=== PATIENT | female | born 1980 | race Caucasian/White ===

== ENCOUNTER 2022-08-17 17:52 | Emergency (ER) | payer OTHER, SELFPAY ==
--- NOTE | ~2022-08-17 | XR_ITS ---
EXAM: XR ankle RT min 3V, XR foot RT min 3V DATE: 08/17/2022 18:58 HISTORY: Pt twisted ankle today. Lateral ankle pain into foot . COMPARISON: None available. FINDINGS: Normal mineralization. Fracture fragments adjacent to the anterior talus and calcaneus, se en only in the medial oblique view of the foot. Tiny osseous fragment distal to the tip of the latera l malleolus. Question of cortical irregularity along the lateral aspect of the calcaneus, seen in the frontal view. No lytic or blastic lesion. Joint spaces are maintained. No erosion or periosteal calderón ge. Soft tissues within normal limits. IMPRESSION: Mildly displaced fracture fragment along the dorsal lateral aspect of the midfoot, may re present a fracture of the anterior calcaneal process or talar process. Tiny lateral malleolus avulsio n. Possible extensor digitorum brevis avulsion, correlate with lateral and posterior calcaneal pain/t enderness. Reviewed, dictated and finalized at location K. IMPRESSION: Mildly displaced fracture fragment along the dorsal lateral aspect of the midfoot, may represent a fracture of the anterior calcaneal process or t alar process. Tiny lateral malleolus avulsion. Possible extensor digitorum brev is avulsion, correlate with lateral and posterior calcaneal pain/tenderness.
[2022-08-17 18:08] VITALS: BP 124/84; PULSE 86; RESP 16; TEMP 36.9; O2SAT 98
--- NOTE | 2022-08-17 20:56 | ED.LOWEXIN ---
HPI - Extremity Injury (Lower) General Chief Complaint: Extremity Injury, Lower Stated Complaint: right foot injury Time Seen by Provider: 08/17/22 20:32 History of Present Illness HPI Narrative: This is a 42-year-old female who denies past medical history, presenting the emergency department with right foot pain after stumbling down stairs. She states she was walking downstairs when she missed stepped, seeing forced inversion of the right foot. She states her pain is 8 out of 10 with weightbearing but only 1-2 out of 10 at rest. She denies other injury or loss of consciousness Related Data Allergies Allergy/AdvReac Type Severity Reaction Status Date / Time No Known Allergies Allergy Verified 08/17/22 20:27 Review of Systems Review of Systems: CONSTITUTIONAL: Denies fever, chills, or sweats. EYES: Denies visual changes, redness, or discharge. ENT: Denies rhinorrhea, congestion, sore throat, or otalgia. CARDIOVASCULAR: Denies chest pain, palpitations, or edema. RESPIRATORY: Denies cough or dyspnea. GASTROINTESTINAL: Denies abdominal pain, nausea, vomiting, or diarrhea. GENITOURINARY: Denies dysuria or hematuria. SKIN: Denies rash or itching. MUSCULOSKELETAL: Right foot pain denies back pain, or myalgia. NEUROLOGIC: Denies headache, numbness, dizziness, or weakness. PSYCHIATRIC: Denies anxiety or depression. Exam Narrative: GENERAL: Well-appearing, well-nourished, and in no acute distress. HEAD: Normocephalic, atraumatic. EYES: PERRLA and EOMI. ENT: Nares clear, no rhinorrhea or epistaxis. Mucous membranes moist. Oropharynx without tonsillar hypertrophy exudate or other lesions. NECK: Supple. No adenopathy or masses. No carotid bruits or JVD CHEST: Clear to auscultation. No respiratory distress. No wheezes rales or rhonchi HEART: Regular rate and rhythm. No murmur heard. Normal peripheral pulses. ABDOMEN: Soft, nontender, nondistended, normal active bowel sounds. EXTREMITIES: Mild tenderness to palpation over the anterior lateral aspect of the right midfoot, no significant swelling, ecchymosis or erythema, normal range of motion. No edema. SKIN: Warm, dry, no rash. NEURO: No focal deficits. Alert and oriented x3. PSYCH: Normal mood and affect. Course Course Emergency Course: 21:00 - Findings with orthopedic surgeon, Dr. Waters who recommends posterior ankle splint, weightbearing as tolerated and follow-up. Discussed finding with the patient and recommendations as above. She discussed return emergency precautions including signs/symptoms of neurovascular compromise and infection. The patient was understands comfortable to plan. All questions answered to her satisfaction Vital Signs Vital signs: Vital Signs Temperature 98.4 F 08/17/22 18:08 Pulse Rate 86 08/17/22 18:08 Respiratory Rate 16 08/17/22 18:08 Blood Pressure 124/84 08/17/22 18:08 Pulse Oximetry 98 08/17/22 18:08 Temperature 98.4 F 08/17/22 18:08 Pulse Rate 86 08/17/22 18:08 Respiratory Rate 16 08/17/22 18:08 Blood Pressure 124/84 08/17/22 18:08 Pulse Oximetry 98 08/17/22 18:08 MDM - Extremity Injury (Lower) MDM Narrative Medical decision making narrative: Plan: Imaging, pain control, reassess Differential Diagnosis Differential diagnosis: Likely ankle sprain and strain and other (Fracture foot, other) Discharge Plan Discharge Clinical Impression: Fracture of talus of right ankle, closed, Acute pain of right foot Patient Disposition: Home, Self-Care Condition: Stable Instructions: Antibiotic Form, Talar Fracture in Adults (ED) Additional Instructions: You were seen in the emergency department. Your x-ray shows a fracture of the talus. I recommend wearing a posterior ankle splint, limiting weightbearing as much as possible and following up with an orthopedic surgeon in the 1 week. If you develop blue or cold toes, fevers with severe foot pain, or other emergent concerns for life, limb, or eyesigh
[2022-08-17] MEDS: oxyCODONE/ACETAMINOPHEN (*CRX) 5-325 MG TABLET 1 TABLET PO (20:58)
== END 2022-08-17 22:50 | disposition home or self-care (01) ==
LOC: ANHED 22:04
PROVIDERS: Emergency Provider Preventive Medicine Aerospace Medicine
DX: S92.101A Unspecified fracture of right talus, initial encounter for closed fracture (principal); W18.40XA Slipping, tripping and stumbling without falling, unspecified, initial encounter
CPT/HCPCS: 29515; 73610; 73630; 99284; A9270

== ENCOUNTER 2023-02-24 08:03 | Outpatient (CLI) | payer BC, OTHER, SELFPAY ==
[2023-02-24 18:59] LABS: Basophils Absolute Auto 0.1 K/mm3 (0.0-0.1); Basophils Percent Auto 0.6 % (0.2-1.2); Eosinophils Absolute Auto 0.2 K/mm3 (0-0.3); Eosinophils Percent Auto 1.8 % (0-4.4); Hematocrit 43.7 % (37.0-47.0); Hemoglobin 14.4 g/dL (12.0-15.0); Immature Granulocyte Absolute 0.04 K/mm3 (0.00-0.031); Immature Granulocyte Percent A 0.5 % (0-0.5); Lymphocytes Absolute Auto 2.98 K/mm3 (0.9-3.2); Lymphocytes Percent Auto 33.8 % (18.3-44.2); Mean Corpuscular Volume 97.1 fl (80-100); Mean Platelet Volume 9.1 fl (7.4-10.4); Monocytes Absolute Auto 0.6 K/mm3 (0.1-0.6); Neutrophils Percent Auto 56.3 % (45.5-73.1); Platelet Count Result 307 k/mm3 (150-375); Red Cell Distribution Width 13.5 % (11.5-14.5); White Blood Count 8.8 K/mm3 (4.5-10.0)
[2023-02-24 19:01] LABS: Alanine Aminotransferase 73 U/L (6-35); Albumin Level 4.5 g/dL (3.5-5.1); Alkaline Phosphatase 83 U/L (38-126); Anion Gap 5 mmol/L (8-16); Aspartate Amino Transferase 55 U/L (14-36); Bilirubin,Total 0.7 mg/dL (0.2-1.3); Blood Urea Nitrogen 16 mg/dL (7-17); Calcium 9.1 mg/dL (8.4-10.2); Carbon Dioxide 28 mmol/L (22-30); Chloride 106 mmol/L (98-107); Cholesterol 237 mg/dL (0-200); Estimated Glomerular Filt Rate > 60; Glucose 88 mg/dL (65-110); HDL Direct 40 mg/dL; Potassium 4.1 mmol/L (3.4-5.0); Sodium 139 mmol/L (137-145); Triglycerides 353 mg/dL (<150)
[2023-02-24 19:12] LABS: LDL Cholesterol Direct 148 mg/dL
[2023-02-24 19:35] LABS: Vitamin D 25 Hydroxy 24.9 ng/mL
== END 2023-02-24 08:04 | disposition home or self-care (01) ==
LOC: ANHGOSHLAB 08:05
PROVIDERS: PCP Internal Medicine; Visit Provider Nurse Practitioner
DX: F41.9 Anxiety disorder, unspecified (principal); Z13.220 Encounter for screening for lipoid disorders
CPT/HCPCS: 36415; 80053; 80061; 82306; 84443; 85025

== ENCOUNTER → 2023-04-18 07:42 | Outpatient (CLI) | payer BC, OTHER, SELFPAY ==
--- NOTE | ~2023-04-18 | US_ITS ---
US right upper quadrant INDICATION: Elevated liver function tests. PROCEDURE: Realtime right upper abdominal ultrasound. COMPARISON: No prior studies for comparison. FINDINGS: The pancreas is normal without focal mass or pancreatic ductal dilation. Liver echotexture is increased, consistent with fatty infiltration. There is normal directional flow in the portal ve in. There is comet tail artifact originating from the nondependent aspect of the gallbladder, consistent with adenomyomatosis. No gallstones, gallbladder wall thickening or pericholecystic fluid. Common bi le duct measures 7 mm. No sonographic Myers's sign. IMPRESSION: 1: Adenomyomatosis of the gallbladder. Common bile duct upper limits of normal measuring 7 mm. 2: Hepatic steatosis. Reviewed, dictated and finalized at location L.
== END ==
PROVIDERS: PCP Nurse Practitioner; Visit Provider Nurse Practitioner
DX: R74.8 Abnormal levels of other serum enzymes (principal); K76.0 Fatty (change of) liver, not elsewhere classified
CPT/HCPCS: 76705

== ENCOUNTER 2023-04-18 08:22 | Outpatient (CLI) | payer BC, OTHER, SELFPAY ==
[2023-04-18 15:54] LABS: HIV 1/2 Ab P24 Ag Result Negative (Negative)
[2023-04-18 17:38] LABS: Hepatitis B Surface Antigen Negative (Negative)
[2023-04-18 17:49] LABS: Iron 121 ug/dL (37-170)
[2023-04-18 17:55] LABS: Hepatitis C Virus Antibody Negative (Negative)
[2023-04-18 17:58] LABS: Percent Iron Saturation 35 % (20-50)
== END 2023-04-18 08:23 | disposition home or self-care (01) ==
LOC: ANHGOSHLAB 08:24
PROVIDERS: PCP Nurse Practitioner; Visit Provider Nurse Practitioner
DX: R74.8 Abnormal levels of other serum enzymes (principal)
CPT/HCPCS: 36415; 83540; 83550; 86703; 86803; 87340; G0432

== ENCOUNTER 2023-06-27 09:25 | Outpatient (CLI) | payer BC, OTHER, SELFPAY ==
[2023-06-27 10:40] LABS: Alanine Aminotransferase 62 U/L (6-35); Albumin Level 4.5 g/dL (3.5-5.1); Alkaline Phosphatase 88 U/L (38-126); Amylase 56 U/L (30-110); Aspartate Amino Transferase 55 U/L (14-36); Bilirubin,Total 0.6 mg/dL (0.2-1.3); Lipase 109 U/L (23-300)
== END 2023-06-27 09:26 | disposition home or self-care (01) ==
LOC: ANHLAB 09:27
PROVIDERS: PCP Nurse Practitioner; Visit Provider Surgery
DX: K80.50 Calculus of bile duct without cholangitis or cholecystitis without obstruction (principal); Z01.818 Encounter for other preprocedural examination
CPT/HCPCS: 36415; 80076; 82150; 83690; 86850; 86900; 86901

== ENCOUNTER 2023-06-29 01:32 | Day surgery (SDC) | payer BC, OTHER, SELFPAY ==
[2023-06-23 12:38] VITALS: BMI 36.5
--- NOTE | 2023-06-23 12:43 | PC.NURSE ---
Report to the Outpatient Waiting Room, entrance under the green pavilion located off [facility], at time 7:00 on date 06/29/23. Planned Procedure Time: 9:00. Time changes happen often and if your time is changed the preop area will call you the afternoon before. - You and your visitor will be asked to self-screen and do not enter if you have any COVID symptoms. - A mask is optional within the hospital at this time. Patients may have clear liquids (water, carbonated beverages, clear teas, apple juice) until 3 hours prior to surgery (6:00) with a maximum of 20 ounces. - No food from midnight until time of surgery Take the following medications with a SIP of water the morning of surgery: SERTRALINE DO NOT STOP ANY OF YOUR OTHER PRESCRIPTION MEDICATIONS PRIOR TO SURGERY ?EXCEPT THE FOLLOWING Medications to discontinue per physician: N/A Date to take last dose: N/A Please no make-up, nail norwegian, hairspray, perfume, deodorant, or body powder the day of surgery. No jewelry (including any body piercings) or valuables the day of surgery, leave them at home. Please take a shower or bath the night before, or the morning of, surgery with an antibacterial soap (HIBICLENS). Wear comfortable, loose fitting clothing. - Jewelry must be removed prior to entering the operating room. Rings and piercings that are not removed may be cut off. - The hospital will not accept responsibility for valuables. - Please leave all valuables, including medications, at home the day of surgery. If you are going home after surgery, a licensed solo truck driver must drive you home. - NO public transportation without another adult if you receive anesthesia. - We recommend that an adult stay with you for 24 hours following discharge. - We also recommend that you do not drive, make important decision, drink alcoholic beverages, or take any drugs that were not prescribed by your health care provider for at least 24 hours after your discharge time. Follow any additional instructions given to you from your surgeon. If you or anyone in your household have experienced Covid symptoms in the past week, please notify your surgeon or the nurse liaison at the phone number below for possible testing. Telephone instructions given to PT - JARAD HAQUE and asked if any additional questions and then verbalized understanding. Patient advised to call surgeon office or pre surgery nurse liaison [phone] if any additional questions.
[2023-06-29] VITALS (11 sets, daily range): BP systolic 107–139; BP diastolic 61–84; PULSE 69–105; RESP 12–20; TEMP 36.4–36.6; O2SAT 93–96
--- NOTE | 2023-06-29 07:16 | WPDHPUPDATE1 ---
History and Physical Update Update Date/Time: 06/29/23 07:16 History and Physical has been reviewed, including an updated exam of the patient. There are NO changes in the patient's condition. Risks, benefits, and alternatives have been discussed and questions answered. Patient agrees to proceed with procedure.
[2023-06-29] MEDS: ACETAMINOPHEN 500 MG TABLET 1000 MG PO (07:43)
[2023-06-29] MEDS: KETOROLAC 15 MG/ML VIAL (*BKC) IV PUSH (07:50)
--- NOTE | 2023-06-29 07:50 | WPDANESEPPF ---
Anes - Initial Pre Proc Eval Procedure: Operation Date: 06/29/23 09:00 Proposed Procedures p Laparoscopic Cholecystectomy - Chasity Webber MD Date/Time: 06/29/23 07:50 Surgeon: Chasity Webber MD Pre Op Diagnosis: Biliary Colic, Gallbladder Polyp Patient Data Age: 43 Gender: F Height: 1.73 m Weight: 108.9 kg Allergies Allergy/AdvReac Type Severity Reaction Status Date / Time No Known Allergies Allergy Verified 06/23/23 12:38 Home Medications Medication Instructions Recorded Confirmed Type sertraline 100 mg tablet 100 mg PO DAILY #90 tabs 04/07/23 06/23/23 Rx Patient hx anesthesia problems: none Family hx anesthesia problems: none Results Review: All pre-operative results and documents have been reviewed as part of the pre-operative evaluation. [facility] Past Medical History Medical History (Updated 06/16/23 @ 10:25 by Chiara Morse [facility]) Anxiety Surgical History Surgical History H/O section x2 Family History Family History Other Ovarian cancer Social History Social History Years smoked: 7 Smoking status: Former smoker Tobacco type: cigarettes Smoking end date: 10/30/05 Alcohol intake: current Drinks per week: 3 Substance use: never Substance use type: does not use Lack of Transportation: No Lack of Food: Never True Current Housing: I Have Housing Concerned About Future Housing: No Difficulty Paying Gas/Electric Bills: No Difficulty Paying for Meds: No Currently Unemployed: No Education: Bachelor's Degree Difficulty w/ Childcare or Family Care: No Living arrangements: with family Occupation/Education: occupation Gender identity (if verbalized by the patient): Female Spiritual care concerns: No Anes - Eval Final PreProcedure Day of Procedure 06/29/23 07:50 Patient weight: obese Heart: regular rate and rhythm Lungs: clear to auscultation Airway: Mallampati scale class II Neurological: alert and oriented Last oral intake: >/= 8 hours ASA classification: II Emergent: no Anesthetic plan: proceed Anesthesia type and monitoring: general ETT and standard monitoring Results Review: All pre-operative results and documents have been reviewed as part of the pre-operative evaluation. Informed Consent: The patient's anesthetic plan and its attendant risks and benefits were discussed with the patient/family/POA. Questions were solicited and answers provided to the satisfaction of the patient/family/POA.
[2023-06-29] MEDS: LACTATED RINGERS 1,000 ML 30 ML IV CONT ×2 (07:56→10:03)
[2023-06-29] MEDS: ceFAZolin 2 GM/D5W 50 ML 2 GM/50 ML BAG IVPB (09:00)
[2023-06-29] MEDS: BUPIVACAINE/EPINEPHRINE 0.5% 50 ML VIAL 30 ML INFILTRATE (09:30)
--- NOTE | 2023-06-29 09:48 | P.OP_ITS ---
Procedure Note - Detailed Date of Procedure 06/29/23 Pre-op Diagnosis Biliary Colic, Gallbladder Polyp Post-op Diagnosis Same Procedure Performed Laparoscopic cholecystectomy Surgeon Chasity Webber MD Anesthesia General Indications 43-year-old female presented to the office complaining of postprandial right upp er quadrant abdominal pain associated with nausea and vomiting. Workup including imaging significant for biliary colic, gallbladder polyp. Findings moderate cholecystitis Description of Procedure The patient was taken to the operating room placed in the supine position. After adequate induction of general anesthesia, the patient was prepped and draped in normal sterile fashion. A time-out was then performed to verify the patient's identity as well as the procedure being performed. I then made a 5 mm incision in the infraumbilical region. Through this, a Veress needle was placed into the peritoneal cavity and CO2 gas was then insufflated. After adequate pneumoperitoneum was achieved, the Veress needle was removed and a 5 mm optiview trocar was placed through this incision under direct visualization. I then placed the laparoscope through this trocar site and under direct visualization placed a further 12 mm subxiphoid port as well as 2 additional 5 mm ports in the right upper abdomen. The gallbladder was then identified and was noted to be moderately inflamed and distended. I was able to place a grasper at the dome of the gallbladder and this was retracted anterior and cephalad up over the liver. A 2nd retractor was then placed at the infundibulum and retracted laterally, this allowed visualization of the triangle of Calot. I then was able to visualize the cystic duct in its entirety from its proximal insertion into the gallbladder, to its distal junction with the common hepatic/common bile duct junction. At this point, I carefully skeletonized the proximal cystic duct with the [place] dissector. I then clipped and transected the proximal cystic duct. Next I visualized the cystic artery. Again the artery was skeletonized, clipped, and transected. I then used the Bovie cautery to take down the peritoneal attachments of the gallbladder off the liver bed. Once the gallbladder specimen was completely detached, an endo-pouch was placed through the 12 mm port site. I then placed the gallbladder specimen into the Endo pouch and removed the endo-pouch from the 12 mm port site. The specimen will now be sent to pathology for further review. I then copiously irrigated the right upper quadrant. Hemostasis was noted in the liver bed, the clips were noted to be in good position on both the cystic duct stump and the cystic artery stump. No other pathology was noted in the right upper quadrant. I then moved the laparoscope to the subxiphoid port. No iatrogenic injury or other pathology was noted in the lower abdomen. I then closed the 12 mm trocar site under direct visualization using the Dimas cone and 0 Vicryl suture. At this point, the abdomen was desufflated and all ports removed. All port sites were then closed with 4.O Monocryl subcuticular sutures. Dermabond was placed on each incision. The patient tolerated the procedure well, was extubated in the operating room postoperative and will be transferred to the recovery room in stable condition Estimated Blood Loss 5 Drains No Packing No Pathology Yes Complications No immediate complications Condition Stable Disposition PACU [facility] Billing Surgery - Charge Forward: Surgery Billing
[2023-06-29] MEDS: ONDANSETRON INJ 4 MG/2 ML VIAL IV PUSH (10:30)
[2023-06-29] MEDS: fentaNYL CITRATE INJ (*CRX) 100 MCG/2 ML VIAL 25 MCG IV PUSH ×3 (11:40→12:10)
[2023-06-29] MEDS: SCOPOLAMINE 1.5 MG PATCH TRANSDERM (11:45)
[2023-06-29] MEDS: diphenhydrAMINE HCl INJ 50 MG/ML VIAL 12.5 MG IV PUSH (11:45)
== END 2023-06-29 12:44 | disposition home or self-care (01) ==
PROVIDERS: PCP Nurse Practitioner; Visit Provider Surgery
PROC: 0FT44ZZ Resection of Gallbladder, Percutaneous Endoscopic Approach (ICD-10-PCS; CPT 47562; principal; 2023-06-29 09:00)
DX: K81.1 Chronic cholecystitis (principal); D13.5 Benign neoplasm of extrahepatic bile ducts; F41.9 Anxiety disorder, unspecified; Z87.891 Personal history of nicotine dependence; E66.9 Obesity, unspecified; Z68.36 Body mass index [BMI] 36.0-36.9, adult
CPT/HCPCS: 47562; 88304; A9270; J0690; J1100; J1170; J1200; J1885; J2250; J2405; J2704; J3010; J7030; J7120

== ENCOUNTER 2024-10-29 13:31 | Emergency (ER) | payer BC, OTHER, SELFPAY ==
[2024-10-29 14:17] VITALS: BP 128/85; PULSE 99; RESP 16; TEMP 36.6; O2SAT 96
--- NOTE | 2024-10-29 14:47 | ED.EXTPRO ---
HPI - Extremity Problem General Chief complaint: Extremity Problem,Nontraumatic Stated complaint: Gout Flare up Time Seen by Provider: 10/29/24 14:50 Source: patient, RN notes reviewed and old records reviewed Mode of arrival: ambulatory Limitations: no limitations History of Present Illness HPI Narrative: 44 year old female who presents to express cre with complaints of pain, redness and swelling of her left great toe base for the past 2 days. Patient reports that pain increases with ambulation and with palpation. Patient has not taken any OTC medication for her discomfort, rates her pain 8/10. MD Complaint: extremity pain Onset (ago): day(s) (10/27/2024) Pain Consistency: constant Location: left and toe (great toe) Severity scale (1-10): 8 Exacerbating factors: weight bearing and palpation Related Data Allergies Allergy/AdvReac Type Severity Reaction Status Date / Time No Known Allergies Allergy Verified 10/29/24 14:10 Review of Systems Review of Systems: CONSTITUTIONAL: Denies fever, chills, or sweats. EYES: Denies visual changes, redness, or discharge. ENT: Denies rhinorrhea, congestion, sore throat, or otalgia. CARDIOVASCULAR: Denies chest pain, palpitations, or edema. RESPIRATORY: Denies cough or dyspnea. GASTROINTESTINAL: Denies abdominal pain, nausea, vomiting, or diarrhea. GENITOURINARY: Denies dysuria or hematuria. SKIN: Denies rash or itching. MUSCULOSKELETAL: Denies back pain, positive for left great toe joint redness and swelling, or myalgia. NEUROLOGIC: Denies headache, numbness, or weakness. PSYCHIATRIC: Reports history of anxiety or depression. All systems reviewed & are unremarkable except as noted in HPI and below PMFSH Past Medical History Medical History (Updated 11/02/24 @ 13:19 by Geni Sommer NP) IBS (irritable bowel syndrome) Fracture of right elbow Anxiety Surgical History Surgical History Status post cholecystectomy lap dada 06/[address] Webber. H/O section x2 Family History Family History Other Ovarian cancer Social History Social History Years smoked: 7 Smoking status: Former smoker Tobacco type: cigarettes Smoking end date: 10/30/05 Alcohol intake: current Drinks per week: 3 Substance use: never Substance use type: does not use Lack of Transportation: No Lack of Food: Never True Current Housing: I Have Housing Concerned About Future Housing: No Difficulty Paying Gas/Electric Bills: No Difficulty Paying for Meds: No Currently Unemployed: No Education: Bachelor's Degree Difficulty w/ Childcare or Family Care: No Living arrangements: with family Occupation/Education: occupation Gender identity (if verbalized by the patient): Female Spiritual care concerns: No Comments At time of signature, agree with nursing past medical, surgical, social and family history. There is no relevant family history pertinent to the presenting complaint Exam Narrative: GENERAL: Well-appearing, well-nourished, obese, and in no acute distress. HEAD: Normocephalic, atraumatic. EYES: PERRLA and EOMI. ENT: Nares clear, no rhinorrhea or epistaxis. Mucous membranes moist.TM's normal throat pink with no swelling NECK: Supple. no lymphadenopathy CHEST: Clear to auscultation. No respiratory distress.SAO2 96% on room air HEART: Regular rate and rhythm. No murmur heard. Normal peripheral pulses. ABDOMEN: Soft, nontender, nondistended, normal active bowel sounds. EXTREMITIES: Normal range of motion. No edema.Exception noted to left great toe base which is swollen red and painful. Pain increases with ambulation and palpation, no known injury.CSM intact to left foot SKIN: Warm, dry, no rash. NEURO: No focal deficits. Alert and oriented x3. Course Course Emergency Course: Patient is aware of diagnosis, understands and agrees to treatment plan.? Anticipatory guidance given.? Patient agrees to follow-up as directed and is aware of reasons to seek care at the emergency department. Portions of this record may have been created with voice recognition software Level of Care: Express Care Visit Vital Signs Vital signs: Vital Signs Temperature 36.6 C 10/29/24 14:17 Pulse Rate 99 10/29/24 14:17 Respiratory Rate 16 10/29/24 14:17 Blood Pressure 128/85 10/29/24 14:17 Pulse Oximetry 96 10/29/24 14:17 Oxygen Delivery Room Air 10/29/24 14:17 Temperature 36.6 C 10/29/24 14:17 Pulse Rate 99 10/29/24 14:17 Respiratory Rate 16 10/29/24 14:17 Blood Pressure 128/85 10/29/24 14:17 Pulse Oximetry 96 10/29/24 14:17 Oxygen Delivery Room Air 10/29/24 14:17 Reviewed MDM - Extremity (Nontraumatic) Differential Diagnosis Differential diagnosis: Likely gout, cellulitis and other (pain with swelling and redness left great toe) Medical Records Attestation: I reviewed the patient's medical records. Critical Care Time Critical Care Time Critical Care Time: No Discharge Plan Discharge Clinical Impression: Gout of big toe Patient Disposition: Home, Self-Care Condition: Stable Instructions: Antibiotic Form, Low Purine Diet (ED), Gout (ED) Additional Instructions: Tylenol for lesser pain Ibuprofen regularly for the next 2-3 days for the inflammation prednisone taper take as prescribed maintain low purine diet Follow-up with PCP if further problems or concerns, will need uric acid levels drawn Ice to the area 20-30 minutes 4-6 times a day Elevate above heart If your symptoms persist, change or worsen significantly before you can contact your personal physician then please, without delay, go to the emergency department for further evaluation. Follow-up with PCP in 7-10 days or sooner if needed Follow up with PCP soon in regards to your blood pressure which is elevated above threshold for referral. Blood pressure above 120/80 may indicate pre-hypertension. 128/85 Patient Language: Bermudian Prescriptions: New prednisone 10 mg tablet 10 mg PO DIRECTED Qty: 21 0RF Rx Instructions: see taper instructions 6 tabs day 1, 5 tabs day 2, 4 tabs day 3, 3 tabs day 4, 2 tabs day 5, 1 tab day 6 start these tomorrow October No Action venlafaxine 75 mg capsule,extended release 24hr 75 mg PO DAILY Qty: 30 0RF Rx Instructions: LAST REFILL UNTIL SEEN Follow-up/Referrals: Radha Layton NP [Primary Care Provider] - Time of Disposition: 15:20 Quality Wendy Coma Scale Eyes: Open Verbal: Oriented and Alert Motor: Follows Commands Pike Coma Total Score: 15
== END 2024-10-29 15:27 | disposition home or self-care (01) ==
PROVIDERS: Emergency Provider Registered Nurse; PCP Nurse Practitioner
DX: M10.9 Gout, unspecified (principal); Z87.891 Personal history of nicotine dependence
CPT/HCPCS: 99213; G0463

== ENCOUNTER 2024-11-29 07:54 | Outpatient (CLI) | payer BC, OTHER, SELFPAY ==
--- OUTSIDE RECORDS SUMMARY | 2024-11-29 07:58 | XMS_ITS | Clinical Summary ---
Author Organization [facility] Address [address] [place] [address] Care Team Providers Care Career Law Clerk Name Role Phone Ady Bautista MD Primary Care Provider [phone] Allergies Active Allergy Reactions Criticality Noted Date Comments Diazepam Other (See comments) Low 06/06/2013 Oxycodone Other (See comments) ,Nausea And Vomiting Medium 02/18/2016 Medications levonorgestreL (MIRENA) IUD by intrauterine route Active venlafaxine XR (EFFEXOR-XR) 75 mg 24 hr capsule Take 1 capsule (75 mg total) by mouth daily 4 Active Active Problems Problem Noted Date Diagnosed Date History of benign breast biopsy 05/27/2020 Overview (05/27/2020): Right in 2015 IUD (intrauterine device) in place 05/21/2020 Overview (05/21/2020): MIRENA 02/18/2019 (originally 2009) Routine gynecological examination 05/21/2020 Assessment & Plan (06/07/2021 2:10 PM CDT): Patient is doing well and denies any problems. Annual mammogram was advised. Assessment & Plan (05/21/2020 12:12 PM CDT): Overall patient is doing well. I advised her that her breast exam was benign. She is overdue for her annual mammogram. She will get her mammogram. If her symptoms persist for longer than 4 weeks, she will call me back. Surgical History Surgery Date Site/Laterality Comments BREAST EXCISIONAL BIOPSY 10/30/2010 - 10/29/2011 Right Benign BREAST BIOPSY 01/05/2024 Right LAPAROSCOPIC CHOLECYSTECTOMY 05/2023 Medical History Medical History Date Comments History of benign breast biopsy 05/27/2020 Right in 2016 Family History Medical History Relation Name Comments Ovarian cancer Maternal Grandmother Ovarian cancer Mother Ovarian cancer Mother's Sister Breast cancer Paternal Grandmother 50's Colon cancer Neg Hx Relation Name Status Comments Maternal Grandmother Mother Alive Mother's Sister Alive Paternal Grandmother 50's Social History Tobacco Use Types Packs/Day Years Used Date Smoking Tobacco: Former Smokeless Tobacco: Never Alcohol Use Standard Drinks/Week Comments Yes 0 (1 standard drink = 0.6 oz pur e alcohol) occasionaaly Personal Safety Answer Date Recorded Getting School Help Needed Not on file 12/04 Comments No Sex and Gender Information Value Date Recorded Sex Assigned at Not on file Legal Sex Female 9:10 AM 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 ENGINEER Gender Identity Not on file Sexual Orientation Not on file Obstetrics History Para Term AB IAB SAB Ectopic Multiple Livin g Live Births 2 2 Date Outcome GA Total Labor Labor/2nd/3rd Weight Sex Type Anes PTL Esme A1 A5 Name Clin Para Para Comments C/S times 2 Last Filed Vital Signs Vital Sign Reading Time Taken Comments Blood Pressure 122/78 04/22/2024 10:00 AM CDT Pulse 78 01/05/2024 9:00 AM NETWORK 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 ENGINEER Temperature 36.1 ??C (97 ??F) 05/21/2020 11:45 AM CDT Respiratory Rate - - Oxygen Saturation 98% 05/21/2020 11:45 AM CDT Inhaled Oxygen Concentration - - Weight 110.7 kg (244 lb) 04/22/2024 10:00 AM CDT Height 172.7 cm (5' 8 ) 04/22/2024 10:00 AM CDT Body Mass Index 37.1 04/22/2024 10:00 AM CDT Plan of Treatment Health Maintenance Due Date Last Done Comments Colon Cancer Screening-Colonoscopy 1978 Depression Screening 1978 Hepatitis C Screening 1978 DTaP/Tdap/Td Vaccine (1 - Tdap) 1989 Hepatitis B Screening 1996 Covid-19 Vaccine (2 - season) 2024 10/06/2021 Influenza Vaccine (#1) 2024 08/12/2015 Breast Cancer Screening-Mammogram 12/27/2024 12/28/2023, 02/16/2022, 06/19/2020, Additional history exists Cervical Cancer Screening 04/22/2025 04/22/2024, Regular Well Visit/Exam 18-64 04/22/2025 04/22/2024, 06/23/2022, 06/07/2021, Additional history exists HPV Vaccines Aged Out No longer eligi ble based on patient's age to complete this topic Pneumococcal vaccine <65 Aged Out No longer eligible based on patient's age to complete this topic Medical Devices Implanted Type Area Department Of Natural Resources Officer Device Identifier Shelf Expiration Date Model / Serial / Lot [employer] Mammomark 8ga Bowtie Identifier Biopsy Site [id number] - [id number] Implanted:Qty: 1 on 01/05/[address] [facility] Right: Breast [employer] [id number] 12/23/2024 [id number] / / [id number] Procedures Procedure Name Priority Date/Time Associated Diagnosis Comments HIGH RISK HPV DNA DETECTION WITH GENOTYPING Routine 04/22/2024 5:07 PM CDT Screening for cervical cancer SCREENING MAMMOGRAM BILATERAL W PREM Schedule Routine, Read Routine (OP Routine) 12/28/2023 3:57 PM NETWORK 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 ENGINEER Screening mammogram, encounter for from Last 3 Months or Most Recently Relevant to Health Maintenance Results * High Risk HPV DNA Detection with Genotyping (Molecular component) (04/22/2024 5:07 PM CDT) HPV HR 16 Not Detected Not Detected HPV HR 18 Not Detected Not Detected [facility] HPV HR Non 16/18 Not Detected Not Detected [facility] Comment: Interpretive Data Nucleic acid amplification for detection of high-risk Human Papilloma virus (HPV) is performed by the Lissa Mau 4800 HPV test, which specifically detects high-risk HPV-16, 18, 31, 33, 35, 39, 45, 51, 52, 56, 58, 59, 66, and 68 genotypes. ??This assay has been approved by the [place] Food and Drug Administration for detection of HPV in cervical specimens collected by a physician using an endocervical brush/spatula or cervical broom and placed in the ThinPrep Pap Test PreservCyt collection containers. ??The performance characteristics of this test have been verified by the [facility]. Correlate with separately reported cytology results, as applicable. Interpretive data last revised 23 Endocervical 04/22/2024 5:07 PM CDT 04/22/2024 10:06 PM CDT Narrative [facility] - 04/25/2024 8:17 PM CDT Clinical history and diagnosis->screening Testing type->Screening Last menstrual period (date if known)->IUD in placec us Marcela Bell MD LAB BODY FLUIDS AND [facility]S ORDERABLES [facility] [address] Department [place] [address] * (ABNORMAL) Screening Mammogram Bilateral W Prem (12/28/2023 3:57 PM NETWORK 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 ENGINEER) Anatomical Region Laterality Modality Breast Bilateral Mammography Narrative 12/28/2023 5:01 PM NETWORK 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 ENGINEER Examination: Screening Mammogram Bilateral W Prem: 12/28/23 Clinical: Screening mammogram, encounter for. Prior Study Comparisons: Comparison was made to the prior available relevant studies at the time of interpretation. Findings: Screening Mammogram Bilateral W Prem Right 1) Calcifications: There are amorphous calcifications seen in the upper outer quadrant of the right breast. Left No significant masses, malignant type calcifications, skin thickening, nipple retraction, or significant lymphadenopathy is noted in this breast. The CAD review showed no significant findings. The breasts are heterogeneously dense, which may obscure small masses. The patient will be notified of results by letter. Impression: BI-RADS?? ATLAS category (overall): 0 - Incomplete: Needs Additional Imaging Evaluation ?? Magnification views is recommended. Overall Assessment: 0 - Incomplete: Needs Additional Imaging Evaluation us Self Screening Mammogram IMG MAMMO PROCEDURES Fi nal Result from Last 3 Months or Most Recently Relevant to Health Maintenance Insurance Member Subscriber Plan / Payer ( fective 2018-Present) Name:Marcelina Haque Relation to Subscriber:Spouse Name:ROMAN HAQUE Date of :1977 (Home) Address: [address] [place], [place] [address] Payer ID:[id number] (NAIC) Type:[facility] HMO/PPO Address: [place] [phone] [facility] Member Subscriber Plan / Payer ( fective 2018-Present) Name:Marcelina Haque Relation to Subscriber:Spouse Name:ROMAN HAQUE Date of :1977 (Home) Address: [address] [place] [id number] Payer ID:[id number] (NAIC) Type:[facility] HMO/PPO Address: [place] [id number] [address] [place] [place] [address] [facility] ACCESS CHOICE Care Teams Career Law Clerk Relationship Specialty Start Date End Date Ady Bautista MD PCP - General 06/19/20
--- OUTSIDE RECORDS SUMMARY | 2024-11-29 07:58 | XMS_ITS | Clinical Summary ---
Author Organization [facility] Address [address] [place] [id number] Care Team Providers Care Interactive Web Developer Name Role Phone Unavailable Primary Care Provider Unavailabl e Social History Tobacco Use Types Packs/Day Years Used Date Smoking Tobacco: Never Assessed Comments Unknown Sex and Gender Information Value Date Recorded Sex Assigned at Not on file Legal Sex Female 1:24 PM MAINTENANCE SPECIALIST Gender Identity Not on file Sexual Orientation Not on file Plan of Treatment Health Maintenance Due Date Last Done Comments Hepatitis C Virus (HCV) Screening 1978 TdaP Immunization 1978 Hepatitis B Immunization (1 of 3 - 19+ 3-dose series) 1997 Pap Smear 1999 Cervical Cancer Screening (CCS) 2008 HPV/Cotest 2008 Discussion re Starting/Frequ ency of Mammograms 2018 Colonoscopy 2023 Colorectal Cancer Screening 2023 Influenza Immunization (#1) 2024 SARS-COV-2 Immunization (2023- season) 2024 Respiratory Syncytial Virus (RSV) Immunization (Adult) (1 - 1-dose 75+ series) 2053 Meningococcal Immunization (ACWY) Aged Out No longer eligible based on patient's age to complete this topic Pneumococcal Immunization Combined Aged Out No longer eligible based on patient's age to complete this topic Rotavirus Immunization Aged Out No lo nger eligible based on patient's age to complete this topic Insurance [employer] on file
--- OUTSIDE RECORDS SUMMARY | 2024-11-29 07:58 | XMS_ITS | Referral Summary ---
Author Organization [facility] Address [address] [place] [address] Care Team Providers Care Graphic Production Artist Name Role Phone Ady Bautista MD Primary Care Provider [phone] Allergies Active Allergy Reactions Criticality Noted Date [...] 4 weeks, she will call me back. Social History Tobacco Use Types Packs/Day Years [...] on file Legal Sex Female 9:10 AM ELECTRIC TRACK SWITCH MAINTAINER Gender Identity Not on file Sexual Orientation Not on file Last Filed Vital Signs Vital Sign Reading Time Taken Comments Blood Pressure 122/78 04/22/2024 10:00 AM CDT Pulse 78 01/05/2024 9:00 AM ELECTRIC TRACK SWITCH MAINTAINER Temperature 36.1 ??C (97 ??F) 05/21/2020 11:45 AM CDT Respiratory Rate - - Oxygen Saturation 98% 05/21/2020 11:45 AM CDT Inhaled Oxygen Concentration - - Weight 110.7 kg (244 lb) 04/22/2024 10:00 AM CDT Height 172.7 cm (5' 8 ) 04/22/2024 10:00 AM CDT Body Mass Index 37.1 04/22/2024 10:00 AM CDT Plan of Treatment Not on file Medical Devices Implanted Type Area Fabricator Artificial Breast Device Identifier Shelf Expiration Date Model / Serial / Lot [employer] Mammomark 8ga Bowtie Identifier Biopsy Site [id number] - [id number] Implanted:Qty: 1 on 01/05/2024 at [facility] Right: Breast [employer] [id number] 12/23/2024 [id number] / / [id number] Procedures Procedure Name Priority Date/Time Associated Diagnosis Comments HIGH RISK HPV DNA DETECTION WITH GENOTYPING Routine 04/22/2024 5:07 PM CDT Screening for cervical cancer SCREENING MAMMOGRAM BILATERAL W PREM Schedule Routine, Read Routine (OP Routine) 12/28/2023 3:57 PM ELECTRIC TRACK SWITCH MAINTAINER Screening mammogram, encounter for from Last 3 Months or Most Recently Relevant to Health Maintenance Results * High Risk HPV DNA Detection with Genotyping (Molecular component) (04/22/2024 5:07 PM CDT) HPV HR 16 Not Detected Not Detected HPV HR 18 Not Detected Not Detected [facility] HPV HR Non 16/18 Not Detected Not Detected [facility] Comment: Interpretive Data Nucleic acid amplification for [...] this test have been verified by the [facility]. Correlate with separately reported cytology results, as applicable. Interpretive data last revised 23 Endocervical 04/22/2024 5:07 PM CDT 04/22/2024 10:06 PM CDT Narrative [facility] - 04/25/2024 8:17 PM CDT Clinical history and diagnosis->screening Testing type->Screening Last menstrual period (date if known)->IUD in placec Marcela Bell MD LAB BODY FLUIDS AND ST OOLS ORDERABLES Final Result [facility] [address] [place] [address] * (ABNORMAL) Screening Mammogram Bilateral W Prem (12/28/2023 3:57 PM ELECTRIC TRACK SWITCH MAINTAINER) Anatomical Region Laterality Modality Breast Bilateral Mammography Narrative 12/28/2023 5:01 PM ELECTRIC TRACK SWITCH MAINTAINER Examination: Screening Mammogram Bilateral W Prem: 12/28/23 [...] Most Recently Relevant to Health Maintenance Insurance [facility] ANTHEM ACCESS CHOICE [facility] ANTHEM ACCESS CHOICE Care Teams Graphic Production Artist Relationship Specialty Start Date End Date Ady Bautista MD PCP - General 06/19/20
--- OUTSIDE RECORDS SUMMARY | 2024-11-29 07:59 | XMS_ITS | Encounter Summary ---
Author Organization [facility] Address [address] [place] [address] Phone Care Team Providers Care Senior Occupational Therapist Name Role Phone No, Physician Primary Care Provider [phone] Ady Bautista MD Primary Care Provider [phone] Encounter Details Date Type Department Care Team (Late st Contact Info) Description 01/11/2018 Orders Only [facility] ProviderAntonio MD [address] [place] [address] [phone] Social History Tobacco Use Types Packs/Day Years Used Date Smoking Tobacco: Never Assessed Comments Unknown Sex and Gender Information Value Date Recorded Sex Assigned at Not on file Legal Sex Female 9:10 AM EXTERNAL RELATIONS DIRECTOR Gender Identity Not on file Sexual Orientation Not on file documented as of this encounter Plan of Treatment Not on file documented as of this encounter Procedures Procedure Name Priority Date/Time Associated Diagnosis Comments CYTOLOGY 01/11/2018 12:00 AM CDT documented in this encounter Results * CYTOLOGY (01/11/2018 12:00 AM CDT) Narrative 01/11/2018 12:00 AM CDT Ordered by an unspecified provider. Historical Provider LAB CYTOLOGY ORDERABLES F inal Result documented in this encounter Visit Diagnoses Not on filedocumented in this encounter Care Teams Senior Occupational Therapist Relationship Specialty Start Date End Date No, Physician PCP - General 01/11/18 06/18/20 Ady Bautista MD PCP - General 06/19/20 documented as of this encounter
--- OUTSIDE RECORDS SUMMARY | 2024-11-29 07:59 | XMS_ITS | Patient Health Summary ---
Author Organization [facility] Address [address] [place] [address] Care Team Providers Care Community Nutrition Educator Name Role Phone Ady Bautista MD Primary Care Provider Unavailabl e Note from [facility],non-owned Affiliates and Associated Physician Practices is amultiple site organization consisting of ambulatory clinics and hospital sitesin [place], [place], [place] and [place]. This disclosure is being madepursuant to the Care Everywhere program and may not contain all information available regarding this patient. Last updated 18.[facility] Swapsee Allergies * Diazepam(Psychiatric) Medications * Be aware that medications may not be up to date on this document. Alwaysverify current medications with the patient. * hydrochlorothiazide (MICROZIDE) 12.5 MG capsule(Started 08/08/2013) Take 1 Cap by mouth once daily. 5 refills left Active Problems Problem Noted Date Diagnosed Date Cyst of breast 06/06/2013 Cyst, ovarian 06/06/2013 Benign paroxysmal positional vertigo 06/06/2013 Headache 06/06/2013 Dizziness Head ache Insomnia Social History Tobacco Use Types Packs/Day Years Used Date Smoking Tobacco: Light Smoker Cigarettes Comments:1 cig every now and then Alcohol Use Standard Drinks/Week Comments Yes 0 (1 standard drink = 0.6 oz pur e alcohol) Sex and Gender Information Value Date Recorded Sex Assigned at Not on file Gender Identity Not on file Sexual Orientation Not on file Last Filed Vital Signs Vital Sign Reading Time Taken Comments Blood Pressure 122/80 08/08/2013 11:11 AM CDT Pulse 74 08/08/2013 11:11 AM CDT Temperature 37.1 ??C (98.7 ??F) 07/15/2013 2:48 PM CD T Respiratory Rate 16 06/06/2013 3:17 PM CDT Oxygen Saturation - - Inhaled Oxygen Concentration - - Weight 95.3 kg (210 lb) 08/08/2013 11:11 AM CDT Height 175.3 cm (5' 9 ) 08/08/2013 11:11 AM CDT Body Mass Index 31.01 08/08/2013 11:11 AM CDT Procedures * US BREAST LEFT COMPLETE(Performed 08/30/2013) Performed for Abnormal mammogram * MAMMO LEFT DIAGNOSTIC(Performed 08/30/2013) Performed for Abnormal mammogram * IMAGING/RADIOLOGY/XRAY RESULTS ORDER(Performed 08/20/2013) * THYROID PEROXIDASE ANTIBODY(Performed 08/15/2013) Performed for Menieres syndrome * FOLATE(Performed 08/15/2013) Performed for Menieres syndrome * VITAMIN B12(Performed 08/15/2013) Performed for Menieres syndrome * YAQUELIN BLOOD SCREEN W/REFLEX TITER(Performed 08/15/2013) Performed for Menieres syndrome * AMYLASE BLOOD(Performed 08/15/2013) Performed for Menieres syndrome * LIPASE BLOOD(Performed 08/15/2013) Performed for Menieres syndrome * HEMOGLOBIN A1C(Performed 08/15/2013) Performed for Menieres syndrome * T4 FREE(Performed 08/15/2013) Performed for Menieres syndrome * T3 FREE(Performed 08/15/2013) Performed for Menieres syndrome * TSH(Performed 08/15/2013) Performed for Menieres syndrome * MAMMO BILAT SCREENING(Performed 08/15/2013) Performed for Family history of breast cancer * MRI ANGIO NECK WO CONTRAST(Performed 06/13/2013) Performed for Family history of aneurysm * MRI ANGIO BRAIN ARTERIAL WO CONT(Performed 06/13/2013) Performed for Family history of aneurysm * MRI BRAIN WWO CONTRAST(Performed 06/13/2013) Performed for Dizziness and giddiness, Abnormal neurological findings Results * US BREAST UNILATERAL LEFT (08/30/2013 10:43 AM CDT) Anatomical Region Laterality Modality Breast Left Ultrasound 08/30/2013 10:4 6 AM CDT Narrative 08/30/2013 10:53 AM CDT EXAMINATION: Left digital diagnostic mammogram and ultrasound on August 30, 2013 INDICATION: Nodular density in the outer left breast seen on screening exam August 15, 2013 FINDINGS: Computer assisted detection was utilized. ?? Tissue density is heterogeneously dense. ??The nodular density is not well-defined on spot magnification. Subtle nodular density in the outer left breast is seen normally on repeat mammogram. Dedicated ultrasound of the outer left breast was performed: -At 12:00 4 cm from the nipple there is a 7 x 3 x 7 mm wider than tall hypoechoic cystic structure with increased through transmission. -At 1:00 4 cm from the nipple there is a 3 x 3 x 2 mm anechoic rounded structure with increased through transmission consistent with cyst. -At 3:00 5 cm from the nipple there is a wider than tall anechoic structure with a thin septation and increased through transmission which measures approximately 8 x 8 x 5 mm. -At 4:00, 5 cm from the nipple there is a wider than tall anechoic well-demarcated cyst which measures 9 x 6 x 4 mm. This demonstrates increased through transmission. No suspicious abnormality is identified on ultrasound. ASSESSMENT: BIRADS Category 2: ?? Benign finding(s).. RECOMMENDATION: Begin annual mammographic evaluation at age 40 unless palpable lump is felt or clinical suspicion remains high for breast pathology. [facility] utilizes Prevacus as a reminder system to notify patients of their next recommended mammogram. Procedure Note Sharad Donahue MD - 08/30/2013 EXAMINATION: Left digital diagnostic mammogram and ultrasound on August 30, 2013 INDICATION: Nodular density in the outer left breast seen on screening exam August 15, 2013 FINDINGS: Computer assisted detection was utilized. Tissue density is heterogeneously dense. The nodular density is not well-defined on spot magnification. Subtle nodular density in the outer left breast is seen normally on repeat mammogram. Dedicated ultrasound of the outer left breast was performed: -At 12:00 4 cm from the nipple there is a 7 x 3 x 7 mm wider than tall hypoechoic cystic structure with increased through transmission. -At 1:00 4 cm from the nipple there is a 3 x 3 x 2 mm anechoic rounded structure with increased through transmission consistent with cyst. -At 3:00 5 cm from the nipple there is a wider than tall anechoic structure with a thin septation and increased through transmission which measures approximately 8 x 8 x 5 mm. -At 4:00, 5 cm from the nipple there is a wider than tall anechoic well-demarcated cyst which measures 9 x 6 x 4 mm. This demonstrates increased through transmission. No suspicious abnormality is identified on ultrasound. ASSESSMENT: BIRADS Category 2: Benign finding(s).. RECOMMENDATION: Begin annual mammographic evaluation at age 40 unless palpable lump is felt or clinical suspicion remains high for breast pathology. [facility] utilizes Prevacus as a reminder system to notify patients of their next recommended mammogram. Naldo Meraz MD US ORDERABLES * SUSIE DIAG DIRECT DIG IMAGE UNI LEFT [id number] (08/30/2013 10:23 AM CDT) Anatomical Region Laterality Modality Left Mammography 08/30/2013 10:4 6 AM CDT Narrative 08/30/2013 10:53 AM CDT EXAMINATION: Left digital diagnostic mammogram and ultrasound on August 30, 2013 INDICATION: Nodular density in the outer left breast seen on screening exam August 15, 2013 FINDINGS: Computer assisted detection was utilized. ?? Tissue density is heterogeneously dense. ??The nodular density is not well-defined on spot magnification. Subtle nodular density in the outer left breast is seen normally on repeat mammogram. Dedicated ultrasound of the outer left breast was performed: -At 12:00 4 cm from the nipple there is a 7 x 3 x 7 mm wider than tall hypoechoic cystic structure with increased through transmission. -At 1:00 4 cm from the nipple there is a 3 x 3 x 2 mm anechoic rounded structure with increased through transmission consistent with cyst. -At 3:00 5 cm from the nipple there is a wider than tall anechoic structure with a thin septation and increased through transmission which measures approximately 8 x 8 x 5 mm. -At 4:00, 5 cm from the nipple there is a wider than tall anechoic well-demarcated cyst which measures 9 x 6 x 4 mm. This demonstrates increased through transmission. No suspicious abnormality is identified on ultrasound. ASSESSMENT: BIRADS Category 2: ?? Benign finding(s).. RECOMMENDATION: Begin annual mammographic evaluation at age 40 unless palpable lump is felt or clinical suspicion remains high for breast pathology. [facility] utilizes Prevacus as a reminder system to notify patients of their next recommended mammogram. Procedure Note Sharad Donahue MD - 08/30/2013 EXAMINATION: Left digital diagnostic mammogram and ultrasound on August 30, 2013 INDICATION: Nodular density in the outer left breast seen on screening exam August 15, 2013 FINDINGS: Computer assisted detection was utilized. Tissue density is heterogeneously dense. The nodular density is not well-defined on spot magnification. Subtle nodular density in the outer left breast is seen normally on repeat mammogram. Dedicated ultrasound of the outer left breast was performed: -At 12:00 4 cm from the nipple there is a 7 x 3 x 7 mm wider than tall hypoechoic cystic structure with increased through transmission. -At 1:00 4 cm from the nipple there is a 3 x 3 x 2 mm anechoic rounded structure with increased through transmission consistent with cyst. -At 3:00 5 cm from the nipple there is a wider than tall anechoic structure with a thin septation and increased through transmission which measures approximately 8 x 8 x 5 mm. -At 4:00, 5 cm from the nipple there is a wider than tall anechoic well-demarcated cyst which measures 9 x 6 x 4 mm. This demonstrates increased through transmission. No suspicious abnormality is identified on ultrasound. ASSESSMENT: BIRADS Category 2: Benign finding(s).. RECOMMENDATION: Begin annual mammographic evaluation at age 40 unless palpable lump is felt or clinical suspicion remains high for breast pathology. [facility] utilizes Prevacus as a reminder system to notify patients of their next recommended mammogram. Naldo Meraz MD MAMMO ORDERABLES * IMAGING/RADIOLOGY/XRAY RESULTS ORDER (08/20/2013 11:43 PM CDT) Anatomical Region Laterality Modality Other Narrative 08/20/2013 11:43 PM CDT Ordered by an unspecified provider. Transcriptions Document, Scanned - 08/20/2013 11:43 PM CDT Scanned Document IMAGING * THYROID PEROXIDASE ANTIBODY (08/15/2013 2:55 PM CDT) Thyroid Peroxidase TPO Antibody 0.3 0.0 - 9.0 IU/mL 08/17/2013 7:02 AM CDT [facility] Blood specimen (specimen) BLOOD SPECIMEN / Unknown Venipuncture / Unknown 08/15/2013 2:55 PM CDT 08/15/2013 3:39 PM CDT Naldo Meraz MD LAB - CHEMISTRY ORD ERABLES [facility] [address] [place] [address] * YAQUELIN BLOOD SCREEN W/REFLEX TITER (08/15/2013 2:54 PM CDT) YAQUELIN Negative Negative 08/16/2013 11:52 AM CDT [facility] Blood BLOOD SPECIMEN / Unknown Venipuncture / Unknown 08/15/2013 2:54 PM CDT 08/15/2013 3:39 PM CDT Naldo Meraz MD LAB - CHEMISTRY ORD ERABLES Performing Organization Address City/[facility] Co de Phone Number [facility] [address] [place] [phone] * FOLATE (08/15/2013 2:54 PM CDT) Folate 15.8 3.1 - 17.5 ng/mL 08/15/2013 4:20 PM CDT [facility] Blood BLOOD SPECIMEN / Unknown Venipuncture / Unknown 08/15/2013 2:54 PM CDT 08/15/2013 3:39 PM CDT Naldo Meraz MD LAB - CHEMISTRY ORD ERABLES Performing Organization Address City/[facility]/ZIP Co de Phone Number [facility] [address] [place] [phone] * VITAMIN B12 (08/15/2013 2:54 PM CDT) Vitamin B12 348 211 - 911 pg/mL 08/15/2013 4:20 PM CDT [facility] Blood BLOOD SPECIMEN / Unknown Venipuncture / Unknown 08/15/2013 2:54 PM CDT 08/15/2013 3:39 PM CDT Naldo Meraz MD LAB - CHEMISTRY ORD ERABLES Performing Organization Address [facility]/ZIP Co de Phone Number [facility] [address] [place] [address] * T3 FREE (08/15/2013 2:53 PM CDT) T3 Free 3.02 2.18 - 3.98 pg/mL 08/15/2013 4:24 PM CDT [facility] Comment: Blood BLOOD SPECIMEN / Unknown Venipuncture / Unknown 08/15/2013 2:53 PM CDT 08/15/2013 3:39 PM CDT Naldo Meraz MD LAB - CHEMISTRY ORD ERABLES Performing Organization Address [facility] Co de Phone Number [facility] [address] [place] [address] * HEMOGLOBIN A1C (08/15/2013 2:53 PM CDT) [facility] Hemoglobin A1c 5.1 4.2 - 6.3 % 08/15/2013 4:50 PM CDT [facility] Estimated Average Glucose 100 mg/dL 08/15/2013 4:50 PM CDT [facility] Whole Blood BLOOD SPECIMEN WITH EDTA / Unknown Venipuncture / Unknown 08/15/2013 2:53 PM CDT 08/15/2013 3:39 PM CDT Naldo Meraz MD LAB - CHEMISTRY ORD ERABLES Performing Organization Address [facility] Co de Phone Number [facility] [address] [place] [address] * LIPASE BLOOD (08/15/2013 2:53 PM CDT) Pathologist [facility] Lipase 182 73 - 393 U/L 08/15/2013 4:15 PM CDT [facility] Comment: Blood BLOOD SPECIMEN / Unknown Venipuncture / Unknown 08/15/2013 2:53 PM CDT 08/15/2013 3:39 PM CDT Naldo Meraz MD LAB - CHEMISTRY ORD ERABLES [facility] [address] [place] [phone] * AMYLASE BLOOD (08/15/2013 2:53 PM CDT) Pathologist [facility] Amylase 43 15 - 115 U/L 08/15/2013 4:15 PM CDT [facility] Comment: Blood BLOOD SPECIMEN / Unknown Venipuncture / Unknown 08/15/2013 2:53 PM CDT 08/15/2013 3:39 PM CDT Naldo Meraz MD LAB - CHEMISTRY ORD ERABLES Performing Organization Address [facility] Co de Phone Number [facility] [address] [place] [phone] * TSH (08/15/2013 2:53 PM CDT) Pathologist [facility] TSH 1.70 0.358 - 3.740 uIU/mL 08/15/2013 4:24 PM CDT [facility] Comment: Blood BLOOD SPECIMEN / Unknown Venipuncture / Unknown 08/15/2013 2:53 PM CDT 08/15/2013 3:39 PM CDT Naldo Meraz MD LAB - CHEMISTRY ORD ERABLES Performing Organization Address [facility] Co de Phone Number [facility] [address] [place] [phone] * T4 FREE (08/15/2013 2:53 PM CDT) Pathologist [facility] T4 Free 0.94 0.65 - 1.34 ng/dL 08/15/2013 4:15 PM CDT [facility] Comment: Blood BLOOD SPECIMEN / Unknown Venipuncture / Unknown 08/15/2013 2:53 PM CDT 08/15/2013 3:39 PM CDT Naldo Meraz MD LAB - CHEMISTRY ORD ERABLES Performing Organization Address [facility]/State/[facility] Co de Phone Number [facility] [address] [place] [phone] * SUSIE SCREENING DIGITAL IMAGE BILATERAL [id number] (08/15/2013 2:01 PM CDT) Anatomical Region Laterality Modality Breast Bilateral Mammography 08/21/2013 2:29 PM CDT Narrative 08/21/2013 2:30 PM CDT EXAMINATION: Digital screening mammogram on 08/15/2013. PRIOR: 06/09/2010. FINDINGS: Computer assisted detection was utilized. ??The tissue density is dense which limits the sensitivity of the mammography. ??There is a one CM diameter nodular density with irregular margin in the left breast craniocaudal image laterally and about 6 CM from the nipple. It was not seen before the prior mammogram. Additional evaluation is recommended. The right breast is unremarkable and unchanged. ASSESSMENT: BIRADS Category 0: ?? Incomplete - Needs additional imaging evaluation. RECOMMENDATION: Spot image left breast with possible sonogram. [facility] utilizes Prevacus as a reminder system to notify patients of their next recommended mammogram. Procedure Note Becky Puckett MD - 08/21/2013 EXAMINATION: Digital screening mammogram on 08/15/2013. PRIOR: 06/09/2010. FINDINGS: Computer assisted detection was utilized. The tissue density is dense which limits the sensitivity of the mammography. There is a one CM diameter nodular density with irregular margin in the left breast craniocaudal image laterally and about 6 CM from the nipple. It was not seen before the prior mammogram. Additional evaluation is recommended. The right breast is unremarkable and unchanged. ASSESSMENT: BIRADS Category 0: Incomplete - Needs additional imaging evaluation. RECOMMENDATION: Spot image left breast with possible sonogram. [facility] utilizes Prevacus as a reminder system to notify patients of their next recommended mammogram. Naldo Meraz MD MAMMO ORDERABLES * MRI BRAIN WITH AND WITHOUT CONTRAST (06/13/2013 3:13 PM CDT) Anatomical Region Laterality Modality Head Magnetic Resonan ce 06/13/2013 3:58 PM CDT Impressions 06/13/2013 5:22 PM CDT Negative MRI brain. Narrative 06/13/2013 5:22 PM CDT MRI BRAIN WITH AND WITHOUT IV CONTRAST DATE: 06/13/2013. HISTORY: Dizziness, headaches. TECHNIQUE: Multiplanar, multisequence magnetic resonance imaging of the brain performed both before and after intravenous administration of approximately 15 mL of Omniscan gadolinium contrast. FINDINGS: There is no evidence of mass, mass effect, midline shift or hemorrhage. There is no epidural or subdural hematoma. There is no diffusion restriction to suggest hyperacute/acute ischemia or cytotoxic edema. No focal cortical infarct is seen. The posterior cranial fossa is unremarkable. The sella turcica and pituitary are unremarkable. There is mucosal thickening in the inferior aspect of the right maxillary sinus. Postcontrast imaging demonstrates no abnormal enhancement. Procedure Note Godfrey Arzate MD - 06/13/2013 MRI BRAIN WITH AND WITHOUT IV CONTRAST DATE: 06/13/2013. HISTORY: Dizziness, headaches. TECHNIQUE: Multiplanar, multisequence magnetic resonance imaging of the brain performed both before and after intravenous administration of approximately 15 mL of Omniscan gadolinium contrast. FINDINGS: There is no evidence of mass, mass effect, midline shift or hemorrhage. There is no epidural or subdural hematoma. There is no diffusion restriction to suggest hyperacute/acute ischemia or cytotoxic edema. No focal cortical infarct is seen. The posterior cranial fossa is unremarkable. The sella turcica and pituitary are unremarkable. There is mucosal thickening in the inferior aspect of the right maxillary sinus. Postcontrast imaging demonstrates no abnormal enhancement. IMPRESSION Negative MRI brain. Naldo Meraz MD MR ORDERABLES * MRA ANGIO NECK NON CONTRAST [[id number]] (06/13/2013 3:13 PM CDT) Anatomical Region Laterality Modality Head Magnetic Resonan ce 06/13/2013 3:58 PM CDT Impressions 06/13/2013 3:58 PM CDT Normal MRA of neck Narrative 06/13/2013 3:58 PM CDT MRA neck INDICATION: Dizziness and headaches TECHNIQUE: 2-D and 3-D [id number] images were obtained through the carotid bifurcations. FINDINGS: The vertebral arteries are patent bilaterally. The left vertebral artery is slightly dominant. There is no significant narrowing of the carotid bulb. No significant stenosis of the proximal internal carotid artery is seen when the caliber of the carotid bulb is compared to that of the distal internal carotid artery. Procedure Note Geni Henriquez MD - 06/13/2013 MRA neck INDICATION: Dizziness and headaches TECHNIQUE: 2-D and 3-D [id number] images were obtained through the carotid bifurcations. FINDINGS: The vertebral arteries are patent bilaterally. The left vertebral artery is slightly dominant. There is no significant narrowing of the carotid bulb. No significant stenosis of the proximal internal carotid artery is seen when the caliber of the carotid bulb is compared to that of the distal internal carotid artery. IMPRESSION Normal MRA of neck Naldo Meraz MD MR ORDERABLES * MRA ANGIO HEAD NON CONTRAST MP (06/13/2013 3:13 PM CDT) Anatomical Region Laterality Modality Head Magnetic Resonan ce 06/13/2013 4:05 PM CDT Impressions 06/13/2013 4:05 PM CDT No large vessel occlusion or aneurysm. Narrative 06/13/2013 4:05 PM CDT MRA Head Without Contrast INDICATION: Dizziness and headache TECHNIQUE: MRA [id number] of the head without contrast. 3D/MIP reconstructions performed on independent workstation. FINDINGS: The major intracranial vessels are patent and no aneurysm is seen. Procedure Note Godfrey Arzate MD - 06/13/2013 MRA Head Without Contrast INDICATION: Dizziness and headache TECHNIQUE: MRA [id number] of the head without contrast. 3D/MIP reconstructions performed on independent workstation. FINDINGS: The major intracranial vessels are patent and no aneurysm is seen. IMPRESSION No large vessel occlusion or aneurysm. Naldo Meraz MD MR ORDERABLES Care Teams Community Nutrition Educator Relationship Specialty Start Date End Date Ady Bautista MD PCP - General Internal Medicine 05/28/13
--- OUTSIDE RECORDS SUMMARY | 2024-11-29 07:59 | XMS_ITS | Clinical Summary ---
Author Organization [facility] [employer] Address [address] [place] [address] Care Team Providers Care Mobile Paint Specialist Name Role Phone Ady Bautista MD Primary Care Provider Unavailabl e Source Comments [facility] [employer],non-owned Affiliates and Associated Physician Practices is amultiple site organization consisting of ambulatory clinics and hospital sitesin [place], [place], [place] and [place]. This disclosure is being madepursuant to the Care Everywhere program and may not contain all information available regarding this patient. Last updated 18.[facility] [employer] Allergies Active Allergy Reactions Criticality Noted Date Comments Diazepam Psychiatric 06/06/2013 Medications * Be aware that medications may not be up to date on this document. Alwaysverify current medications with the patient. Medication Sig Dispensed Refills Start Date End Date Status hydrochlorothiazide (MICROZIDE) 12.5 MG capsuleIndications:Meni ere syndrome Take 1 Cap by mouth once daily. 30 Cap 5 08/08/2013 Active Active Problems Problem Noted Date Diagnosed Date Cyst of breast 06/06/2013 Cyst, ovarian 06/06/2013 Benign paroxysmal positional vertigo 06/06/2013 Headache 06/06/2013 Overview (09/06/2015): Dizziness Head ache Insomnia Family History Relation Name Status Comments Father (Age 60) mva Mother Alive Social History Tobacco Use Types Packs/Day Years [...] Mass Index 31.01 08/08/2013 11:11 AM CDT Plan of Treatment Health Maintenance Due Date Last Done Comments COLOGUARD (AGES 45-75) - COL ON CA SCREENING 1978 COLON MONITORING 1978 COLONOSCOPY - COLON CA SCREENING 1978 CT COLONOGRAPHY - COLON CA SCREENING 1978 Colorectal Cancer Screening 1978 FIT - COLON CA SCREENING 1978 FLEX SIG - COLON CA SCREENING 1978 LIPID TESTING 1978 PAP SMEAR 1978 HIV SCREENING 1993 HEPATITIS C SCREENING 04/05/1996 DTAP/TDAP/TD VACCINES (1 - Tdap) 1997 HEPATITIS B VACCINE (1 of 3 - 19+ 3-dose series) 1997 PNEUMOCOCCAL VACCINE (1 of 2 - PCV) 1997 MAMMOGRAM 08/15/2015 08/15/2013 COVID-19 VACCINE ( - 2023-2 5 season) 2024 INFLUENZA VACCINE (#1) 2024 DEPRESSION SCREENING 10/30/2024 ZOSTER VACCINE (1 of 2) 2028 HIB VACCINE Aged Out No longer eligi ble based on patient's age to complete this topic HPV VACCINE Aged Out No longer eligi ble based on patient's age to complete this topic MENINGOCOCCAL (Group B) VACCINE Aged Out No longer eligible based on patient's age to complete this topic MENINGOCOCCAL VACCINE Aged Out No imani tess eligible based on patient's age to complete this topic Procedures Procedure Name Priority Date/Time Associated Diagnosis Comments MAMMO BILAT SCREENING Routine 08/15/2013 2:01 PM CDT Family history of breast cancer from Last 3 Months or Most Recently Relevant to Health Maintenance Results * SUSIE SCREENING DIGITAL IMAGE BILATERAL G0202 [...] Spot image left breast with possible sonogram. [facility] utilizes [employer] as a reminder system to notify patients [...] Spot image left breast with possible sonogram. [facility] utilizes [employer] as a reminder system to notify patients of their next recommended mammogram. Naldo Meraz MD MAMMO ORDERABLES from Last 3 Months or Most Recently Relevant to Health Maintenance Care Teams Mobile Paint Specialist Relationship Specialty Start Date End Date Ady Bautista MD PCP - General Internal Medicine 05/28/13
--- OUTSIDE RECORDS SUMMARY | 2024-11-29 07:59 | XMS_ITS | Referral Summary ---
Author Organization [facility] [employer] [place] Address [address] [place] [address] Care Team Providers Care Assembly Member Name Role Phone Ady Bautista MD Primary Care Provider Unavailabl e Source Comments [facility],non-owned Affiliates and Associated Physician Practices is amultiple site organization consisting of ambulatory clinics and hospital sitesin [place], [place], [place] and [place]. This disclosure is being madepursuant to the Care Everywhere program and may not contain all information available regarding this patient. Last updated 18.[facility] [employer] [place] Allergies Active Allergy Reactions Criticality Noted Date [...] 06/06/2013 Overview (09/06/2015): Dizziness Head ache Insomnia Social History Tobacco [...] 08/08/2013 11:11 AM CDT Plan of Treatment Not on file Procedures Procedure Name Priority Date/Time Associated Diagnosis [...] Spot image left breast with possible sonogram. [facility] [place] utilizes [employer] as a reminder system to notify patients [...] Spot image left breast with possible sonogram. [facility] [place] utilizes [employer] as a reminder system to notify patients of their next recommended mammogram. Naldo Meraz MD MAMMO ORDERABLES from Last 3 Months or Most Recently Relevant to Health Maintenance Care Teams Assembly Member Relationship Specialty Start Date End Date Ady Bautista MD PCP - General Internal Medicine 05/28/13
[2024-11-29 13:35] LABS: Basophils Absolute Auto 0.1 K/mm3 (0.0-0.1); Basophils Percent Auto 0.6 % (0.2-1.2); Eosinophils Absolute Auto 0.1 K/mm3 (0-0.3); Eosinophils Percent Auto 1.6 % (0-4.4); Hematocrit 45.1 % (37.0-47.0); Hemoglobin 14.9 g/dL (12.0-15.0); Immature Granulocyte Absolute 0.06 K/mm3 (0.00-0.031); Immature Granulocyte Percent A 0.7 % (0-0.5); Lymphocytes Absolute Auto 2.94 K/mm3 (0.9-3.2); Lymphocytes Percent Auto 32.8 % (18.3-44.2); Mean Corpuscular Volume 96.8 fl (80-100); Mean Platelet Volume 9.1 fl (7.4-10.4); Monocytes Absolute Auto 0.7 K/mm3 (0.1-0.6); Monocytes Percent Auto 7.5 % (2.6-8.5); Neutrophils Absolute Auto 5.1 K/mm3 (1.3-6.7); Neutrophils Percent Auto 56.8 % (45.5-73.1); Platelet Count Result 313 k/mm3 (150-375); Red Blood Count 4.66 M/mm3 (4.2-5.4); Red Cell Distribution Width 13.3 % (11.5-14.5)
[2024-11-29 13:39] LABS: Alanine Aminotransferase 88 U/L (6-35); Albumin Level 4.4 g/dL (3.5-5.1); Alkaline Phosphatase 108 U/L (38-126); Anion Gap 12 mmol/L (4-12); Aspartate Amino Transferase 62 U/L (14-36); Bilirubin,Total 0.7 mg/dL (0.2-1.3); Blood Urea Nitrogen 16 mg/dL (7-17); Calcium 9.6 mg/dL (8.4-10.2); Carbon Dioxide 24 mmol/L (22-30); Chloride 105 mmol/L (98-107); Cholesterol 260 mg/dL (0-200); Estimated Glomerular Filt Rate > 60; Glucose 144 mg/dL (65-110); HDL Direct 43 mg/dL; Potassium 4.7 mmol/L (3.4-5.0); Sodium 141 mmol/L (137-145); Triglycerides 372 mg/dL (<150); Uric Acid 8.4 mg/dL (2.5-7.5)
[2024-11-29 13:49] LABS: LDL Cholesterol Direct 170 mg/dL
[2024-11-29 14:17] LABS: Vitamin D 25 Hydroxy 26.9 ng/mL
== END 2024-11-29 07:55 | disposition home or self-care (01) ==
LOC: ANHGOSHLAB 07:55
PROVIDERS: PCP Nurse Practitioner; Visit Provider Nurse Practitioner
DX: F41.9 Anxiety disorder, unspecified (principal); E55.9 Vitamin D deficiency, unspecified; M10.9 Gout, unspecified; Z13.220 Encounter for screening for lipoid disorders
CPT/HCPCS: 36415; 80053; 80061; 82306; 84443; 84550; 85025

== ENCOUNTER 2024-12-06 08:06 | Outpatient (CLI) | payer BC, OTHER, SELFPAY ==
--- OUTSIDE RECORDS SUMMARY | 2024-12-06 08:11 | XMS_ITS | Referral Summary ---
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 Gender Identity Not on file Sexual Orientation Not on file Last Filed Vital Signs Vital Sign Reading Time Taken Comments Blood Pressure 122/78 04/22/2024 10:00 AM CDT Pulse 78 01/05/2024 9:00 AM SMALL WIND ENERGY INSTALLER Temperature 36.1 C (97 F) 05/21/2020 11:45 AM CDT Respiratory Rate - - Oxygen Saturation 98% 05/21/2020 11:45 AM CDT Inhaled Oxygen Concentration - - Weight 110.7 kg (244 lb) 04/22/2024 10:00 AM CDT Height 172.7 cm (5' 8 ) 04/22/2024 10:00 AM CDT Body Mass Index 37.1 04/22/2024 10:00 AM CDT Plan of Treatment Not on file Medical Devices Implanted Type Area Adventure Therapist Device Identifier Shelf Expiration Date Model / Serial / Lot [employer] Mammomark 8ga Bowtie Identifier Biopsy Site [id number] - [id number] Implanted:Qty: 1 on 01/05/2024 at [facility] Right: Breast [employer] [id number] 12/23/2024 [id number] / / [id number] Procedures Procedure Name Priority Date/Time Associated Diagnosis Comments HIGH RISK HPV DNA DETECTION WITH GENOTYPING Routine 04/22/2024 5:07 PM CDT Screening for cervical cancer SCREENING MAMMOGRAM BILATERAL W PREM Schedule Routine, Read Routine (OP Routine) 12/28/2023 3:57 PM SMALL WIND ENERGY INSTALLER Screening mammogram, encounter for from Last 3 Months or Most Recently Relevant to Health Maintenance Results * High Risk HPV DNA Detection with Genotyping (Molecular component) (04/22/2024 5:07 PM CDT) HPV HR 16 Not Detected Not Detected HPV HR 18 Not Detected Not Detected [facility] HPV HR Non 16/18 Not Detected Not Detected [facility] Comment: Interpretive Data Nucleic acid amplification for detection of high-risk Human Papilloma virus (HPV) is performed by the Lissa Mau 4800 HPV test, which specifically detects high-risk HPV-16, 18, 31, 33, 35, 39, 45, 51, 52, 56, 58, 59, 66, and 68 genotypes. This assay has been approved by the [place] Food and Drug Administration for detection of HPV in cervical specimens collected by a physician using an endocervical brush/spatula or cervical broom and placed in the ThinPrep Pap Test PreservCyt collection containers. The performance characteristics of this test have been verified by the [facility]. Correlate with separately reported cytology results, as applicable. Interpretive data last revised 23 Endocervical 04/22/2024 5:07 PM CDT 04/22/2024 10:06 PM CDT Narrative [facility] - 04/25/2024 8:17 PM CDT Clinical history and diagnosis->screening Testing type->Screening Last menstrual period (date if known)->IUD in placec Marcela Bell MD LAB BODY FLUIDS AND ST OOLS ORDERABLES Final Result [facility] [address] Department [place] [address] * (ABNORMAL) Screening Mammogram Bilateral W Prem (12/28/2023 3:57 PM SMALL WIND ENERGY INSTALLER) Anatomical Region Laterality Modality Breast Bilateral Mammography Narrative 12/28/2023 5:01 PM SMALL WIND ENERGY INSTALLER Examination: Screening Mammogram Bilateral W Prem: 12/28/23 [...] be notified of results by letter. Impression: BI-RADS ATLAS category (overall): 0 - Incomplete: Needs Additional Imaging Evaluation Magnification views is recommended. Overall Assessment: 0 - Incomplete: Needs Additional Imaging Evaluation us Self Screening Mammogram IMG MAMMO PROCEDURES Fi nal Result from Last 3 Months or Most Recently Relevant to Health Maintenance Insurance [facility] H[facility]/PPO Address: [address] [address] [facility] HMO/PPO Address: [id number] [place] [address] ANTHEM ACCESS CHOICE [facility] H[facility]/PPO Address: [id number] [place] [address] ANTHEM ACCESS CHOICE Care Teams Consumer Attorney Relationship Specialty Start Date End Date Ady Bautista MD PCP - General 06/19/20
--- OUTSIDE RECORDS SUMMARY | 2024-12-06 08:11 | XMS_ITS | Clinical Summary ---
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
--- OUTSIDE RECORDS SUMMARY | 2024-12-06 08:11 | XMS_ITS | Referral Summary ---
Author Organization [facility] Address [address] [place] [address] Care Team Providers Care Agency Sales Representative Name Role Phone Ady Bautista MD Primary Care Provider Unavailabl e Source Comments [facility],non-owned Affiliates and Associated Physician Practices is amultiple site organization consisting of ambulatory clinics and hospital sitesin [place], [place], [place] and [place]. This disclosure is being madepursuant to the Care Everywhere program and may not contain all information available regarding this patient. Last updated 18.[facility] Allergies Active Allergy Reactions Criticality Noted Date [...] 72 08/08/2013 11:11 AM CDT Temperature 37.1 C (98.7 F) 07/15/2013 2:48 PM CDT Respiratory Rate 16 06/06/2013 3:17 PM CDT [...] Spot image left breast with possible sonogram. [facility] [place] utilizes [employer] as a reminder system to notify patients [...] Spot image left breast with possible sonogram. [facility] [place] utilizes [employer] as a reminder system to notify patients of their next recommended mammogram. Naldo Meraz MD MAMMO ORDERABLES from Last 3 Months or Most Recently Relevant to Health Maintenance Care Teams Agency Sales Representative Relationship Specialty Start Date End Date Ady Bautista MD PCP - General Internal Medicine 05/28/13
--- OUTSIDE RECORDS SUMMARY | 2024-12-06 08:11 | XMS_ITS | Encounter Summary ---
Author Organization [facility] Address [address] [place] [address] Phone Care Team Providers Care Stone Product Fabricator Name Role Phone No, Physician Primary Care Provider [phone] Ady Bautista MD Primary Care Provider [phone] Encounter Details Date Type Department Care Team (Late st Contact Info) Description 01/11/2018 Orders Only [facility] ProviderAntonio MD [address] [place] [phone] Social History Tobacco Use Types Packs/Day Years Used Date Smoking Tobacco: Never Assessed Comments Unknown Sex and Gender Information Value Date Recorded Sex Assigned at Not on file 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
--- OUTSIDE RECORDS SUMMARY | 2024-12-06 08:11 | XMS_ITS | Clinical Summary ---
Author Organization [facility] [employer] Address [address] [place] [address] Care Team Providers Care Awning Craftsperson Name Role Phone Ady Bautista MD Primary Care Provider Unavailabl e Source Comments [facility] [employer],non-owned Affiliates and Associated Physician Practices is amultiple site organization consisting of ambulatory clinics and hospital sitesin [place], [place], [place] and [place]. This disclosure is being madepursuant to the Care Everywhere program and may not contain all information available regarding this patient. Last updated 18.[facility] [employer] Allergies Active Allergy Reactions Criticality Noted Date [...] PCV) 1997 MAMMOGRAM 08/15/2015 08/15/2013 COVID-19 VACCINE (1 - 2023-2 5 season) 2024 INFLUENZA VACCINE [...] Spot image left breast with possible sonogram. [facility] Breast [facility] utilizes [employer] as a reminder system to notify patients [...] Spot image left breast with possible sonogram. [facility] utilizes [employer] as a reminder system to notify patients of their next recommended mammogram. Naldo Meraz MD MAMMO ORDERABLES from Last 3 Months or Most Recently Relevant to Health Maintenance Care Teams Awning Craftsperson Relationship Specialty Start Date End Date Ady Bautista MD PCP - General Internal Medicine 05/28/13
--- OUTSIDE RECORDS SUMMARY | 2024-12-06 08:11 | XMS_ITS | Clinical Summary ---
Author Organization [facility] Address [address] [place] [address] Care Team Providers Care Crop Grain Or Livestock Farmer Name Role Phone Ady Bautista MD Primary Care Provider [phone] Allergies Active Allergy Reactions Criticality Noted Date [...] on file Legal Sex Female 9:10 AM SITE LEAD Gender Identity Not on file Sexual Orientation [...] AM CDT Pulse 78 01/05/2024 9:00 AM SITE LEAD Temperature 36.1 C (97 F) 05/21/2020 11:45 [...] 1989 Hepatitis B Screening 1996 Covid-19 Vaccine ( season) 2024 10/06/2021 Influenza Vaccine (#1) 2024 [...] this topic Medical Devices Implanted Type Area Housing Management Representative Device Identifier Shelf Expiration Date Model / Serial / Lot [employer] Mammomark 8ga Bowtie Identifier Biopsy Site [id number] - [id number] Implanted:Qty: 1 on 01/05/2024 at [facility] Right: Breast [employer] [id number] 12/23/2024 [id number] / / [id number] Procedures Procedure Name Priority Date/Time Associated Diagnosis Comments HIGH RISK HPV DNA DETECTION WITH GENOTYPING Routine 04/22/2024 5:07 PM CDT Screening for cervical cancer SCREENING MAMMOGRAM BILATERAL W PREM Schedule Routine, Read Routine (OP Routine) 12/28/2023 3:57 PM SITE LEAD Screening mammogram, encounter for from Last 3 Months or Most Recently Relevant to Health Maintenance Results * High Risk HPV DNA Detection with Genotyping (Molecular component) (04/22/2024 5:07 PM CDT) HPV HR 16 Not Detected Not Detected HPV HR 18 Not Detected Not Detected [facility] HPV HR Non 16/18 Not Detected Not Detected [facility] Comment: Interpretive Data Nucleic acid amplification for [...] this test have been verified by the [facility]. Correlate with separately reported cytology results, as applicable. Interpretive data last revised 23 Endocervical 04/22/2024 5:07 PM CDT 04/22/2024 10:06 PM CDT Narrative [facility] - 04/25/2024 8:17 PM CDT Clinical history and diagnosis->screening Testing type->Screening Last menstrual period (date if known)->IUD in placec Marcela Bell MD LAB BODY FLUIDS AND ST OOLS ORDERABLES Final Result [facility] [address] [place] [address] * (ABNORMAL) Screening Mammogram Bilateral W Prem (12/28/2023 3:57 PM SITE LEAD) Anatomical Region Laterality Modality Breast Bilateral Mammography Narrative 12/28/2023 5:01 PM SITE LEAD Examination: Screening Mammogram Bilateral W Prem: 12/28/23 [...] Most Recently Relevant to Health Maintenance Insurance [facility] ANTHEM ACCESS CHOICE [facility] ACCESS CHOICE Care Teams Crop Grain Or Livestock Farmer Relationship Specialty Start Date End Date Ady Bautista MD PCP - General 06/19/20
--- OUTSIDE RECORDS SUMMARY | 2024-12-06 08:12 | XMS_ITS | Patient Health Summary ---
Author Organization [facility] Address [address] [place] [address] Care Team Providers Care Front Desk Administrator Name Role Phone Ady Bautista MD Primary Care Provider Unavailabl e Note from Formerly named [facility],non-owned Affiliates and Associated Physician Practices is amultiple site organization consisting of ambulatory clinics and hospital sitesin [place], [place], [place] and [place]. This disclosure is being madepursuant to the Care Everywhere program and may not contain all information available regarding this patient. Last updated 18.[facility] Allergies * Diazepam(Psychiatric) Medications * Be aware [...] clinical suspicion remains high for breast pathology. [facility] utilizes [email or web address] as a reminder system to notify patients [...] clinical suspicion remains high for breast pathology. [facility] utilizes [email or web address] as a reminder system to notify patients of their next recommended mammogram. Naldo Meraz MD US ORDERABLES * SUSIE DIAG DIRECT DIG IMAGE UNI LEFT [id number] (08/30/2013 10:23 AM CDT) Anatomical Region Laterality [...] clinical suspicion remains high for breast pathology. [facility] utilizes [email or web address] as a reminder system to notify patients [...] clinical suspicion remains high for breast pathology. [facility] utilizes [email or web address] as a reminder system to notify patients [...] - 9.0 IU/mL 08/17/2013 7:02 AM CDT D[facility]ion Blood specimen (specimen) BLOOD SPECIMEN / Unknown Venipuncture / Unknown 08/15/2013 2:55 PM CDT 08/15/2013 3:39 PM CDT Naldo Meraz MD LAB - CHEMISTRY ORD ERABLES [facility] [employer] [address] [place] [address] * YAQUELIN BLOOD SCREEN W/REFLEX TITER (08/15/2013 2:54 PM CDT) YAQUELIN Negative Negative 08/16/2013 11:[address] [facility] Blood BLOOD SPECIMEN / Unknown Venipuncture / Unknown 08/15/2013 2:54 PM CDT 08/15/2013 3:39 PM CDT Naldo Meraz MD LAB - CHEMISTRY ORD ERABLES Performing Organization Address City/[facility]/ZIP Co de Phone Number [facility] [address] [place] [address] * FOLATE (08/15/2013 2:54 PM CDT) Pathologist [facility] Folate 15.8 3.1 - 17.5 ng/mL 08/15/2013 4:[address] [facility] Blood BLOOD SPECIMEN / Unknown Venipuncture / Unknown 08/15/2013 2:54 PM CDT 08/15/2013 3:39 PM CDT Naldo Meraz MD LAB - CHEMISTRY ORD ERABLES [facility] [address] [place] [address] * VITAMIN B12 (08/15/2013 2:54 PM CDT) Pathologist [facility] Vitamin B12 348 211 - 911 pg/mL 08/15/2013 4:[address] [facility] Blood BLOOD SPECIMEN / Unknown Venipuncture / Unknown 08/15/2013 2:54 PM CDT 08/15/2013 3:39 PM CDT Naldo Meraz MD LAB - CHEMISTRY ORD ERABLES [facility] [address] [place] [address] * T3 FREE (08/15/2013 2:53 PM CDT) Pathologist [facility] T3 Free 3.02 2.18 - 3.98 pg/mL 08/15/2013 4:[address] [facility] Comment: Blood BLOOD SPECIMEN / Unknown Venipuncture / Unknown 08/15/2013 2:53 PM CDT 08/15/2013 3:39 PM CDT Naldo Meraz MD LAB - CHEMISTRY ORD ERABLES Performing Organization Address City/[facility] Co de Phone Number [facility] [address] [place] [address] * HEMOGLOBIN A1C (08/15/2013 2:53 PM CDT) [facility] Hemoglobin A1c 5.1 4.2 - 6.3 % 08/15/2013 4:[address] [facility] Estimated Average Glucose 100 mg/dL 08/15/2013 4:[address] [facility] Whole Blood BLOOD SPECIMEN WITH EDTA / Unknown Venipuncture / Unknown 08/15/2013 2:53 PM CDT 08/15/2013 3:39 PM CDT Naldo Meraz MD LAB - CHEMISTRY ORD ERABLES Performing Organization Address City/[facility]/ZIP Co de Phone Number [facility] [address] [place] [address] * LIPASE BLOOD (08/15/2013 2:53 PM CDT) [facility] Lipase 182 73 - 393 U/L 08/15/2013 4:[address] [facility] Comment: Blood BLOOD SPECIMEN / Unknown Venipuncture / Unknown 08/15/2013 2:53 PM CDT 08/15/2013 3:39 PM CDT Naldo Meraz MD LAB - CHEMISTRY ORD ERABLES Performing Organization Address City/[facility]/ZIP Co de Phone Number [facility] [address] [place] [address] * AMYLASE BLOOD (08/15/2013 2:53 PM CDT) Amylase 43 15 - 115 U/L 08/15/2013 4:[address] [facility] Comment: Blood BLOOD SPECIMEN / Unknown Venipuncture / Unknown 08/15/2013 2:53 PM CDT 08/15/2013 3:39 PM CDT Naldo Meraz MD LAB - CHEMISTRY ORD ERABLES [facility] [address] [place] [address] * TSH (08/15/2013 2:53 PM CDT) Pathologist [facility] TSH 1.70 0.358 - 3.740 uIU/mL 08/15/2013 4:[address] [facility] Comment: Blood BLOOD SPECIMEN / Unknown Venipuncture / Unknown 08/15/2013 2:53 PM CDT 08/15/2013 3:39 PM CDT Naldo Meraz MD LAB - CHEMISTRY ORD ERABLES Performing Organization Address City/[facility] Co de Phone Number [facility] [address] [place] [address] * T4 FREE (08/15/2013 2:53 PM CDT) Pathologist [facility] T4 Free 0.94 0.65 - 1.34 ng/dL 08/15/2013 4:[address] [facility] Comment: Blood BLOOD SPECIMEN / Unknown Venipuncture / Unknown 08/15/2013 2:53 PM CDT 08/15/2013 3:39 PM CDT Naldo Meraz MD LAB - CHEMISTRY ORD ERABLES Performing Organization Address City/[facility] Co de Phone Number [facility] [address] [place] [address] * SUSIE SCREENING DIGITAL IMAGE BILATERAL G0202 [...] Spot image left breast with possible sonogram. [facility] utilizes [email or web address] as a reminder system to notify patients [...] Spot image left breast with possible sonogram. [facility] utilizes [email or web address] as a reminder system to notify patients [...] ORDERABLES * MRA ANGIO NECK NON CONTRAST [[id number]] (06/13/2013 3:13 PM CDT) Anatomical Region Laterality Modality Head Magnetic Resonan ce 06/13/2013 3:58 PM CDT Impressions 06/13/2013 3:58 PM CDT Normal MRA of neck Narrative 06/13/2013 3:58 PM CDT MRA neck INDICATION: Dizziness and headaches TECHNIQUE: 2-D and 3-D [id number] images were obtained through the carotid bifurcations. [...] Dizziness and headaches TECHNIQUE: 2-D and 3-D [id number]-zk-eqptyr images were obtained through the carotid bifurcations. [...] Contrast INDICATION: Dizziness and headache TECHNIQUE: MRA [id number] of the head without contrast. 3D/MIP reconstructions performed on independent workstation. FINDINGS: The major intracranial vessels are patent and no aneurysm is seen. Procedure Note Godfrey Arzate MD - 06/13/2013 MRA Head Without Contrast INDICATION: Dizziness and headache TECHNIQUE: MRA dtlu-[id number]-hoadfv of the head without contrast. 3D/MIP reconstructions performed on independent workstation. FINDINGS: The major intracranial vessels are patent and no aneurysm is seen. IMPRESSION No large vessel occlusion or aneurysm. Naldo Meraz MD MR ORDERABLES Care Teams Front Desk Administrator Relationship Specialty Start Date End Date Ady Bautista MD PCP - General Internal Medicine 05/28/13
[2024-12-06 14:55] LABS: Hemoglobin A1C 7.4 % (<5.7)
== END 2024-12-06 08:07 | disposition home or self-care (01) ==
LOC: ANHGOSHLAB 08:08
PROVIDERS: PCP Nurse Practitioner; Visit Provider Nurse Practitioner
DX: R73.9 Hyperglycemia, unspecified (principal)
CPT/HCPCS: 36415; 83036

== ENCOUNTER 2025-02-02 02:51 | Day surgery (SDC) | payer BC, OTHER, SELFPAY ==
[2025-02-02] VITALS (11 sets, daily range): BP systolic 121–169; BP diastolic 63–106; PULSE 72–107; RESP 16–20; TEMP 36.4–36.9; O2SAT 94–100
--- NOTE | ~2025-02-02 | XR_ITS ---
XR abdomen/kub 1V Ordering provider: Claude Dalton MD History: . obstructing stones . Comparison: None. FINDINGS: BOWEL: Nonobstructive bowel gas pattern. ORGANOMEGALY: Status post cholecystectomy. No SIGNIFICANT PATHOLOGIC CALCIFICATIONS: Stone in the right upper quadrant most likely kidney stone. Ur eteric Stone is also seen opposite the left transverse process of L3. OTHER: No free air is seen under the diaphragm. IMPRESSION: NO ACUTE ABDOMINAL FINDINGS. Left mid ureteric and right kidney stones. Noncontrast CT is better for evaluation. Reviewed, dictated and finalized at location A. IMPRESSION: NO ACUTE ABDOMINAL FINDINGS. Left mid ureteric and right kidney stones. Noncontrast CT is better for evaluat ion.
--- NOTE | ~2025-02-02 | XR_ITS ---
INTRAOPERATIVE FLUOROSCOPY: CLINICAL HISTORY: 44 years old Female; cysto, BILAT STENT PROCEDURE COMMENTS: Limited intraoperative fluoroscopy of the retroperitoneum was performed. CUMULATIVE DOSE: 35 mGy FLUOROSCOPY TIME: 55.3 seconds FINDINGS/IMPRESSION: Please refer to operative note for further details. Reviewed, dictated and finalized at location A.
--- NOTE | ~2025-02-02 | CT_ITS ---
CT abdomen pelvis wo con Ordering provider: Claude Dalton MD History: 44 years Female with . flank pain . Comparison: None. Technique: CT abdomen and pelvis without IV and without oral contrast. Automated exposure control and iterative reconstruction technique were employed. The dose-length product was 1428.84 mGy-cm. Findings: VISUALIZED LOWER CHEST: Dependent atelectatic changes. UPPER ABDOMINAL ORGANS: Liver: Fat infiltration. Hepatomegaly. Gallbladder: Status post cholecystectomy. Slightly dilated CBD measuring 1.3 cm. Spleen: Normal. Stomach/duodenum: Normal. Pancreas: Normal. Adrenals: Normal. Kidneys: Stone in the right upper ureter measuring 6 mm with right moderate hydronephrotic changes. Stone in the left upper ureter is noted measuring 9 mm. With severe right hydronephrotic changes. Tiny stones in the left kidney lower pole. Large stone in the right kidney upper pole measuring 1 cm. Other smaller stones are seen in the right kidney mid and lower pole. PELVIC ORGANS: The bladder is underfilled with slightly thickened wall. Evaluation for cystitis advis ed.. IUD is seen in the uterus. BOWEL AND MESENTERY: Colon: No evidence of diverticulitis.. No evidence of appendicitis. Small Bowel: Normal. No obstruction. Peritoneum/mesentery: No free air or free fluid. No mesenteric lymphadenopathy. RETROPERITONEUM: normal aorta. No retroperitoneal lymphadenopathy. MUSCULOSKELETAL: Superficial soft tissues: The superficial soft tissues are normal. Bones: Age appropriate degenerative changes of the spine. IMPRESSION: 1. Bilateral ureteric stones with hydronephrotic changes. Bilateral kidney stones. 2. Hepatomegaly with fat infiltration. 3. No evidence of appendicitis, diverticulitis or intestinal obstruction. Reviewed, dictated and finalized at location A. IMPRESSION: 1. Bilateral ureteric stones with hydronephrotic changes. Bilateral kidney sto emy. 2. Hepatomegaly with fat infiltration. 3. No evidence of appendicitis, diverticulitis or intestinal obstruction.
--- OUTSIDE RECORDS SUMMARY | 2025-02-02 02:54 | XMS_ITS | Clinical Summary ---
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
--- OUTSIDE RECORDS SUMMARY | 2025-02-02 02:54 | XMS_ITS | Clinical Summary ---
Author Organization [facility] Address [address] [place] [place] [address] Care Team Providers Care Foot Cutter Name Role Phone Ady Bautista MD Primary Care Provider Unavailabl e Source Comments [facility],non-owned Affiliates and Associated Physician Practices is amultiple site organization consisting of ambulatory clinics and hospital sitesin [place], [place], [place] and [place]. This disclosure is being madepursuant to the Care Everywhere program and may not contain all information available regarding this patient. Last updated 18.[facility] Allergies Active Allergy Reactions Criticality Noted Date [...] VACCINE ( - 2023-2 5 season) 2024 DEPRESSION SCREENING 10/30/2024 INFLUENZA VACCINE (Season Ended) 2025 ZOSTER VACCINE (1 of 2) 2028 HIB VACCINE Aged Out No longer eligi ble based on patient's age to complete this topic HPV VACCINE Aged Out No longer eligi ble based on patient's age to complete this topic MENINGOCOCCAL (Group B) VACC INE SHARED DECISION-MAKING Aged Out No longer eligibl e based on patient's age to complete this topic MENINGOCOCCAL GROUPS A/C/Y/W VACCINE Aged Out No longer eligible b ased on patient's age to complete this topic Procedures Procedure Name Priority Date/Time Associated Diagnosis Comments MAMMO BILAT SCREENING Routine 08/15/2013 2:01 PM CDT Family history of breast cancer from Last 3 Months or Most Recently Relevant to Health Maintenance Results * SUSIE SCREENING DIGITAL IMAGE BILATERAL G0202 (08/15/2013 2:01 PM CDT) Anatomical Region Laterality Modality Breast Bilateral Mammography 08/21/2013 2:2 9 PM CDT Narrative 08/21/2013 2:30 PM CDT [...] Spot image left breast with possible sonogram. [facility] utilizes [employer] as a reminder system to notify patients [...] Spot image left breast with possible sonogram. [facility] utilizes [employer] as a reminder system to notify patients of their next recommended mammogram. Naldo Meraz MD MAMMO ORDERABLES from Last 3 Months or Most Recently Relevant to Health Maintenance Care Teams Foot Cutter Relationship Specialty Start Date End Date Ady Bautista MD PCP - General Internal Medicine 05/28/13
--- OUTSIDE RECORDS SUMMARY | 2025-02-02 02:54 | XMS_ITS | Clinical Summary ---
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 Gender Identity Not on file Sexual Orientation [...] AM CDT Pulse 78 01/05/2024 9:00 AM CONCRETE PRODUCTS MACHINE OPERATOR Temperature 36.1 C (97 F) 05/21/2020 11:45 [...] B Screening 1996 Covid-19 Vaccine (2 - 2024-25 season) 2024 10/06/2021 Influenza Vaccine (#1) 2024 [...] this topic Medical Devices Implanted Type Area Bookmobile Clerk Device Identifier Shelf Expiration Date Model / Serial / Lot [employer] Mammomark 8ga Bowtie Identifier Biopsy Site [id number] - [id number] Implanted:Qty: 1 on 01/05/2024 at [facility] Right: Breast Devicor [employer] [id number] 12/23/2024 [id number] / / [id number] Procedures Procedure Name Priority Date/Time Associated Diagnosis Comments HIGH RISK HPV DNA DETECTION WITH GENOTYPING Routine 04/22/2024 5:07 PM CDT Screening for cervical cancer SCREENING MAMMOGRAM BILATERAL W PREM Schedule Routine, Read Routine (OP Routine) 12/28/2023 3:57 PM CONCRETE PRODUCTS MACHINE OPERATOR Screening mammogram, encounter for from Last 3 Months or Most Recently Relevant to Health Maintenance Results * High Risk HPV DNA Detection with Genotyping (Molecular component) (04/22/2024 5:07 PM CDT) HPV HR 16 Not Detected Not Detected HPV HR [address] [facility] HPV HR Non 16/[address] [facility] Comment: Interpretive Data Nucleic acid amplification for [...] test have been verified by the [facility]. Correlate with separately reported cytology results, as applicable. Interpretive data last revised 23 Endocervical 04/22/2024 5:07 PM CDT 04/22/2024 10:06 PM CDT Narrative [facility] - 04/25/2024 8:17 PM CDT Clinical history and diagnosis->screening Testing type->Screening Last menstrual period (date if known)->IUD in placec Marcela Bell MD LAB BODY FLUIDS AND ST OOLS ORDERABLES Final Result [facility] [address] [place] [address] * (ABNORMAL) Screening Mammogram Bilateral W Prem (12/28/2023 3:57 PM CONCRETE PRODUCTS MACHINE OPERATOR) Anatomical Region Laterality Modality Breast Bilateral Mammography Narrative 12/28/2023 5:01 PM CONCRETE PRODUCTS MACHINE OPERATOR Examination: Screening Mammogram Bilateral W Prem: 12/28/23 [...] Most Recently Relevant to Health Maintenance Insurance [facility] HMO/PPO Address: [place] [address] [facility] HMO/PPO Address: [place] [address] ANTHEM ACCESS CHOICE [facility] HMO/PPO Address: [facility] [address] [place] [address] [facility] ACCESS CHOICE Care Teams Credit Card Clerk Relationship Specialty Start Date End Date Ady Bautista MD PCP - General 06/19/20
--- OUTSIDE RECORDS SUMMARY | 2025-02-02 02:54 | XMS_ITS | Clinical Summary ---
Author Organization [facility] Address [address] [place] [address] Phone Care Team Providers Care Environment Friendly Landscape Designer Name Role Phone Ady Bautista MD Primary Care Provider [phone] Allergies Active Allergy Reactions Criticality Noted Date Comments Oxycodone Nausea and Vomiting,Confusion Medium 2015 Medications LEVONORGESTREL (MIRENA INTRAUTERINE)In dications:Lump or mass in breast by Intrauterine route. Active oxyCODONE-aceta minophen (PERCOCET) 5-325 mg tablet Take 1 Tablet by mouth every 6 hours as needed for Pain, Moderate. Max Daily Amount: 4 Tablet 20 Tablet 0 6 Active HYDROcodone-prerna taminophen (NORCO) 5-325 mg tablet Take 1 Tablet by mouth every 6 hours as needed for Pain, Moderate. Max Daily Amount: 4 Tablet 20 Tablet 0 6 Active Active Problems Patient Care Coordination No te Formatting of this note migh t be different from the original. Primary Care: Ady Bautista MD Referring Provider: Ady Bautista MD [address] [place] [address] Other: Problem Noted Date Diagnosed Date Fibrocystic changes of right breast 02/29/2016 Abnormal ultrasound of breast 01/15/2016 Lump of right breast 01/12/2016 Breast pain 08/23/2011 Lump or mass in breast 06/14/2010 Ovarian cyst Immunizations Immunization Administration Dates Next Due Influenza Seasonal Unspecified Formulation IM Family History Medical History Relation Name Comments Cancer Father luekemia Cancer Maternal Grandfather Ovarian Cancer Maternal Grandmother Ovarian Cancer Mother Breast Cancer Paternal Grandmother Relation Name Status Comments Father Maternal Grandfather Maternal Grandmother Mother Paternal Grandmother Social History Tobacco Use Types Packs/Day Years Used Date Smoking Tobacco: Former Cigarettes Q uit: 01/14/2009 Smokeless Tobacco: Never Comments:5yrs ago Alcohol Use Standard Drinks/Week Comments Yes 3 (1 standard drink = 0.6 oz pur e alcohol) moderate Comments No Sex and Gender Information Value Date Recorded Sex Assigned at Not on file Legal Sex Female 5:55 AM 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 Gender Identity Not on file Sexual Orientation Not on file Last Filed Vital Signs Vital Sign Reading Time Taken Comments Blood Pressure 110/80 02/29/2016 10:56 AM CDT Pulse 68 02/18/2016 10:41 AM CDT Temperature 37.3 C (99.2 F) 02/18/2016 1:22 PM CDT Respiratory Rate 16 02/18/2016 1:49 PM CDT Oxygen Saturation 100% 02/18/2016 1:49 PM CDT Inhaled Oxygen Concentration - - Weight 102.1 kg (225 lb) 02/29/2016 10:56 AM CDT Height 175.3 cm (5' 9 ) 02/11/2016 3:03 PM CDT Body Mass Index 33.23 02/11/2016 3:03 PM CDT Plan of Treatment Health Maintenance Due Date Last Done Comments DTAP/TDAP/TD VACCINES (1 - Tdap) 1997 HEPATITIS B VACCINES (1 of 3 - 19+ 3-dose series) 1997 HPV/Cotest (21-29) 1999 PAP SMEAR 1999 CERVICAL CANCER SCREENING 2008 HPV/Cotest (30-65) 2008 PAP SMEAR 2008 BREAST CANCER SCREENING 2018 01/05/20 16, 06/09/2010 COLORECTAL SCREENING 2023 Colorectal Cancer Screening 2023 FIT-DNA Q 3 years 2023 FIT/FOBT Q 1 year 2023 Flex Sig/CT Colonography Q 5 years 2023 INFLUENZA VACCINE (#1) 2024 08/12/2015 HPV VACCINES Aged Out No longer eligi ble based on patient's age to complete this topic PNEUMOCOCCAL VACCINE 0-49 YEARS Aged Out No longer eligible b ased on patient's age to complete this topic Procedures Procedure Name Priority Date/Time Associated Diagnosis Comments MAMMO 3D PREM DIAGNOSTIC ARTI AT W OR WO CAD Routine 01/05/2016 from Last 3 Months or Most Recently Relevant to Health Maintenance Results * MAMMO DIG DIAG BILAT W 3D PREM (01/05/2016) Anatomical Region Laterality Modality Breast Bilateral Other us Kari Kraus MD MAMMO ORDERABLES Edited Result - Final from Last 3 Months or Most Recently Relevant to Health Maintenance Insurance [facility] OPTIONS PPO [id number] Advance Directives For more information, please contact: [phone] * Full Code (Latest Code Status on File) Date Activated Date Inactivated Comments 02/18/2016 10:51 AM 02/18/2016 4:08 PM * Full Code Date Activated Date Inactivated Comments 02/18/2016 10:48 AM 02/18/2016 10:51 AM Care Teams Environment Friendly Landscape Designer Relationship Specialty Start Date End Date Ady Bautista MD [address] [place] [address] PCP - General Internal Medicine 01/15/16
--- OUTSIDE RECORDS SUMMARY | 2025-02-02 02:54 | XMS_ITS | Encounter Summary ---
Author Organization [facility] Address [address] [place] [address] Phone Care Team Providers Care Split Leather Department Supervisor Name Role Phone No, Physician Primary Care Provider [phone] Ady Bautista MD Primary Care Provider [phone] Encounter Details Date Type Department Care Team (Late st Contact Info) Description 01/11/2018 Orders Only [facility] ProviderAntonio MD [address] [place] [address] Social History Tobacco Use Types Packs/Day Years Used Date Smoking Tobacco: Never Assessed Comments Unknown Sex and Gender Information Value Date Recorded Sex Assigned at Not on file Legal Sex Female 9:10 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
--- OUTSIDE RECORDS SUMMARY | 2025-02-02 02:54 | XMS_ITS | Referral Summary ---
Author Organization [facility] Address [address] [place] [address] Care Team Providers Care Senior Licensing Manager Name Role Phone Ady Bautista MD Primary Care Provider [phone] Allergies Active Allergy Reactions Criticality Noted Date [...] on file Legal Sex Female 9:10 AM EDM OPERATOR Gender Identity Not on file Sexual Orientation Not on file Last Filed Vital Signs Vital Sign Reading Time Taken Comments Blood Pressure 122/78 04/22/2024 10:00 AM CDT Pulse 78 01/05/2024 9:00 AM EDM OPERATOR Temperature 36.1 C (97 F) 05/21/2020 [...] on file Medical Devices Implanted Type Area Associate Drafter Device Identifier Shelf Expiration Date Model / Serial / Lot [employer] Mammomark 8ga Bowtie Identifier Biopsy Site [id number] - [id number] Implanted:Qty: 1 on 01/05/[address] [facility] Right: Breast [employer] [id number] 12/23/2024 [id number] / / [id number] Procedures Procedure Name Priority Date/Time Associated Diagnosis Comments HIGH RISK HPV DNA DETECTION WITH GENOTYPING Routine 04/22/2024 5:07 PM CDT Screening for cervical cancer SCREENING MAMMOGRAM BILATERAL W PREM Schedule Routine, Read Routine (OP Routine) 12/28/2023 3:57 PM EDM OPERATOR Screening mammogram, encounter for from Last 3 Months or Most Recently Relevant to Health Maintenance Results * High Risk HPV DNA Detection with Genotyping (Molecular component) (04/22/2024 5:07 PM CDT) HPV HR 16 Not Detected Not Detected HPV HR 18 Not Detected Not Detected [facility] HPV HR Non 16/18 Not Detected Not Detected [facility] Comment: Interpretive Data Nucleic acid [...] test have been verified by the [facility]. Correlate with separately reported cytology results, as applicable. Interpretive data last revised 23 Endocervical 04/22/2024 5:07 PM CDT 04/22/2024 10:06 PM CDT Narrative [facility] - 04/25/2024 8:17 PM CDT Clinical history and diagnosis->screening Testing type->Screening Last menstrual period (date if known)->IUD in placec Marcela Bell MD LAB BODY FLUIDS AND ST OOLS ORDERABLES Final Result [facility] [address] [place] [address] * (ABNORMAL) Screening Mammogram Bilateral W Prem (12/28/2023 3:57 PM EDM OPERATOR) Anatomical Region Laterality Modality Breast Bilateral Mammography Narrative 12/28/2023 5:01 PM EDM OPERATOR Examination: Screening Mammogram Bilateral W Prem: [...] Most Recently Relevant to Health Maintenance Insurance [facility] AN[facility]M ACCESS CHOICE [facility] AN[facility]M ACCESS CHOICE Care Teams Senior Licensing Manager Relationship Specialty Start Date End Date Ady Bautista MD PCP - General 06/19/20
--- OUTSIDE RECORDS SUMMARY | 2025-02-02 07:18 | XMS_ITS | Clinical Summary ---
Author Organization [facility] Address [address] [place] [address] Care Team Providers Care Education Professional Name Role Phone Ady Bautista MD Primary Care Provider [phone] Allergies Active Allergy Reactions Criticality Noted Date [...] on file Legal Sex Female 9:10 AM HELICOPTER OFFICER Gender Identity Not on file Sexual Orientation [...] AM CDT Pulse 78 01/05/2024 9:00 AM HELICOPTER OFFICER Temperature 36.1 C (97 F) 05/21/2020 11:45 [...] this topic Medical Devices Implanted Type Area Service Officer Device Identifier Shelf Expiration Date Model / Serial / Lot [employer] Mammomark 8ga Bowtie Identifier Biopsy Site [id number] - [id number] Implanted:Qty: 1 on 01/05/2024 at [facility] Right: Breast [employer] [id number] 12/23/2024 [id number] / / [id number] Procedures Procedure Name Priority Date/Time Associated Diagnosis Comments HIGH RISK HPV DNA DETECTION WITH GENOTYPING Routine 04/22/2024 5:07 PM CDT Screening for cervical cancer SCREENING MAMMOGRAM BILATERAL W PREM Schedule Routine, Read Routine (OP Routine) 12/28/2023 3:57 PM HELICOPTER OFFICER Screening mammogram, encounter for from Last 3 Months or Most Recently Relevant to Health Maintenance Results * High Risk HPV DNA Detection with Genotyping (Molecular component) (04/22/2024 5:07 PM CDT) HPV HR 16 Not Detected Not Detected HPV HR 18 Not Detected Not Detected [facility] HPV HR Non 16/18 Not Detected Not Detected [facility] Comment: Interpretive Data Nucleic acid amplification for [...] this test have been verified by the [facility]. Correlate with separately reported cytology results, as applicable. Interpretive data last revised 23 Endocervical 04/22/2024 5:07 PM CDT 04/22/2024 10:06 PM CDT Narrative [facility] - 04/25/2024 8:17 PM CDT Clinical history and diagnosis->screening Testing type->Screening Last menstrual period (date if known)->IUD in placec Marcela Bell MD LAB BODY FLUIDS AND ST OOLS ORDERABLES Final Result [facility] [address] Department [place] [address] * (ABNORMAL) Screening Mammogram Bilateral W Prem (12/28/2023 3:57 PM HELICOPTER OFFICER) Anatomical Region Laterality Modality Breast Bilateral Mammography Narrative 12/28/2023 5:01 PM HELICOPTER OFFICER Examination: Screening Mammogram Bilateral W Prem: 12/28/23 [...] Most Recently Relevant to Health Maintenance Insurance [facility] ANTHEM ACCESS CHOICE [facility] ACCESS CHOICE Care Teams Education Professional Relationship Specialty Start Date End Date Ady Bautista MD PCP - General 06/19/20
--- OUTSIDE RECORDS SUMMARY | 2025-02-02 07:18 | XMS_ITS | Clinical Summary ---
Author Organization [facility] Address [address] [place] [address] Care Team Providers Care Criminal Attorney Name Role Phone Unavailable Primary Care Provider Unavailabl e Social History Tobacco Use Types Packs/Day Years Used Date Smoking Tobacco: Never Assessed Comments Unknown Sex and Gender Information Value Date Recorded Sex Assigned at Not on file Legal Sex Female 1:24 PM COLD ROLLING MACHINE SETTER Gender Identity Not on file Sexual Orientation [...]
--- OUTSIDE RECORDS SUMMARY | 2025-02-02 07:18 | XMS_ITS | Referral Summary ---
Author Organization [facility] Address [address] [place] [address] Care Team Providers Care Limousine And Hearse Upholsterer Name Role Phone Ady Bautista MD Primary Care Provider [phone] Allergies Active Allergy Reactions Criticality Noted Date [...] on file Legal Sex Female 9:10 AM LAYAWAY CLERK Gender Identity Not on file Sexual Orientation Not on file Last Filed Vital Signs Vital Sign Reading Time Taken Comments Blood Pressure 122/78 04/22/2024 10:00 AM CDT Pulse 78 01/05/2024 9:00 AM LAYAWAY CLERK Temperature 36.1 C (97 F) 05/21/2020 11:45 AM CDT Respiratory Rate - - Oxygen Saturation 98% 05/21/2020 11:45 AM CDT Inhaled Oxygen Concentration - - Weight 110.7 kg (244 lb) 04/22/2024 10:00 AM CDT Height 172.7 cm (5' 8 ) 04/22/2024 10:00 AM CDT Body Mass Index 37.1 04/22/2024 10:00 AM CDT Plan of Treatment Not on file Medical Devices Implanted Type Area Decay Control Operator Device Identifier Shelf Expiration Date Model / Serial / Lot [employer] Mammomark 8ga Bowtie Identifier Biopsy Site [id number] - [id number] Implanted:Qty: 1 on 01/05/2024 at [facility] Right: Breast [facility] [employer] [id number] 12/23/2024 [id number] / / [id number] Procedures Procedure Name Priority Date/Time Associated Diagnosis Comments HIGH RISK HPV DNA DETECTION WITH GENOTYPING Routine 04/22/2024 5:07 PM CDT Screening for cervical cancer SCREENING MAMMOGRAM BILATERAL W PREM Schedule Routine, Read Routine (OP Routine) 12/28/2023 3:57 PM LAYAWAY CLERK Screening mammogram, encounter for from Last 3 Months or Most Recently Relevant to Health Maintenance Results * High Risk HPV DNA Detection with Genotyping (Molecular component) (04/22/2024 5:07 PM CDT) HPV HR 16 Not Detected Not Detected HPV HR 18 Not Detected Not Detected [facility] HPV HR Non 16/18 Not Detected Not Detected [facility] Comment: Interpretive Data Nucleic acid [...] test have been verified by the [facility]. Correlate with separately reported cytology results, as applicable. Interpretive data last revised 23 Endocervical 04/22/2024 5:07 PM CDT 04/22/2024 10:06 PM CDT Narrative [facility] - 04/25/2024 8:17 PM CDT Clinical history and diagnosis->screening Testing type->Screening Last menstrual period (date if known)->IUD in placec Marcela Bell MD LAB BODY FLUIDS AND ST OOLS ORDERABLES Final Result [facility] [address] Department [place] [address] * (ABNORMAL) Screening Mammogram Bilateral W Prem (12/28/2023 3:57 PM LAYAWAY CLERK) Anatomical Region Laterality Modality Breast Bilateral Mammography Narrative 12/28/2023 5:01 PM LAYAWAY CLERK Examination: Screening Mammogram Bilateral W Prem: 12/28/23 [...] Most Recently Relevant to Health Maintenance Insurance [facility] ANTHEM ACCESS CHOICE [facility] ANTHEM ACCESS CHOICE Care Teams Limousine And Hearse Upholsterer Relationship Specialty Start Date End Date Ady Bautista MD PCP - General 06/19/20
--- OUTSIDE RECORDS SUMMARY | 2025-02-02 07:19 | XMS_ITS | Clinical Summary ---
Author Organization [facility] [employer] Address [address] [place] [address] Care Team Providers Care Computer Networking Instructor Name Role Phone Ady Bautista MD Primary Care Provider Unavailabl e Source Comments [facility] [employer],non-owned Affiliates and Associated Physician Practices is amultiple site organization consisting of ambulatory clinics and hospital sitesin [place], [place], [place] and [place]. This disclosure is being madepursuant to the Care Everywhere program and may not contain all information available regarding this patient. Last updated 18.[facility] [employer] Allergies Active Allergy Reactions Criticality Noted Date [...] Spot image left breast with possible sonogram. [facility] utilizes [employer] as a reminder system to notify patients [...] Spot image left breast with possible sonogram. [facility] utilizes [employer] as a reminder system to notify patients of their next recommended mammogram. Naldo Meraz MD MAMMO ORDERABLES from Last 3 Months or Most Recently Relevant to Health Maintenance Care Teams Computer Networking Instructor Relationship Specialty Start Date End Date Ady Bautista MD PCP - General Internal Medicine 05/28/13
--- OUTSIDE RECORDS SUMMARY | 2025-02-02 07:19 | XMS_ITS | Clinical Summary ---
Author Organization [facility] Address [address] [place] [address] Phone Care Team Providers Care Cream Separator Operator Name Role Phone Ady Bautista MD Primary Care Provider [phone] Allergies Active Allergy Reactions Criticality Noted Date [...] Bautista MD Referring Provider: Ady Bautista MD [address] [place] [address] Other: Problem Noted Date Diagnosed Date Fibrocystic [...] on file Legal Sex Female 5:55 AM ANGULAR JS DEVELOPER Gender Identity Not on file Sexual Orientation [...] Most Recently Relevant to Health Maintenance Insurance [facility] OPTIONS PPO [id number] Advance Directives For more information, please contact: [phone] * Full Code (Latest Code Status on File) Date Activated Date Inactivated Comments 02/18/2016 10:51 AM 02/18/2016 4:08 PM * Full Code Date Activated Date Inactivated Comments 02/18/2016 10:48 AM 02/18/2016 10:51 AM Care Teams Cream Separator Operator Relationship Specialty Start Date End Date Ady Bautista MD [address] [place] [address] PCP - General Internal Medicine 01/15/16
--- OUTSIDE RECORDS SUMMARY | 2025-02-02 07:19 | XMS_ITS | Encounter Summary ---
Author Organization [facility] Address [address] [place] [address] Phone Care Team Providers Care Marketing Editor Name Role Phone No, Physician Primary Care Provider [phone] Ady Bautista MD Primary Care Provider [phone] Encounter Details Date Type Department Care Team (Late st Contact Info) Description 01/11/2018 Orders Only [facility] ProviderAntonio MD [address] [place] [id number] Social History Tobacco Use Types Packs/Day Years Used Date Smoking Tobacco: Never Assessed Comments Unknown Sex and Gender Information Value Date Recorded Sex Assigned at Not on file Legal Sex Female 9:10 AM CENTRIFUGAL DRIER OPERATOR Gender Identity Not on file Sexual [...] on filedocumented in this encounter Care Teams Marketing Editor Relationship Specialty Start Date End Date No, Physician PCP - General 01/11/18 06/18/20 Ady Bautista MD PCP - General 06/19/20 documented as of this encounter
[2025-02-02 07:43] LABS: Basophils Percent Auto 0.3 % (0.2-1.2); Eosinophils Percent Auto 0.1 % (0-4.4); Hematocrit 41.2 % (37.0-47.0); Hemoglobin 14.1 g/dL (12.0-15.0); Immature Granulocyte Absolute 0.06 K/mm3 (0.00-0.031); Immature Granulocyte Percent A 0.4 % (0-0.5); Lymphocytes Absolute Auto 2.89 K/mm3 (0.9-3.2); Lymphocytes Percent Auto 20.5 % (18.3-44.2); Mean Corpuscular HGB Conc 34.2 g/dl (32-36); Mean Corpuscular Hemoglobin 31.7 pg (26-34); Mean Corpuscular Volume 92.6 fl (80-100); Mean Platelet Volume 8.6 fl (7.4-10.4); Monocytes Absolute Auto 1.1 K/mm3 (0.1-0.6); Neutrophils Percent Auto 70.7 % (45.5-73.1); Platelet Count Result 337 k/mm3 (150-375); Red Blood Count 4.45 M/mm3 (4.2-5.4); Red Cell Distribution Width 13.4 % (11.5-14.5); White Blood Count 14.1 K/mm3 (4.5-10.0)
[2025-02-02] MEDS: ONDANSETRON INJ 4 MG/2 ML VIAL IV PUSH ×2 (07:43→14:05)
[2025-02-02] MEDS: SODIUM CHLORIDE 0.9% IV 1,000 ML 999 ML IV CONT ×2 (07:43→08:38)
[2025-02-02 07:59] LABS: Alkaline Phosphatase 116 U/L (38-126); Anion Gap 19 mmol/L (4-12); Aspartate Amino Transferase 49 U/L (14-36); Bilirubin,Total 1.3 mg/dL (0.2-1.3); Blood Urea Nitrogen 21 mg/dL (7-17); Calcium 10.5 mg/dL (8.4-10.2); Carbon Dioxide 20 mmol/L (22-30); Chloride 102 mmol/L (98-107); Estimated CRCL calculation 43 ml/min; Estimated Glomerular Filt Rate 28; Glucose 139 mg/dL (65-110); Lipase 72 U/L (23-300); Potassium 3.9 mmol/L (3.4-5.0); Sodium 141 mmol/L (137-145)
[2025-02-02] MEDS: MORPHINE SULFATE (*CRX) 4 MG/ML INJ IV PUSH (08:04)
[2025-02-02 08:09] LABS: Alanine Aminotransferase 78 U/L (6-35)
--- NOTE | 2025-02-02 08:41 | ED_ITS ---
HPI - Abdominal Pain General Chief Complaint: Abdominal Pain Stated Complaint: throwing up around noon and right flank pain Time Seen by Provider: 02/02/25 07:07 History of Present Illness HPI narrative: Patient is a 44-year-old female who presents ER with vomiting and right-sided flank pain. Began yesterday around noon after eating a salad. Has been vomiting persistently throughout the evening with increased pain in the flank this morning. No diarrhea. No chest pain or abdominal pain. No known sick contacts. No blood in emesis. No history kidney stones. No urinary symptoms. Related Data Allergies Allergy/AdvReac Type Severity Reaction Status Date / Time No Known Allergies Allergy Verified 02/02/25 07:37 Review of Systems 2 Review of Systems: All systems reviewed & are unremarkable except as noted in HPI and below Constitutional: Constitutional: Reports no additional constitutional complaints ENT: Reports system reviewed and no additional complaints, except as documented Cardiovascular: Cardiovascular: Reports no additional cardiovascular complaints Respiratory: Respiratory: Reports no additional respiratory complaints Gastrointestinal: Gastrointestinal: Reports no additional gastrointestinal complaints [facility] Past Medical History Medical History (Updated 02/02/25 @ 17:44 by Claude Dalton MD) Fatty liver Hyperlipidemia Type 2 diabetes mellitus IBS (irritable bowel syndrome) Fracture of right elbow Anxiety Surgical History Surgical History Status post cholecystectomy lap dada 06/[address] Webber. H/O section x2 Family History Family History Other Ovarian cancer Social History Social History Years smoked: 7 Smoking status: Former smoker Tobacco type: cigarettes Smoking end date: 10/30/05 Alcohol intake: current Drinks per week: 3 Substance use: never Substance use type: does not use Lack of Transportation: No Lack of Food: Never True Current Housing: I Have Housing Concerned About Future Housing: No Difficulty Paying Gas/Electric Bills: No Difficulty Paying for Meds: No Currently Unemployed: No Education: Bachelor's Degree Difficulty w/ Childcare or Family Care: No Living arrangements: with family Occupation/Education: occupation Gender identity (if verbalized by the patient): Female Spiritual care concerns: No Exam 2 Narrative: GENERAL: Uncomfortable-appearing, well-nourished, and in no acute distress. HEAD: Normocephalic, atraumatic. ENT: Mucous membranes moist. NECK: Supple. CHEST: Clear to auscultation. No respiratory distress. HEART: Regular rate and rhythm. Normal peripheral pulses. ABDOMEN: Soft, nontender, nondistended. No CVA tenderness. EXTREMITIES: Normal range of motion. No edema. SKIN: Warm, dry, no rash. NEURO: Alert and oriented x3. PSYCH: Normal mood and affect. Course Course Emergency Course: Patient resting comfortably. Discussed with urology. Will go the OR. Patient has been NPO since yesterday. Vital Signs Vital signs: Vital Signs Temperature 98.5 F 02/02/25 03:02 Pulse Rate 89 02/02/25 03:02 Respiratory Rate 18 02/02/25 03:02 Blood Pressure 151/102 H 02/02/25 03:02 Pulse Oximetry 95 02/02/25 03:02 Oxygen Delivery Room Air 02/02/25 03:02 Temperature 97.6 F 02/02/25 13:13 Pulse Rate 75 02/02/25 14:45 Respiratory Rate 18 02/02/25 14:45 Blood Pressure 150/86 H 02/02/25 14:45 Pulse Oximetry 96 02/02/25 14:45 Oxygen Delivery Room Air 02/02/25 14:45 Oxygen Flow Rate 8 02/02/25 13:25 MDM - Abdominal Pain Lab Data 02/02/25 07:38 02/02/25 07:38 Labs: Lab Results 02/02/25 02/02/25 02/02/25 Range/Units 07:38 09:12 09:20 WBC 14.1 H (4.5-10.0) K/mm3 RBC 4.45 (4.2-5.4) M/mm3 Hgb 14.1 (12.0-15.0) g/dL Hct 41.2 (37.0-47.0) % MCV 92.6 (80-100) fl MCH 31.7 (26-34) pg MCHC 34.2 (32-36) g/dl RDW 13.4 (11.5-14.5) % Plt Count 337 (150-375) k/mm3 MPV 8.6 (7.4-10.4) fl Immature Gran % (Auto) 0.4 (0-0.5) % Neut % (Auto) 70.7 (45.5-73.1) % Lymph % (Auto) 20.5 (18.3-44.2) % [place] % (Auto) 8.0 (2.6-8.5) % Eos % (Auto) 0.1 (0-4.4) % Baso % (Auto) 0.3 (0.2-1.2) % Lymph # (Auto) 2.89 (0.9-3.2) K/mm3 [place] # (Auto) 1.1 H (0.1-0.6) K/mm3 Eos # (Auto) 0.0 (0-0.3) K/mm3 Baso # (Auto) 0.0 (0.0-0.1) K/mm3 Abs Immat Gran (auto) 0.06 H (0.00-0.031) K/mm3 Absolute Neuts (auto) 10.0 H (1.3-6.7) K/mm3 Absolute Nucleated RBC 0.000 (0.0-0.012) K/mm3 Nucleated RBC % 0.0 (0.0-0.2) % Sodium 141 (137-145) mmol/L Potassium 3.9 (3.4-5.0) mmol/L Chloride 102 (98-107) mmol/L Carbon Dioxide 20 L (22-30) mmol/L Anion Gap 19 H (4-12) mmol/L BUN 21 H (7-17) mg/dL Creatinine 1.91 H (0.7-1.0) mg/dL Estim Creat Clear Calc 43 ml/min Estimated GFR 28 L (59 - ) Glucose 139 H (65-110) mg/dL POC Capillary Glucose (65-105) mg/dl Calcium 10.5 H (8.4-10.2) mg/dL Total Bilirubin 1.3 (0.2-1.3) mg/dL AST 49 H (14-36) U/L ALT 78 H (6-35) U/L Alkaline Phosphatase 116 (38-126) U/L Total Protein 8.0 (6.3-8.2) g/dL Albumin 5.0 (3.5-5.1) g/dL Lipase 72 (23-300) U/L Urine Color Yellow (Yellow) Urine Appearance Clear (Clear) Urine pH 5.5 (5.0-9.0) Ur Specific [place] 1.008 (1.001-1.035) Urine Protein Negative (Negative) mg/dL Urine Glucose (UA) Negative (Negative) mg/dL Urine Ketones Negative (Negative) mg/dL Ur Blood (Man) 2+ H (Negative) Urine Nitrate Negative (Negative) Urine Bilirubin Negative (Negative) Urine Urobilinogen 0.2 (<2.0) mg/dL Leukocyte Esterase Rfl 1+ H (Negative) RENU/UL Urine RBC 0-2 (0-2) /hpf Urine WBC 11-20 H (0-3) /hpf Ur Squamous Epith Cells None seen (Few) /hpf Urine Bacteria None seen /hpf Urine Casts 0-2 POC Urine HCG, Qual Negative (Negative) 02/02/25 Range/Units 13:18 WBC (4.5-10.0) K/mm3 RBC (4.2-5.4) M/mm3 Hgb (12.0-15.0) g/dL Hct (37.0-47.0) % MCV (80-100) fl MCH (26-34) pg MCHC (32-36) g/dl RDW (11.5-14.5) % Plt Count (150-375) k/mm3 MPV (7.4-10.4) fl Immature Gran % (Auto) (0-0.5) % Neut % (Auto) (45.5-73.1) % Lymph % (Auto) (18.3-44.2) % [place] % (Auto) (2.6-8.5) % Eos % (Auto) (0-4.4) % Baso % (Auto) (0.2-1.2) % Lymph # (Auto) (0.9-3.2) K/mm3 [place] # (Auto) (0.1-0.6) K/mm3 Eos # (Auto) (0-0.3) K/mm3 Baso # (Auto) (0.0-0.1) K/mm3 Abs Immat Gran (auto) (0.00-0.031) K/mm3 Absolute Neuts (auto) (1.3-6.7) K/mm3 Absolute Nucleated RBC (0.0-0.012) K/mm3 Nucleated RBC % (0.0-0.2) % Sodium (137-145) mmol/L Potassium (3.4-5.0) mmol/L Chloride (98-107) mmol/L Carbon Dioxide (22-30) mmol/L Anion Gap (4-12) mmol/L BUN (7-17) mg/dL Creatinine (0.7-1.0) mg/dL Estim Creat Clear Calc ml/min Estimated GFR (59 - ) Glucose (65-110) mg/dL POC Capillary Glucose 101 (65-105) mg/dl Calcium (8.4-10.2) mg/dL Total Bilirubin (0.2-1.3) mg/dL AST (14-36) U/L ALT (6-35) U/L Alkaline Phosphatase (38-126) U/L Total Protein (6.3-8.2) g/dL Albumin (3.5-5.1) g/dL Lipase (23-300) U/L Urine Color (Yellow) Urine Appearance (Clear) Urine pH (5.0-9.0) Ur Specific [place] (1.001-1.035) Urine Protein (Negative) mg/dL Urine Glucose (UA) (Negative) mg/dL Urine Ketones (Negative) mg/dL Ur Blood (Man) (Negative) Urine Nitrate (Negative) Urine Bilirubin (Negative) Urine Urobilinogen (<2.0) mg/dL Leukocyte Esterase Rfl (Negative) RENU/UL Urine RBC (0-2) /hpf Urine WBC (0-3) /hpf Ur Squamous Epith Cells (Few) /hpf Urine Bacteria /hpf Urine Casts POC Urine HCG, Qual (Negative) Imaging Data Radiologist's impression: ITS Impressions Abdomen X-Ray 02/02/25 10:40 IMPRESSION: NO ACUTE ABDOMINAL FINDINGS. Left mid ureteric and right kidney stones. Noncontrast CT is better for evaluation. Abdomen/Pelvis CT 02/02/25 10:45 IMPRESSION: 1. Bilateral ureteric stones with hydronephrotic changes. Bilateral kidney stones. 2. Hepatomegaly with fat infiltration. 3. No evidence of appendicitis, diverticulitis or intestinal obstruction. Discharge Plan Discharge Clinical Impression: Bilateral ureteral calculi, LAURIE (acute kidney injury) Patient Disposition: Still a Patient Condition: Stable
[2025-02-02 09:22] LABS: BEDSIDEPREGUCG Negative (Negative)
[2025-02-02 09:25] LABS: Add Urine Microscopic? YES; Appearance Urine Clear (Clear); Bacteria Urine None Seen /hpf; Bilirubin Urine Negative (Negative); Blood Urine 2+ (Negative); Color Urine Yellow (Yellow); Glucose Urine UA Negative (Negative); Ketones Urine Negative (Negative); Leukocyte Esterase Ur 1+ LEU/UL (Negative); Nitrate Urine Negative (Negative); Non Pathogenic Casts 0-2; Protein Urine Negative (Negative); RBC Urine 0-2 /hpf (0-2); Specific Grav Ur 1.008 (1.001-1.035); Squamous Epithelial Cell Urine None Seen /hpf (Few); Urobilinogen Urine 0.2 mg/dL (<2.0); pH Urine 5.5 (5.0-9.0)
--- OUTSIDE RECORDS SUMMARY | 2025-02-02 10:21 | XMS_ITS | Clinical Summary ---
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
--- OUTSIDE RECORDS SUMMARY | 2025-02-02 10:22 | XMS_ITS | Clinical Summary ---
Author Organization [facility] [employer] Address [address] [place] [address] Care Team Providers Care Booky Name Role Phone Ady Bautista MD Primary Care Provider Unavailabl e Source Comments [facility] [employer],non-owned Affiliates and Associated Physician Practices is amultiple site organization consisting of ambulatory clinics and hospital sitesin [place] and [place]. This disclosure is being madepursuant to the Care Everywhere program and may not contain all information available regarding this patient. Last updated 18.[facility] [employer] Allergies Active Allergy Reactions Criticality Noted Date [...] Spot image left breast with possible sonogram. [facility] utilizes [facility] as a reminder system to notify patients [...] Spot image left breast with possible sonogram. [facility] utilizes [facility] as a reminder system to notify patients of their next recommended mammogram. Naldo Meraz MD MAMMO ORDERABLES from Last 3 Months or Most Recently Relevant to Health Maintenance Care Teams Booky Relationship Specialty Start Date End Date Ady Bautista MD PCP - General Internal Medicine 05/28/13
--- OUTSIDE RECORDS SUMMARY | 2025-02-02 10:22 | XMS_ITS | Referral Summary ---
Author Organization [facility] Address [address] [place] [address] Care Team Providers Care Lead Nitrate Processor Name Role Phone Ady Bautista MD Primary Care Provider [phone] Allergies Active Allergy Reactions Criticality Noted Date [...] on file Legal Sex Female 9:10 AM CONFECTIONERY LABORATORY MANAGER Gender Identity Not on file Sexual Orientation Not on file Last Filed Vital Signs Vital Sign Reading Time Taken Comments Blood Pressure 122/78 04/22/2024 10:00 AM CDT Pulse 78 01/05/2024 9:00 AM CONFECTIONERY LABORATORY MANAGER Temperature 36.1 C (97 F) 05/21/2020 11:45 AM CDT Respiratory Rate - - Oxygen Saturation 98% 05/21/2020 11:45 AM CDT Inhaled Oxygen Concentration - - Weight 110.7 kg (244 lb) 04/22/2024 10:00 AM CDT Height 172.7 cm (5' 8 ) 04/22/2024 10:00 AM CDT Body Mass Index 37.1 04/22/2024 10:00 AM CDT Plan of Treatment Not on file Medical Devices Implanted Type Area Maintenance Coordinator Device Identifier Shelf Expiration Date Model / Serial / Lot [employer] Mammomark 8ga Bowtie Identifier Biopsy Site [id number] - [id number] Implanted:Qty: 1 on 01/05/2024 at [facility] Right: Breast [employer] [id number] 12/23/2024 [id number] / / [id number] Procedures Procedure Name Priority Date/Time Associated Diagnosis Comments HIGH RISK HPV DNA DETECTION WITH GENOTYPING Routine 04/22/2024 5:07 PM CDT Screening for cervical cancer SCREENING MAMMOGRAM BILATERAL W PREM Schedule Routine, Read Routine (OP Routine) 12/28/2023 3:57 PM CONFECTIONERY LABORATORY MANAGER Screening mammogram, encounter for from Last 3 Months or Most Recently Relevant to Health Maintenance Results * High Risk HPV DNA Detection with Genotyping (Molecular component) (04/22/2024 5:07 PM CDT) HPV HR 16 Not Detected Not Detected HPV HR 18 Not Detected Not Detected [facility] HPV HR Non 16/18 Not Detected Not Detected [facility] Comment: Interpretive Data Nucleic acid [...] this test have been verified by the [facility]. Correlate with separately reported cytology results, as applicable. Interpretive data last revised 23 Endocervical 04/22/2024 5:07 PM CDT 04/22/2024 10:06 PM CDT Narrative [facility] - 04/25/2024 8:17 PM CDT Clinical history and diagnosis->screening Testing type->Screening Last menstrual period (date if known)->IUD in placec Marcela Bell MD LAB BODY FLUIDS AND ST OOLS ORDERABLES Final Result [facility] [address] [place] [address] * (ABNORMAL) Screening Mammogram Bilateral W Prem (12/28/2023 3:57 PM CONFECTIONERY LABORATORY MANAGER) Anatomical Region Laterality Modality Breast Bilateral Mammography Narrative 12/28/2023 5:01 PM CONFECTIONERY LABORATORY MANAGER Examination: Screening Mammogram Bilateral W Prem: 12/28/23 [...] Most Recently Relevant to Health Maintenance Insurance [facility] ANTHEM ACCESS CHOICE [facility] [place] [address] ANTHEM ACCESS CHOICE Care Teams Lead Nitrate Processor Relationship Specialty Start Date End Date Ady Bautista MD PCP - General 06/19/20
--- OUTSIDE RECORDS SUMMARY | 2025-02-02 10:22 | XMS_ITS | Clinical Summary ---
Author Organization [facility] Address [address] [place] [address] Phone Care Team Providers Care Wharfinger Chief Name Role Phone Ady Bautista MD Primary Care Provider [phone] Allergies Active Allergy Reactions Criticality Noted Date [...] Bautista MD Referring Provider: Ady Bautista MD [address] [place] [address] Other: Problem Noted Date Diagnosed Date Fibrocystic [...] on file Legal Sex Female 5:55 AM CHIEF NURSING EXECUTIVE Gender Identity Not on file Sexual Orientation [...] Recently Relevant to Health Maintenance Insurance [facility] OPTIONS PPO [id number] Advance Directives For more information, please contact: [phone] * Full Code (Latest Code Status on File) Date Activated Date Inactivated Comments 02/18/2016 10:51 AM 02/18/2016 4:08 PM * Full Code Date Activated Date Inactivated Comments 02/18/2016 10:48 AM 02/18/2016 10:51 AM Care Teams Wharfinger Chief Relationship Specialty Start Date End Date Ady Bautista MD [address] [place] [address] PCP - General Internal Medicine 01/15/16
--- OUTSIDE RECORDS SUMMARY | 2025-02-02 10:22 | XMS_ITS | Encounter Summary ---
Author Organization [facility] Address [address] [place] [address] Phone Care Team Providers Care Furnace Process Plant Operator Name Role Phone No, Physician Primary Care Provider [phone] Ady Bautista MD Primary Care Provider [phone] Encounter Details Date Type Department Care Team (Late st Contact Info) Description 01/11/2018 Orders Only [facility] ProviderAntonio MD [address] [place] [address] Social History Tobacco Use Types Packs/Day Years Used Date Smoking Tobacco: Never Assessed Comments Unknown Sex and Gender Information Value Date Recorded Sex Assigned at Not on file Legal Sex Female 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
--- OUTSIDE RECORDS SUMMARY | 2025-02-02 10:22 | XMS_ITS | Clinical Summary ---
Author Organization [facility] Address [address] [place] [address] Care Team Providers Care Clinical Ob Name Role Phone Ady Bautista MD Primary Care Provider [phone] Allergies Active Allergy Reactions Criticality Noted Date [...] on file Legal Sex Female 9:10 AM WHEY DEPARTMENT OPERATOR Gender Identity Not on file Sexual [...] AM CDT Pulse 78 01/05/2024 9:00 AM WHEY DEPARTMENT OPERATOR Temperature 36.1 C (97 F) 05/21/2020 [...] this topic Medical Devices Implanted Type Area Violin Maker Hand Device Identifier Shelf Expiration Date Model / Serial / Lot [employer] Mammomark 8ga Bowtie Identifier Biopsy Site [id number] - [id number] Implanted:Qty: 1 on 01/05/2024 at [facility] Right: Breast Devicor [employer] [id number] 12/23/2024 [id number] / / [id number] Procedures Procedure Name Priority Date/Time Associated Diagnosis Comments HIGH RISK HPV DNA DETECTION WITH GENOTYPING Routine 04/22/2024 5:07 PM CDT Screening for cervical cancer SCREENING MAMMOGRAM BILATERAL W PREM Schedule Routine, Read Routine (OP Routine) 12/28/2023 3:57 PM WHEY DEPARTMENT OPERATOR Screening mammogram, encounter for from Last 3 Months or Most Recently Relevant to Health Maintenance Results * High Risk HPV DNA Detection with Genotyping (Molecular component) (04/22/2024 5:07 PM CDT) HPV HR 16 Not Detected Not Detected HPV HR 18 Not Detected Not Detected [facility] HPV HR Non 16/18 Not Detected Not Detected [facility] Comment: Interpretive Data Nucleic acid [...] this test have been verified by the [facility]. Correlate with separately reported cytology results, as applicable. Interpretive data last revised 23 Endocervical 04/22/2024 5:07 PM CDT 04/22/2024 10:06 PM CDT Narrative [facility] - 04/25/2024 8:17 PM CDT Clinical history and diagnosis->screening Testing type->Screening Last menstrual period (date if known)->IUD in placec Marcela Bell MD LAB BODY FLUIDS AND ST OOLS ORDERABLES Final Result [facility] [address] Department [place] [address] * (ABNORMAL) Screening Mammogram Bilateral W Prem (12/28/2023 3:57 PM WHEY DEPARTMENT OPERATOR) Anatomical Region Laterality Modality Breast Bilateral Mammography Narrative 12/28/2023 5:01 PM WHEY DEPARTMENT OPERATOR Examination: Screening Mammogram Bilateral W Prem: [...] Most Recently Relevant to Health Maintenance Insurance [facility] H[facility]/PPO Address: [place] [address] [facility] HMO/PPO Address: [place] [address] [employer] ACCESS CHOICE [facility] HMO/PPO Address: [facility] [address] [place] [address] [facility] ACCESS CHOICE Care Teams Clinical Ob Relationship Specialty Start Date End Date Ady Bautista MD PCP - General 06/19/20
--- NOTE | 2025-02-02 11:44 | P.CONUR_ITS ---
Assessment and Plan Assessment and plan (1) Bilateral ureteral calculi: Code(s): N20.1 - Calculus of ureter Status: Acute Assessment and Plan: Bilateral ureteral calculi. Given rise in creatinine and persistent symptoms will proceed with cystoscopy, bilateral retrogrades, bilateral ureteral stent placement at a minimum. Will make a decision regarding any ureteroscopy with laser intraoperatively. (2) Hydronephrosis: Code(s): N13.30 - Unspecified hydronephrosis Status: Acute Assessment and Plan: Secondary to bilateral ureteral calculi Urology Consult Note HPI Date Seen: 02/02/25 Time Seen: 11:44 Requesting Physician: Reinier Santos MD Primary Care Provider: Radha Layton NP Consult Narrative Reason for consult: Bilateral obstructing ureteral calculi Narrative: Marcelina Weaver is a 44 year old female who presented to the emergency room with some right flank pain and persistent nausea vomiting. Evaluation in the CT actually surprisingly revealed bilateral stones in the proximal ureters. She has a 6 mm right proximal stone in an 9 mm left proximal stone. There is hydronephrosis bilaterally. Denied any fevers. Her white count is normal in denied any fevers. Creatinine is up from baseline to a level of 1.91 from baseline of 0.95. Urinalysis was leukocyte esterase positive for the 11-20 white cells but no discrete bacteria noted. Review of Systems 2 Review of Systems: All systems reviewed & are unremarkable except as noted in HPI and below PMFSH Past Medical History Medical History IBS (irritable bowel syndrome) Fracture of right elbow Anxiety Surgical History Surgical History Status post cholecystectomy lap dada 06/[address] Webber. H/O section x2 Family History Family History Other Ovarian cancer Social History Social History Years smoked: 7 Smoking status: Former smoker Tobacco type: cigarettes Smoking end date: 10/30/05 Alcohol intake: current Drinks per week: 3 Substance use: never Substance use type: does not use Lack of Transportation: No Lack of Food: Never True Current Housing: I Have Housing Concerned About Future Housing: No Difficulty Paying Gas/Electric Bills: No Difficulty Paying for Meds: No Currently Unemployed: No Education: Bachelor's Degree Difficulty w/ Childcare or Family Care: No Living arrangements: with family Occupation/Education: occupation Gender identity (if verbalized by the patient): Female Spiritual care concerns: No Meds Home Medications and Allergies Home Medications ?Medication ?Instructions ?Recorded ?Confirmed ?Type bupropion HCl 150 mg 24 hr tablet, 150 mg PO QAM #90 tabs 11/22/24 12/20/24 Rx extended release (Wellbutrin XL) venlafaxine 75 mg capsule,extended 75 mg PO DAILY #90 caps 11/22/24 12/20/24 Rx release 24 hr atorvastatin 10 mg tablet (Lipitor) 10 mg PO QHS #90 tabs 12/20/24 12/20/24 Rx prednisone 10 mg tablet 10 mg PO DIRECTED #21 tabs 01/13/25 Rx semaglutide 0.25 mg or 0.5 mg (2 0.5 mg (0.736 mL) subcut WEEKLY #3 01/24/25 Rx mg/3 mL) subcutaneous pen injector mL (Ozempic) Allergies Allergy/AdvReac Type Severity Reaction Status Date / Time No Known Allergies Allergy Verified 02/02/25 07:37 Vital Signs Vital Signs - 24 hr 02/02/25 03:02 02/02/25 08:39 02/02/25 10:49 Temperature 36.9 C Pulse Rate 89 77 79 Respiratory Rate 18 19 Blood Pressure 151/102 H 143/65 H 121/64 Pulse Oximetry 95 96 94 Oxygen Delivery Room Air 02/02/25 11:15 Temperature Pulse Rate 72 Respiratory Rate 17 Blood Pressure 123/63 Pulse Oximetry 97 Oxygen Delivery Exam 2 Const: General: cooperative Resp: Effort & Inspection: normal respiratory effort Cardio: Rate: regular rate Results Labs 02/02/25 07:38 02/02/25 07:38 Labs: Short CBC 02/02/25 Range/Units 07:38 WBC 14.1 H (4.5-10.0) K/mm3 Hgb 14.1 (12.0-15.0) g/dL Hct 41.2 (37.0-47.0) % Plt Count 337 (150-375) k/mm3 BMP 02/02/25 07:38 Sodium 141 Potassium 3.9 Chloride 102 Carbon Dioxide 20 L BUN 21 H Creatinine 1.91 H Glucose 139 H Calcium 10.5 H Liver Function 02/02/25 Range/Units 07:38 Total Bilirubin 1.3 (0.2-1.3) mg/dL AST 49 H (14-36) U/L ALT 78 H (6-35) U/L Alkaline Phosphatase 116 (38-126) U/L Albumin 5.0 (3.5-5.1) g/dL Urine 02/02/25 Range/Units 09:12 Urine Color Yellow (Yellow) Urine Appearance Clear (Clear) Urine pH 5.5 (5.0-9.0) Ur Specific [place] 1.008 (1.001-1.035) Urine Protein Negative (Negative) mg/dL Urine Glucose (UA) Negative (Negative) mg/dL
--- NOTE | 2025-02-02 11:47 | P.PNAN_ITS ---
Anes - Initial Pre Proc Eval Procedure: Operation Date: 02/02/25 11:30 Proposed Procedures p Cysto, RPG, Stone Ext, Stent Placement(Bilateral) - Reinier Santos MD Date/Time: 02/02/25 11:47 Surgeon: Reinier Santos MD Pre Op Diagnosis: throwing up around noon and right flank pain Patient Data Age: 44 Gender: F Height: 1.73 m Weight: 109 kg Last Vital Signs Temp 36.9 C 02/02/25 03:02 Pulse 72 02/02/25 11:15 Resp 17 02/02/25 11:15 BP 123/63 02/02/25 11:15 Pulse Ox 97 02/02/25 11:15 O2 Del Method Room Air 02/02/25 03:02 Allergies Allergy/AdvReac Type Severity Reaction Status Date / Time No Known Allergies Allergy Verified 02/02/25 07:37 Home Medications ?Medication ?Instructions ?Recorded ?Confirmed ?Type bupropion HCl 150 mg 24 hr tablet, 150 mg PO QAM #90 tabs 11/22/24 12/20/24 Rx extended release (Wellbutrin XL) venlafaxine 75 mg capsule,extended 75 mg PO DAILY #90 caps 11/22/24 12/20/24 Rx release 24 hr atorvastatin 10 mg tablet (Lipitor) 10 mg PO QHS #90 tabs 12/20/24 12/20/24 Rx prednisone 10 mg tablet 10 mg PO DIRECTED #21 tabs 01/13/25 Rx semaglutide 0.25 mg or 0.5 mg (2 0.5 mg (0.736 mL) subcut WEEKLY #3 01/24/25 Rx mg/3 mL) subcutaneous pen injector mL (Ozempic) Laboratory Tests 02/02/25 02/02/25 02/02/25 07:38 09:12 09:20 WBC 14.1 H K/mm3 (4.5-10.0) RBC 4.45 M/mm3 (4.2-5.4) Hgb 14.1 g/dL (12.0-15.0) Hct 41.2 % (37.0-47.0) MCV 92.6 fl (80-100) MCH 31.7 pg (26-34) MCHC 34.2 g/dl (32-36) RDW 13.4 % (11.5-14.5) Plt Count 337 k/mm3 (150-375) MPV 8.6 fl (7.4-10.4) Immature Gran % (Auto) 0.4 % (0-0.5) Neut % (Auto) 70.7 % (45.5-73.1) Lymph % (Auto) 20.5 % (18.3-44.2) [place] % (Auto) 8.0 % (2.6-8.5) Eos % (Auto) 0.1 % (0-4.4) Baso % (Auto) 0.3 % (0.2-1.2) Lymph # (Auto) 2.89 K/mm3 (0.9-3.2) [place] # (Auto) 1.1 H K/mm3 (0.1-0.6) Eos # (Auto) 0.0 K/mm3 (0-0.3) Baso # (Auto) 0.0 K/mm3 (0.0-0.1) Abs Immat Gran (auto) 0.06 H K/mm3 (0.00-0.031) Absolute Neuts (auto) 10.0 H K/mm3 (1.3-6.7) Absolute Nucleated RBC 0.000 K/mm3 (0.0-0.012) Nucleated RBC % 0.0 % (0.0-0.2) Sodium 141 mmol/L (137-145) Potassium 3.9 mmol/L (3.4-5.0) Chloride 102 mmol/L (98-107) Carbon Dioxide 20 L mmol/L (22-30) Anion Gap 19 H mmol/L (4-12) BUN 21 H mg/dL (7-17) Creatinine 1.91 H mg/dL (0.7-1.0) Estim Creat Clear Calc 43 ml/min Estimated GFR 28 L (59 - ) Glucose 139 H mg/dL (65-110) Calcium 10.5 H mg/dL (8.4-10.2) Total Bilirubin 1.3 mg/dL (0.2-1.3) AST 49 H U/L (14-36) ALT 78 H U/L (6-35) Alkaline Phosphatase 116 U/L (38-126) Total Protein 8.0 g/dL (6.3-8.2) Albumin 5.0 g/dL (3.5-5.1) Lipase 72 U/L (23-300) Urine Color Yellow (Yellow) Urine Appearance Clear (Clear) Urine pH 5.5 (5.0-9.0) Ur Specific [place] 1.008 (1.001-1.035) Urine Protein Negative mg/dL (Negative) Urine Glucose (UA) Negative mg/dL (Negative) Urine Ketones Negative mg/dL (Negative) Ur Blood (Man) 2+ H (Negative) Urine Nitrate Negative (Negative) Urine Bilirubin Negative (Negative) Urine Urobilinogen 0.2 mg/dL (<2.0) Leukocyte Esterase Rfl 1+ H RENU/UL (Negative) Urine RBC 0-2 /hpf (0-2) Urine WBC 11-20 H /hpf (0-3) Ur Squamous Epith Cells None seen /hpf (Few) Urine Bacteria None seen /hpf Urine Casts 0-2 POC Urine HCG, Qual Negative (Negative) Patient hx anesthesia problems: none Family hx anesthesia problems: none Results Review: All pre-operative results and documents have been reviewed as part of the pre- operative evaluation. [facility] Past Medical History Medical History (Updated 02/02/25 @ 11:47 by Jatin Andre DO) Fatty liver Hyperlipidemia Type 2 diabetes mellitus IBS (irritable bowel syndrome) Fracture of right elbow Anxiety Surgical History Surgical History Status post cholecystectomy lap dada 06/[address] Webber. H/O section x2 Family History Family History Other Ovarian cancer Social History Social History Years smoked: 7 Smoking status: Former smoker Tobacco type: cigarettes Smoking end date: 10/30/05 Alcohol intake: current Drinks per week: 3 Substance use: never Substance use type: does not use Lack of Transportation: No Lack of Food: Never True Current Housing: I Have Housing Concerned About Future Housing: No Difficulty Paying Gas/Electric Bills: No Difficulty Paying for Meds: No Currently Unemployed: No Education: Bachelor's Degree Difficulty w/ Childcare or Family Care: No Living arrangements: with family Occupation/Education: occupation Gender identity (if verbalized by the patient): Female Spiritual care concerns: No Anes - Eval Final PreProcedure Day of Procedure 02/02/25 11:47 Patient weight: obese Heart: regular rate and rhythm Lungs: clear to auscultation Airway: Mallampati scale class II Neurological: alert and oriented Last oral intake: >/= 8 hours ASA classification: III Emergent: yes Anesthetic plan: proceed Anesthesia type and monitoring: general ETT and standard monitoring Results Review: All pre-operative results and documents have been reviewed as part of the pre- operative evaluation. Informed Consent: The patient's anesthetic plan and its attendant risks and benefits were discussed with the patient/family/POA. Questions were solicited and answers provided to the satisfaction of the patient/family/POA.
--- NOTE | 2025-02-02 11:47 | WPDHPUPDATE1 ---
History and Physical Update Update Date/Time: 02/02/25 11:47 History and Physical has been reviewed, including an updated exam of the patient. There are NO changes in the patient's condition. Risks, benefits, and alternatives have been discussed and questions answered. Patient agrees to proceed with procedure. Proceed with cystoscopy, bilateral retrogrades, bilateral ureteral stent placement, possible bilateral ureteroscopy with laser
[2025-02-02] MEDS: ceFAZolin 1 GM/NS 50 ML 1 GM/50 ML BAG IVPB (11:59)
[2025-02-02] MEDS: LIDOCAINE 2% GEL UROJET 10 ML PKG MUCOUS MEM (12:16)
--- NOTE | 2025-02-02 13:09 | P.OP_ITS ---
Procedure Note - Detailed Date of Procedure 02/02/25 Pre-op Diagnosis Bilateral obstructing ureteral calculi with hydronephrosis Post-op Diagnosis Same Procedure Performed Cystoscopy, bilateral retrogrades, bilateral ureteroscopy with laser, bilateral ureteral stent placement 4.8 [place] contour Surgeon Reinier Santos MD Anesthesia General Description of Procedure Patient was taken to the operative suite correctly identified. Once anesthesia was obtained she was placed in dorsal lithotomy position prepped and draped usual sterile fashion. Twenty-two [place] scope was inserted the bladder. There were no tumors noted. The right ureteral orifice was cannulated with a guidewire. With placement of the stent it appeared that the stone was migrated item pushed back into the kidney. There was no purulence noted from the orifice. I dilated the orifice with an 8/10 dilator and gently placed a flexi full ureteral scope up to the kidney. The stone was visualized and using a 200 micron fiber the stone was dusted. It was also noted that she had another stone or/collection of stones in the right lateral upper pole. This was in a somewhat tight calyx. I went ahead and dusted these stones also. There may be some small fragments that are residual. This point a pyelogram was performed 4.8 [place] contour stent was placed. Attention was then given to the left side. A wire would not go past this impacted proximal stone. I tried a Sensor wire as well as an angled Glidewire. I advanced a [place] up to the stone tried to manipulate a wire past was unsuccessful. I then placed a Sensor wire up to the stone. A ureteral access sheath was placed in a mini flexible scope was inserted. The stone was significantly impacted and there was no way to get a wire past it. Using the 200 micron fiber I was able to fragment the stone. I was then able to get past the stone and place a Sensor wire. The stone was then pushed into the kidney. I fragmented as much as I could at this setting. Pyelogram was then performed and a 4.8 [place] contour stent was again placed with the proximal end and 1 of the calices and the distal in the bladder. Bladder was drained. 2% viscous lidocaine was inserted into the urethra and patient is taken recovery stable condition. She tolerates think she will be discharged home today with pain meds and antibiotics as well as oxybutynin for spasm. Otherwise she will be admitted for pain management. Plan is to obtain a renal CT KUB in about a week prior to removal of any ureteral stents for residual stones. This completes dictation. Please send a copy of op note to my office. Estimated Blood Loss 0 Drains Yes Packing No Pathology None sent Condition Stable Disposition PACU
[2025-02-02] MEDS: LACTATED RINGERS 1,000 ML 30 ML IV CONT (13:13)
[2025-02-02 13:20] LABS: Glucose Point of Care 101 mg/dl (65-105)
[2025-02-02] MEDS: diphenhydrAMINE HCl INJ 50 MG/ML VIAL 12.5 MG IV PUSH (14:19)
[2025-02-02] MEDS: oxyBUTYnin CHLORIDE 5 MG TABLET PO (14:29)
== END 2025-02-02 14:55 | disposition home or self-care (01) ==
LOC: ANHED 07:17 → ANHSURGERY 10:20
PROVIDERS: Emergency Provider Emergency Medicine; PCP Nurse Practitioner; Visit Provider Urology
PROC: (CPT 52352; principal; 2025-02-02 11:30)
DX: N13.2 Hydronephrosis with renal and ureteral calculous obstruction (principal); Z87.891 Personal history of nicotine dependence
CPT/HCPCS: 52356; 36415; 74018; 74176; 74420; 80053; 81001; 81025; 82948; 83690; 85025; 87086; 96361; 96374; 96375; 99285; A9270; C1758; C1769; C1894; C2617; J0690; J1200; J2270; J2405; J2704; J3010; J7030; J7120; Q9966

== ENCOUNTER 2025-02-18 12:40 | Outpatient (CLI) | payer BC, OTHER, SELFPAY ==
--- NOTE | ~2025-02-18 | CT_ITS ---
Non-contrast CT scan of the Abdomen and Pelvis Clinical indication: Kidney stone Technique: 2.5 mm axial scans were obtained through the abdomen and pelvis without intravenous or or al contrast. Dose reduction technique was used on this scan by utilizing automated exposure control a nd iterative reconstruction technique. The dose-length product (DLP) was 741.92 mGy-cm. COMPARISON: 02/02/2025 Findings: Images through the lung bases reveal no abnormalities. Bilateral ureteral stents are present. There is mild left hydronephrosis. There are small nonobstruct ing stones bilaterally, measuring up to 2 mm in the left kidney and 5 mm in the right kidney. No uret eral stones identified. No right hydronephrosis.. The liver, spleen, pancreas, and adrenals appear normal. Cholecystectomy clips are present. There is no aortic aneurysm. There is no evidence of bowel obstruction. Images through the pelvis were performed. There is no evidence of ascites or lymphadenopathy. Urinary bladder unremarkable aside from the distal portions of the stents present. IUD present. No adnexal m ass seen. Impression: Bilateral ureteral stents with mild left hydronephrosis but no ureteral stones. No right hydronephros is. Small bilateral nonobstructing renal stones, as above. IUD. Reviewed, dictated and finalized at location M. Impression: Bilateral ureteral stents with mild left hydronephrosis but no ureteral stones. No right hydronephrosis. Small bilateral nonobstructing renal stones, as above. IUD.
--- NOTE | ~2025-02-18 | XR_ITS ---
XR abdomen/kub 1V Ordering provider: Reinier Santos MD History: . KIDNEY STONE, FOLLOW-UP . Comparison: February 02, 2025 FINDINGS: BOWEL: Nonobstructive bowel gas pattern. ORGANOMEGALY: None. SIGNIFICANT PATHOLOGIC CALCIFICATIONS: Stones in the right kidney upper pole. Bilateral double-J stent. Tiny stones in the left upper ureter are noted. Left kidney stones are also seen. OTHER: No free air is seen under the diaphragm. IMPRESSION: NO ACUTE ABDOMINAL FINDINGS. Bilateral double-J stents. Bilateral kidney stones with left upper ureteric stones. Reviewed, dictated and finalized at location A.
--- OUTSIDE RECORDS SUMMARY | 2025-02-18 14:11 | XMS_ITS | Encounter Summary ---
Author Organization [facility] [employer] [facility] Address [address] [place] [address] Phone Care Team Providers Care Assembly Line Worker Name Role Phone No, Physician Primary Care Provider [phone] Ady Bautista MD Primary Care Provider [phone] Radha Layton NP Primary Care Provider Encounter Details Date Type Department Care Team (Late st Contact Info) Description 01/11/2018 Orders Only [facility] ProviderAntonio MD [address] [place] [address] Social History Tobacco Use Types Packs/Day Years Used Date Smoking Tobacco: Never Assessed Comments Unknown Sex and Gender Information Value Date Recorded Sex Assigned at Not on file 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
--- OUTSIDE RECORDS SUMMARY | 2025-02-18 14:11 | XMS_ITS | Clinical Summary ---
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 Gender Identity Not on file Sexual Orientation [...] 19+ 3-dose series) 1997 HPV/Cotest (21-29) 1999 CERVICAL CANCER SCREENING 2008 HPV/Cotest (30-65) [...] Most Recently Relevant to Health Maintenance Insurance [facility] OPTIONS PPO [id number] [id number] Advance Directives For more information, please contact: [phone] * Full Code (Latest Code Status on File) Date Activated Date Inactivated Comments 02/18/2016 10:51 AM 02/18/2016 4:08 PM * Full Code Date Activated Date Inactivated Comments 02/18/2016 10:48 AM 02/18/2016 10:51 AM Care Teams Hourly Shift Manager Relationship Specialty Start Date End Date Ady Bautista MD [address] [place] [address] PCP - General Internal Medicine 01/15/16
--- OUTSIDE RECORDS SUMMARY | 2025-02-18 14:11 | XMS_ITS | Clinical Summary ---
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 Gender Identity Not on file Sexual Orientation [...] AM CDT Pulse 78 01/05/2024 9:00 AM TRAVELING REPAIR ACCOUNTANT Temperature 36.1 C (97 F) 05/21/2020 11:45 [...] Hepatitis B Screening 1996 Covid-19 Vaccine ( - season) 2024 10/06/2021 Breast Cancer Screening-Mammogram 12/27/2024 12/28/2023, 02/16/2022, 06/19/2020, Additional history exists Cervical Cancer Screening 04/22/2025 04/22/2024, Regular Well Visit/Exam 18-64 04/22/2025 04/22/2024, 06/23/2022, 06/07/2021, Additional history exists Influenza Vaccine (Season Ended) 2025 08/12/2015 HPV Vaccines Aged Out No longer eligi ble based on patient's age to complete this topic Pneumococcal vaccine <65 Aged Out No longer eligible based on patient's age to complete this topic Medical Devices Implanted Type Area Saw Feeder Device Identifier Shelf Expiration Date Model / Serial / Lot eyeOScor [employer] Mammomark 8ga Bowtie Identifier Biopsy Site [id number] - [id number] Implanted:Qty: 1 on 01/05/2024 at [facility] Right: Breast [employer] [id number] 12/23/2024 [id number] / / [id number] Procedures Procedure Name Priority Date/Time Associated Diagnosis Comments HIGH RISK HPV DNA DETECTION WITH GENOTYPING Routine 04/22/2024 5:07 PM CDT Screening for cervical cancer SCREENING MAMMOGRAM BILATERAL W PREM Schedule Routine, Read Routine (OP Routine) 12/28/2023 3:57 PM TRAVELING REPAIR ACCOUNTANT Screening mammogram, encounter for from Last 3 Months or Most Recently Relevant to Health Maintenance Results * High Risk HPV DNA Detection with Genotyping (Molecular component) (04/22/2024 5:07 PM CDT) HPV HR 16 Not Detected Not Detected HPV HR 18 Not Detected Not Detected [facility] HPV HR Non 16/18 Not Detected Not Detected [facility] Comment: Interpretive Data Nucleic acid amplification [...] this test have been verified by the [facility]. Correlate with separately reported cytology results, as applicable. Interpretive data last revised 23 Endocervical 04/22/2024 5:07 PM CDT 04/22/2024 10:06 PM CDT Narrative [facility] - 04/25/2024 8:17 PM CDT Clinical history and diagnosis->screening Testing type->Screening Last menstrual period (date if known)->IUD in placec Marcela Bell MD LAB BODY FLUIDS AND ST OOLS ORDERABLES Final Result [facility] [address] Department [place] [address] * (ABNORMAL) Screening Mammogram Bilateral W Perm (12/28/2023 3:57 PM TRAVELING REPAIR ACCOUNTANT) Anatomical Region Laterality Modality Breast Bilateral Mammography Narrative 12/28/2023 5:01 PM TRAVELING REPAIR ACCOUNTANT Examination: Screening Mammogram Bilateral W Prem: 12/28/23 [...] Most Recently Relevant to Health Maintenance Insurance [facility]PPO Address: [place] [address] [facility] H[facility]/PPO Address: [place] [address] ANTHEM ACCESS CHOICE [facility] H[facility]/PPO Address: [facility] [address] [place] [address] REPLACED BY [facility] ACCESS CHOICE Care Teams Radiologist Chief Of Breast Imaging Relationship Specialty Start Date End Date Radha Layton NP [address] [place] [place] [address] PCP - General Internal Medicine 02/17/25
--- OUTSIDE RECORDS SUMMARY | 2025-02-18 14:11 | XMS_ITS | Clinical Summary ---
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
--- OUTSIDE RECORDS SUMMARY | 2025-02-18 14:11 | XMS_ITS | Clinical Summary ---
Author Organization [facility] [employer] Address [address] [place] [address] Care Team Providers Care Administrative Professional Name Role Phone Ady Bautista MD Primary Care Provider Unavailabl e Source Comments [facility],non-owned Affiliates and Associated Physician Practices is amultiple site organization consisting of ambulatory clinics and hospital sitesin [place], [place], [place] and [place]. This disclosure is being madepursuant to the Care Everywhere program and may not contain all information available regarding this patient. Last updated 18.[facility] Allergies Active Allergy Reactions Criticality Noted Date Comments Diazepam Psychiatric 06/06/2013 Medications * Be aware that medications may not be up to date on this document. Alwaysverify current medications with the patient. hydrochlorothiaz jan (MICROZIDE) 12.5 MG capsuleIndicatio ns:Meniere syndrome Take 1 Cap by mouth once [...] drink = 0.6 oz pur e alcohol) Comments No Sex and Gender Information Value Date Recorded Sex Assigned at Not on file Legal Sex Female 2:26 PM CDT Gender Identity Not on file Sexual Orientation [...] 08/08/2013 11:11 AM CDT Plan of Treatment Upcoming Encounters Date Type Department Care Team (Late st Contact Info) Description 04/07/2025 8:30 AM CDT Office Visit [facility] [place] [address] [facility], [place] [address] Phong Ha MD [address] [facility] [address] [place] [address] Junie Panda, BIG DATA DEVELOPER-SOA ENGINEER [address] [facility] [address] [place] [address] Health Maintenance Due Date Last Done Comments [...] VACCINE (1 - 2023-2 5 season) 2024 DEPRESSION SCREENING [...] Spot image left breast with possible sonogram. [facility] [place] utilizes [employer] as a reminder system to notify patients [...] Spot image left breast with possible sonogram. [facility] [place] [place] utilizes [employer] as a reminder system to notify patients of their next recommended mammogram. Naldo Meraz MD MAMMO ORDERABLES Final Resu lt from Last 3 Months or Most Recently Relevant to Health Maintenance Insurance [address] [facility] BCBS/[facility] Care Teams Administrative Professional Relationship Specialty Start Date End Date Ady Bautista MD PCP - General Internal Medicine 05/28/13
--- OUTSIDE RECORDS SUMMARY | 2025-02-18 14:11 | XMS_ITS | Referral Summary ---
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 Gender Identity Not on file Sexual Orientation Not on file Last Filed Vital Signs Vital Sign Reading Time Taken Comments Blood Pressure 122/78 04/22/2024 10:00 AM CDT Pulse 78 01/05/2024 9:00 AM FILTER BED PLACER Temperature 36.1 C (97 F) 05/21/2020 11:45 AM CDT Respiratory Rate - - Oxygen Saturation 98% 05/21/2020 11:45 AM CDT Inhaled Oxygen Concentration - - Weight 110.7 kg (244 lb) 04/22/2024 10:00 AM CDT Height 172.7 cm (5' 8 ) 04/22/2024 10:00 AM CDT Body Mass Index 37.1 04/22/2024 10:00 AM CDT Plan of Treatment Not on file Medical Devices Implanted Type Area Radio Board Operator Device Identifier Shelf Expiration Date Model / Serial / Lot Flatora Inc Mammomark 8ga Bowtie Identifier Biopsy Site [id number] - [id number] Implanted:Qty: 1 on 01/05/[address] [facility] Right: Breast [employer] [id number] 12/23/2024 [id number] / / [id number] Procedures Procedure Name Priority Date/Time Associated Diagnosis Comments HIGH RISK HPV DNA DETECTION WITH GENOTYPING Routine 04/22/2024 5:07 PM CDT Screening for cervical cancer SCREENING MAMMOGRAM BILATERAL W LUIS FERNANDO Schedule Routine, Read Routine (OP Routine) 12/28/2023 3:57 PM FILTER BED PLACER Screening mammogram, encounter for from Last 3 Months or Most Recently Relevant to Health Maintenance Results * High Risk HPV DNA Detection with Genotyping (Molecular component) (04/22/2024 5:07 PM CDT) HPV HR 16 Not Detected Not Detected HPV HR 18 Not Detected Not Detected [facility] HPV HR Non 16/18 Not Detected Not Detected [facility] Comment: Interpretive Data Nucleic acid [...] have been verified by the [facility]. Correlate with separately reported cytology results, as applicable. Interpretive data last revised 23 Endocervical 04/22/2024 5:07 PM CDT 04/22/2024 10:06 PM CDT Narrative [facility] - 04/25/2024 8:17 PM CDT Clinical history and diagnosis->screening Testing type->Screening Last menstrual period (date if known)->IUD in placec Marcela Bell MD LAB BODY FLUIDS AND ST OOLS ORDERABLES Final Result [facility] [address] Department [place] [address] * (ABNORMAL) Screening Mammogram Bilateral W Luis Fernando (12/28/2023 3:57 PM FILTER BED PLACER) Anatomical Region Laterality Modality Breast Bilateral Mammography Narrative 12/28/2023 5:01 PM FILTER BED PLACER Examination: Screening Mammogram Bilateral W Luis Fernando: 12/28/23 Clinical: Screening mammogram, encounter for. Prior Study Comparisons: Comparison was made to the prior available relevant studies at the time of interpretation. Findings: Screening Mammogram Bilateral W Luis Fernando Right 1) Calcifications: There are amorphous calcifications [...] Most Recently Relevant to Health Maintenance Insurance [facility] H[facility]/PPO Address: [address] [address] [facility] HMO/PPO Address: [address] [address] [place] [address] ANTHEM ACCESS CHOICE [facility] HMO/PPO Address: [address] [address] [place] [address] ANTHEM ACCESS CHOICE Care Teams Vegetable Scullion Relationship Specialty Start Date End Date Radha Layton NP [facility] [address] [place] [address], [place] [address] PCP - General Internal Medicine 02/17/25
== END 2025-02-18 12:41 | disposition home or self-care (01) ==
LOC: ANHIMG 12:42
PROVIDERS: PCP Nurse Practitioner; Visit Provider Urology
DX: N13.2 Hydronephrosis with renal and ureteral calculous obstruction (principal); Z98.890 Other specified postprocedural states; Z96.0 Presence of urogenital implants; Z97.5 Presence of (intrauterine) contraceptive device
CPT/HCPCS: 74018; 74176

== ENCOUNTER 2025-03-18 08:44 | Outpatient (CLI) | payer BC, OTHER, SELFPAY ==
--- OUTSIDE RECORDS SUMMARY | 2025-03-18 08:56 | XMS_ITS | Clinical Summary ---
Author Organization [facility] [employer] Address [address] [place] [address] Care Team Providers Care Hotel Reservation Agent Name Role Phone Ady Bautista MD Primary Care Provider Unavailabl e Source Comments [facility] [employer],non-owned Affiliates and Associated Physician Practices is amultiple site organization consisting of ambulatory clinics and hospital sitesin [place], [place], [place] and [place]. This disclosure is being madepursuant to the Care Everywhere program and may not contain all information available regarding this patient. Last updated 18.[facility] [employer] Allergies Active Allergy Reactions Criticality Noted Date [...] Visit [facility] [address] [facility] [place] [address] Phong Ha MD [address] [facility] [address] DIV [place] [address] Junie Panda, HEALTH THERAPIST-PACKER DENTURE [address] [facility] [address] [place] [address] Health Maintenance Due Date Last Done Comments [...] Spot image left breast with possible sonogram. [facility] utilizes [employer] as a reminder system to notify patients [...] Spot image left breast with possible sonogram. [facility] utilizes [employer] as a reminder system to notify patients of their next recommended mammogram. Naldo Meraz MD MAMMO ORDERABLES Final Resu lt from Last 3 Months or Most Recently Relevant to Health Maintenance Insurance [address] [facility] BCBS/[facility] Care Teams Hotel Reservation Agent Relationship Specialty Start Date End Date Ady Bautista MD PCP - General Internal Medicine 05/28/13
--- OUTSIDE RECORDS SUMMARY | 2025-03-18 08:56 | XMS_ITS | Encounter Summary ---
Author Organization [facility] [employer] [facility] Address [address] [place] [address] Phone Care Team Providers Care Lead Mechanical Engineer Name Role Phone No, Physician Primary Care Provider [phone] Ady Bautista MD Primary Care Provider [phone] Radha Layton NP Primary Care Provider [phone] Encounter Details Date Type Department Care Team (Late st Contact Info) Description 01/11/2018 Orders Only [facility] ProviderAntonio MD [address] [place] [address] Social History Tobacco Use Types Packs/Day Years Used Date Smoking Tobacco: Never Assessed Comments Unknown Sex and Gender Information Value Date Recorded Sex Assigned at Not on file 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
--- OUTSIDE RECORDS SUMMARY | 2025-03-18 08:56 | XMS_ITS | Clinical Summary ---
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 Gender Identity Not on file Sexual [...] Most Recently Relevant to Health Maintenance Insurance [facility] OPTIONS PPO [id number] [id number] Advance Directives For more information, please contact: [phone] * Full Code (Latest Code Status on File) Date Activated Date Inactivated Comments 02/18/2016 10:51 AM 02/18/2016 4:08 PM * Full Code Date Activated Date Inactivated Comments 02/18/2016 10:48 AM 02/18/2016 10:51 AM Care Teams Geography Department Chair Relationship Specialty Start Date End Date Ady Bautista MD [address] [place] [address] PCP - General Internal Medicine 01/15/16
--- OUTSIDE RECORDS SUMMARY | 2025-03-18 08:56 | XMS_ITS | Clinical Summary ---
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
--- OUTSIDE RECORDS SUMMARY | 2025-03-18 08:56 | XMS_ITS | Clinical Summary ---
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 Gender Identity Not on file [...] AM CDT Pulse 78 01/05/2024 9:00 AM BASKET MACHINE OPERATOR Temperature 36.1 C (97 F) [...] this topic Medical Devices Implanted Type Area Gun Examiner Device Identifier Shelf Expiration Date Model / Serial / Lot TopChalkscor [employer] Mammomark 8ga Bowtie Identifier Biopsy Site [id number] - [id number] Implanted:Qty: 1 on 01/05/2024 at [facility] Right: Breast [employer] [id number] 12/23/2024 [id number] / / [id number] Procedures Procedure Name Priority Date/Time Associated Diagnosis Comments HIGH RISK HPV DNA DETECTION WITH GENOTYPING Routine 04/22/2024 5:07 PM CDT Screening for cervical cancer SCREENING MAMMOGRAM BILATERAL W PREM Schedule Routine, Read Routine (OP Routine) 12/28/2023 3:57 PM BASKET MACHINE OPERATOR Screening mammogram, encounter for from Last 3 Months or Most Recently Relevant to Health Maintenance Results * High Risk HPV DNA Detection with Genotyping (Molecular component) (04/22/2024 5:07 PM CDT) HPV HR 16 Not Detected Not Detected HPV HR 18 Not Detected Not Detected [facility] HPV HR Non 16/18 Not Detected Not Detected [facility] Comment: Interpretive Data Nucleic acid amplification for [...] this test have been verified by the [facility]. Correlate with separately reported cytology results, as applicable. Interpretive data last revised 23 Endocervical 04/22/2024 5:07 PM CDT 04/22/2024 10:06 PM CDT Narrative [facility] - 04/25/2024 8:17 PM CDT Clinical history and diagnosis->screening Testing type->Screening Last menstrual period (date if known)->IUD in placec Marcela Bell MD LAB BODY FLUIDS AND ST OOLS ORDERABLES Final Result [facility] [address] Department [place] [address] * (ABNORMAL) Screening Mammogram Bilateral W Prem (12/28/2023 3:57 PM BASKET MACHINE OPERATOR) Anatomical Region Laterality Modality Breast Bilateral Mammography Narrative 12/28/2023 5:01 PM BASKET MACHINE OPERATOR Examination: Screening Mammogram Bilateral W [...] Most Recently Relevant to Health Maintenance Insurance [facility] ANTHEM ACCESS CHOICE [facility] COUNT INCLUDES THE [facility] ACCESS CHOICE Care Teams Vocational Examiner Relationship Specialty Start Date End Date Radha Layton NP [address] [address] PCP - General Internal Medicine 02/17/25
--- OUTSIDE RECORDS SUMMARY | 2025-03-18 08:56 | XMS_ITS | Referral Summary ---
Author Organization [facility] Address [address] [place] [address] Care Team Providers Care Wound Treatment Rn Name Role Phone Radha Layton NP Primary Care Provider [phone] Allergies Active Allergy Reactions Criticality Noted Date [...] on file Legal Sex Female 9:10 AM SIMULATION EDUCATOR Gender Identity Not on file Sexual Orientation Not on file Last Filed Vital Signs Vital Sign Reading Time Taken Comments Blood Pressure 122/78 04/22/2024 10:00 AM CDT Pulse 78 01/05/2024 9:00 AM SIMULATION EDUCATOR Temperature 36.1 C (97 F) 05/21/2020 11:45 AM CDT Respiratory Rate - - Oxygen Saturation 98% 05/21/2020 11:45 AM CDT Inhaled Oxygen Concentration - - Weight 110.7 kg (244 lb) 04/22/2024 10:00 AM CDT Height 172.7 cm (5' 8 ) 04/22/2024 10:00 AM CDT Body Mass Index 37.1 04/22/2024 10:00 AM CDT Plan of Treatment Not on file Medical Devices Implanted Type Area Commercial Baking Teacher Device Identifier Shelf Expiration Date Model / Serial / Lot [employer] Mammomark 8ga Bowtie Identifier Biopsy Site [id number] - [id number] Implanted:Qty: 1 on 01/05/2024 at [facility] Right: Breast [employer] [id number] 12/23/2024 [id number] / / [id number] Procedures Procedure Name Priority Date/Time Associated Diagnosis Comments HIGH RISK HPV DNA DETECTION WITH GENOTYPING Routine 04/22/2024 5:07 PM CDT Screening for cervical cancer SCREENING MAMMOGRAM BILATERAL W LUI SFERNANDO Schedule Routine, Read Routine (OP Routine) 12/28/2023 3:57 PM SIMULATION EDUCATOR Screening mammogram, encounter for from Last 3 Months or Most Recently Relevant to Health Maintenance Results * High Risk HPV DNA Detection with Genotyping (Molecular component) (04/22/2024 5:07 PM CDT) HPV HR 16 Not Detected Not Detected HPV HR 18 Not Detected Not Detected [facility] HPV HR Non 16/18 Not Detected Not Detected [facility] Comment: Interpretive Data Nucleic acid amplification for [...] this test have been verified by the [facility]. Correlate with separately reported cytology results, as applicable. Interpretive data last revised 23 Endocervical 04/22/2024 5:07 PM CDT 04/22/2024 10:06 PM CDT Narrative [facility] - 04/25/2024 8:17 PM CDT Clinical history and diagnosis->screening Testing type->Screening Last menstrual period (date if known)->IUD in placec Marcela Bell MD LAB BODY FLUIDS AND ST OOLS ORDERABLES Final Result [facility] [address] Department [place] [address] * (ABNORMAL) Screening Mammogram Bilateral W Luis Fernando (12/28/2023 3:57 PM SIMULATION EDUCATOR) Anatomical Region Laterality Modality Breast Bilateral Mammography Narrative 12/28/2023 5:01 PM SIMULATION EDUCATOR Examination: Screening Mammogram Bilateral W Luis Fernando: [...] Recently Relevant to Health Maintenance Insurance [facility] H[facility]/PPO Address: [address] [address] [facility]/PPO Address: [address] [address] [place] [address] [employer] [facility] HMO/PPO Address: [address] [address] [place] [address] [employer] Care Teams Wound Treatment Rn Relationship Specialty Start Date End Date Radha Layton NP [facility] [address] [place] [address] [place] [address], [place] [address] PCP - General Internal Medicine 02/17/25
[2025-03-18 13:37] LABS: Cholesterol 256 mg/dL (0-200); HDL Direct 40 mg/dL; Triglycerides 341 mg/dL (<150)
[2025-03-18 13:48] LABS: LDL Cholesterol Direct 152 mg/dL
[2025-03-18 14:02] LABS: Creatinine Urine 156.6 mg/dL
[2025-03-18 14:09] LABS: MALB Creatinine Ratio 27.3 mg/g (0-30); Microalbumin Urine Random 42.7 mg/L (0-16.7)
[2025-03-18 14:32] LABS: Hemoglobin A1C 5.8 % (<5.7)
== END 2025-03-18 08:45 | disposition home or self-care (01) ==
LOC: ANHGOSHLAB 08:46
PROVIDERS: PCP Nurse Practitioner; Visit Provider Nurse Practitioner
DX: E11.9 Type 2 diabetes mellitus without complications (principal)
CPT/HCPCS: 36415; 80061; 82043; 83036

== ENCOUNTER 2025-04-21 00:48 | Day surgery (SDC) | payer BC, OTHER, SELFPAY ==
[2025-04-14 10:50] VITALS: BMI 36.5
[2025-04-21 08:42] VITALS: BP 129/58; PULSE 95; RESP 18; TEMP 36.5; O2SAT 97; BMI 35.8
[2025-04-21] MEDS: LACTATED RINGERS 1,000 ML 150 ML IV CONT (09:03)
[2025-04-21 09:09] LABS: Glucose Point of Care 117 mg/dl (65-105)
--- NOTE | 2025-04-21 09:13 | WPDANESEPPF ---
Anes - Initial Pre Proc Eval Procedure: Operation Date: 04/21/25 10:00 Proposed Procedures p Screening Colonoscopy - Jaron Frazier MD Date/Time: 04/21/25 09:13 Surgeon: Jaron Frazier MD Pre Op Diagnosis: malignant neoplasm of colon Patient Data Age: 45 Gender: F Height: 1.73 m Weight: 106.9 kg Last Vital Signs Temp 36.5 C 04/21/25 08:42 Pulse 95 04/21/25 08:42 Resp 18 04/21/25 08:42 BP 129/58 L 04/21/25 08:42 Pulse Ox 97 04/21/25 08:42 O2 Del Method Room Air 04/21/25 08:42 Allergies Allergy/AdvReac Type Severity Reaction Status Date / Time No Known Allergies Allergy Verified 04/21/25 08:49 Home Medications ?Medication ?Instructions ?Recorded ?Confirmed ?Type venlafaxine 75 mg capsule,extended 75 mg PO DAILY #90 caps 11/22/24 04/21/25 Rx release 24 hr atorvastatin 10 mg tablet (Lipitor) 10 mg PO QHS #90 tabs 12/20/24 04/21/25 Rx bupropion HCl 150 mg 24 hr tablet, 150 mg PO QAM #90 tabs 02/26/25 04/21/25 Rx extended release (Wellbutrin XL) semaglutide (weight loss) 1 mg/0.5 1 mg (0.5 mL) subcut WEEKLY #2 mL 04/18/25 04/21/25 Rx mL subcutaneous pen injector (Wegovy) Laboratory Tests 04/21/25 08:56 POC Capillary Glucose 117 H mg/dl (65-105) Patient hx anesthesia problems: none Family hx anesthesia problems: none Results Review: All pre-operative results and documents have been reviewed as part of the pre-operative evaluation. [facility] Past Medical History Medical History (Updated 02/02/25 @ 17:44 by Claude Dalton MD) Fatty liver Hyperlipidemia Type 2 diabetes mellitus IBS (irritable bowel syndrome) Fracture of right elbow Anxiety Surgical History Surgical History (Reviewed 03/21/25 @ 08:46 by Kalina Sigala [facility]) Status post cholecystectomy lap dada 06/[address] Webber. H/O section x2 Family History Family History Other Ovarian cancer Social History Social History (Updated 03/21/25 @ 08:47 by Kalina Sigala CMA) Years smoked: 7 Smoking status: Former smoker Tobacco type: cigarettes Smoking end date: 10/30/05 Alcohol intake: never Drinks per week: 3 Substance use: never Substance use type: does not use Do You Feel Safe in your Home?: Yes Lack of Transportation: No Lack of Food: Never True Current Housing: I Have Housing Concerned About Future Housing: No Difficulty Paying Gas/Electric Bills: No Difficulty Paying for Meds: No Currently Unemployed: No Education: Bachelor's Degree Difficulty w/ Childcare or Family Care: No Living arrangements: with family Occupation/Education: occupation Gender identity (if verbalized by the patient): Female Spiritual care concerns: No Anes - Eval Final PreProcedure Day of Procedure 04/21/25 09:13 Patient weight: obese Heart: regular rate and rhythm Lungs: clear to auscultation Airway: Mallampati scale class II Neurological: alert and oriented Last oral intake: >/= 8 hours ASA classification: III Emergent: no Anesthetic plan: proceed Anesthesia type and monitoring: general GIVS and standard monitoring Results Review: All pre-operative results and documents have been reviewed as part of the pre-operative evaluation. Informed Consent: The patient's anesthetic plan and its attendant risks and benefits were discussed with the patient/family/POA. Questions were solicited and answers provided to the satisfaction of the patient/family/POA.
--- NOTE | 2025-04-21 09:56 | PM.IMHP ---
H&P: HPI History of Present Illness Date/Time: 04/21/25 09:56 Chief Complaint: Screening colonoscopy Narrative: This is the patient's first colonoscopy. There are no GI symptoms and there is no family history of colorectal cancer. Review of Systems Review of Systems: All systems reviewed & are unremarkable except as noted in HPI and below PMFSH Past Medical History Medical History (Updated 02/02/25 @ 17:44 by Claude Dalton MD) Fatty liver Hyperlipidemia Type 2 diabetes mellitus IBS (irritable bowel syndrome) Fracture of right elbow Anxiety Surgical History Surgical History Status post cholecystectomy lap dada 06/[address] Webber. H/O section x2 Family History Family History Other Ovarian cancer Social History Social History (Updated 03/21/25 @ 08:47 by Kalina Sigala CMA) Years smoked: 7 Smoking status: Former smoker Tobacco type: cigarettes Smoking end date: 10/30/05 Alcohol intake: never Drinks per week: 3 Substance use: never Substance use type: does not use Do You Feel Safe in your Home?: Yes Lack of Transportation: No Lack of Food: Never True Current Housing: I Have Housing Concerned About Future Housing: No Difficulty Paying Gas/Electric Bills: No Difficulty Paying for Meds: No Currently Unemployed: No Education: Bachelor's Degree Difficulty w/ Childcare or Family Care: No Living arrangements: with family Occupation/Education: occupation Gender identity (if verbalized by the patient): Female Spiritual care concerns: No Meds Home Medications and Allergies Home Medications ?Medication ?Instructions ?Recorded ?Confirmed ?Type venlafaxine 75 mg capsule,extended 75 mg PO DAILY #90 caps 11/22/24 04/21/25 Rx release 24 hr atorvastatin 10 mg tablet (Lipitor) 10 mg PO QHS #90 tabs 12/20/24 04/21/25 Rx bupropion HCl 150 mg 24 hr tablet, 150 mg PO QAM #90 tabs 02/26/25 04/21/25 Rx extended release (Wellbutrin XL) semaglutide (weight loss) 1 mg/0.5 1 mg (0.5 mL) subcut WEEKLY #2 mL 04/18/25 04/21/25 Rx mL subcutaneous pen injector (Wegovy) Allergies Allergy/AdvReac Type Severity Reaction Status Date / Time No Known Allergies Allergy Verified 04/21/25 08:49 Vital Signs Vital Signs - 24 hr 04/21/25 08:42 Temperature 97.7 F Pulse Rate 95 Respiratory Rate 18 Blood Pressure 129/58 L Pulse Oximetry 97 Oxygen Delivery Room Air Exam Const: General: cooperative and healthy appearing Resp: Effort & Inspection: normal respiratory effort and able to speak in complete sentences Auscultation: clear to auscultation bilaterally Cardio: Rate: regular rate Rhythm: regular rhythm GI: Inspection: normal to inspection GI Palp: No No hepatosplenomegaly present Auscultation: normal bowel sounds Rectal Exam: deferred Skin: General skin exam: normal color Psych: Appearance: grossly normal Mental Status: mental status grossly normal Assessment and Plan Assessment and plan (1) Screening for colon cancer: Code(s): Z12.11 - Encounter for screening for malignant neoplasm of colon Status: Acute Assessment and Plan: The patient is deemed a good candidate for the procedure. Consent signed. Will proceed.
[2025-04-21 10:26] VITALS: BP 110/71; PULSE 87; RESP 20; O2SAT 96
[2025-04-21 10:36] VITALS: BP 108/74; PULSE 84; RESP 18; O2SAT 97
[2025-04-21 10:46] VITALS: BP 120/78; PULSE 85; RESP 16; O2SAT 98
== END 2025-04-21 10:52 | disposition home or self-care (01) ==
PROVIDERS: PCP Nurse Practitioner; Referring Provider Nurse Practitioner; Visit Provider Internal Medicine Gastroenterology
PROC: 0DJD8ZZ Inspection of Lower Intestinal Tract, Via Natural or Artificial Opening Endoscopic (ICD-10-PCS; CPT 45378; principal; 2025-04-21 10:00)
DX: Z12.11 Encounter for screening for malignant neoplasm of colon (principal); E11.9 Type 2 diabetes mellitus without complications; Z87.891 Personal history of nicotine dependence; E66.9 Obesity, unspecified; Z68.35 Body mass index [BMI] 35.0-35.9, adult
CPT/HCPCS: 45378; 82948; J2003; J2704; J7120

== ENCOUNTER 2025-06-11 12:28 | Emergency (ER) | payer BC, OTHER, SELFPAY ==
--- NOTE | ~2025-06-11 | CT_ITS ---
EXAMINATION: CT abdomen pelvis wo con DATE: 06/11/2025 13:18 INDICATION: Question of urethral stone TECHNIQUE: Computed tomography (CT) of the abdomen and pelvis was performed without intravenous contr ast. The dose-length product was 1376.08 mGy-cm. COMPARISON: CT abdomen and pelvis 02/18/2025 and 02/02/2025 FINDINGS: There are a few small reticular and bandlike opacities in the lower lungs. Cholecystectomy. Pancreas, spleen, pancreas and adrenal glands are unremarkable. Abdominal aorta is not aneurysmal. No enlarged lymph nodes in the abdomen or pelvis identified. IUD in the uterus. There is a double-J ureteral stent with the proximal loop in the left renal pelvis and the distal loo p in the bladder. Mild left-sided hydronephrosis. No ureteral stones identified. The right ureteral stent has been removed since the prior study from 02/18/2025. No urethral stones identified. There are a few subcentimeter bilateral nonobstructing renal stones si milar to the prior study. No right ureteral stones. No bladder calculi. Moderate concentric thickening of the wall of a mildly distended bladder with a small amount of surro unding fat stranding. Cystitis is possible in the appropriate clinical setting. IMPRESSION: 1. There is a double-J ureteral stent with the proximal loop in the left renal pelvis and the distal loop in the bladder. Mild left-sided hydronephrosis. No ureteral stones identified. 2. The right ureteral stent has been removed since the prior study from 02/18/2025. 3. Moderate concentric thickening of the wall of a mildly distended bladder with a small amount of willams rrounding fat stranding. Cystitis is possible in the appropriate clinical setting. Reviewed, dictated and finalized at location A. IMPRESSION: 1. There is a double-J ureteral stent with the proximal loop in the left renal pelvis and the distal loop in the bladder. Mild left-sided hydronephrosis. No u reteral stones identified. 2. The right ureteral stent has been removed since the prior study from 02/19/20 25. 3. Moderate concentric thickening of the wall of a mildly distended bladder wit h a small amount of surrounding fat stranding. Cystitis [facility].
--- OUTSIDE RECORDS SUMMARY | 2025-06-11 12:30 | XMS_ITS | Clinical Summary ---
Author Organization [facility] Address [address] [place] [address] Care Team Providers Care Marbleizing Machine Tender Name Role Phone Radha Layton NP Primary Care Provider [phone] Allergies Active Allergy Reactions Criticality Noted Date [...] 4 weeks, she will call me back. Encounters Date Type Department Care Team Description 04/03/2025 11:51 AM CDT - 04/03/2025 11:59 PM CDT Hospital Encounter [facility] [address] [place] [address] Screening mammogram, encounter for Discharge Disposition: Discharge to home or self care 04/03/2025 Results Follow-Up [facility] [address] [place] [address] Marcela Bell MD Screening Mammogram Bilateral W Luis Fernando from Last 3 Months Surgical History Surgery Date Site/Laterality Comments BREAST [...] = 0.6 oz pur e alcohol) occasionaaly Comments No Sex and Gender Information Value Date Recorded Sex Assigned at Not on file 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 Gender Identity Not on file Sexual Orientation Not on file Obstetrics History Para Term AB IAB SAB Ectopic Multiple Livin g Live Births 2 2 2 Date Outcome GA Total Labor Labor/2nd/3rd Weight Sex Type Anes PTL Esme A1 A5 Name Clin Term Term Comments C/S times 2 Last Filed Vital Signs Vital Sign Reading Time Taken Comments Blood Pressure 122/78 04/22/2024 10:00 AM CDT Pulse 78 01/05/2024 9:00 AM MANAGER SAP Temperature 36.1 C (97 F) 05/21/2020 11:45 AM CDT Respiratory Rate - - Oxygen Saturation 98% 05/21/2020 11:45 AM CDT Inhaled Oxygen Concentration - - Weight 110.7 kg (244 lb) 04/22/2024 10:00 AM CDT Height 172.7 cm (5' 8) 04/22/2024 10:00 AM CDT Body Mass Index 37.1 04/22/2024 10:00 AM CDT Plan of Treatment Health Maintenance Due Date Last Done Comments Colon Cancer Screening-Colonoscopy 1978 Depression Screening 1978 Hepatitis C Screening 1978 DTaP/Tdap/Td Vaccine (1 - Tdap) 1989 Hepatitis B Screening 1996 Covid-19 Vaccine (2 - season) 2024 10/06/2021 Cervical Cancer Screening 04/22/2025 04/22/2024, Regular Well Visit/Exam 18-64 04/22/2025 04/22/2024, 06/23/2022, 06/07/2021, Additional history exists Influenza Vaccine (#1) 2025 08/12/2015 Breast Cancer Screening-Mammogram 04/03/2026 04/03/2025, 12/28/2023, 02/16/2022, Additional history exists Pneumococcal vaccine <65 Aged Out No longer eligible based on patient's age to complete this topic Medical Devices Implanted Type Area Time Motion Analyst Device Identifier Shelf Expiration Date Model / Serial / Lot [employer] Mammomark 8ga Bowtie Identifier Biopsy Site [id number] - [id number] Implanted:Qty: 1 on 01/05/2024 at [facility] Right: Breast [employer] [id number] 12/23/2024 [id number] / / [id number] Procedures Procedure Name Priority Date/Time Associated Diagnosis Comments SCREENING MAMMOGRAM BILATERAL W LUIS FERNANDO Schedule Routine, Read Routine (OP Routine) 04/03/2025 12:14 PM CDT Screening mammogram, encounter for HIGH RISK HPV DNA DETECTION WITH GENOTYPING Routine 04/22/2024 5:07 PM CDT Screening for cervical cancer from Last 3 Months or Most Recently Relevant to Health Maintenance Results * Screening Mammogram Bilateral W Luis Fernando (04/03/2025 12:14 PM CDT) Anatomical Region Laterality Modality Breast Bilateral Mammography Impressions 04/03/2025 3:26 PM CDT Bilateral No evidence of malignancy in either breast. OVERALL BI-RADS FINAL ASSESSMENT: 2 - Benign RECOMMENDATION: Recommend bilateral annual screening mammography. Narrative 04/03/2025 3:26 PM CDT EXAMINATION: Screening Mammogram Bilateral W Luis Fernando: 04/03/2025 COMPARISON: Relevant prior studies available at the time of interpretation were reviewed. TECHNIQUE: Mammography was performed with 2D and digital breast tomosynthesis (DBT) images. CAD was utilized. BREAST PARENCHYMAL COMPOSITION: The breasts are heterogeneously dense, which may obscure small masses. FINDINGS: Bilateral There is no suspicious mass, calcification, or architectural distortion in either breast. us Self Screening Mammogram IMG MAMMO PROCEDURES Fi nal Result * High Risk HPV DNA Detection with Genotyping (Molecular component) (04/22/2024 5:07 PM CDT) HPV HR 16 Not Detected Not Detected HPV HR 18 Not Detected Not Detected [facility] HPV HR Non 16/18 Not Detected Not Detected [facility] Comment: Interpretive Data Nucleic acid amplification for [...] this test have been verified by the [facility]. Correlate with separately reported cytology results, as applicable. Interpretive data last revised 23 Endocervical 04/22/2024 5:07 PM CDT 04/22/2024 10:06 PM CDT Narrative [facility] - 04/25/2024 8:17 PM CDT Clinical history and diagnosis->screening Testing type->Screening Last menstrual period (date if known)->IUD in placec Marcela Bell MD LAB BODY FLUIDS AND ST OOLS ORDERABLES Final Result [facility] [address] Department [place] [address] from Last 3 Months or Most Recently Relevant to Health Maintenance Insurance [facility] Member Subscriber Plan / Payer (Ef fective 2022-Present) Name:Marcelina Haque Relation to Subscriber:Self Name:Marcelina Haque Payer ID:[id number] ([facility]) Type:[employer] Address: [address] Care Teams Marbleizing Machine Tender Relationship Specialty Start Date End Date Radha Layton NP [address] [place] [address] [place] [id number] PCP - General Internal Medicine 02/17/25
--- OUTSIDE RECORDS SUMMARY | 2025-06-11 12:30 | XMS_ITS | Clinical Summary ---
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 Gender Identity Not on file Sexual [...] 10:56 AM CDT Height 175.3 cm (5' 9) 02/11/2016 3:03 PM CDT Body Mass Index 33.23 02/11/2016 3:03 PM CDT Plan of Treatment Health Maintenance Due Date Last Done Comments DTAP/TDAP/TD VACCINES (1 - Tdap) 1997 HEPATITIS B VACCINES (1 of 3 - 19+ 3-dose series) 1997 HPV/Cotest (21-29) 1999 CERVICAL CANCER SCREENING 2008 HPV/Cotest (30-65) 2008 PAP SMEAR 2008 BREAST CANCER SCREENING 2018 01/05/2016, 06/09 COLORECTAL SCREENING 2023 Colorectal Cancer Screening 2023 FIT-DNA Q 3 years 2023 FIT/FOBT Q 1 year 2023 Flex Sig/CT Colonography Q 5 years 2023 INFLUENZA VACCINE (#1) 2025 08/12/2015 Procedures Procedure Name Priority Date/Time Associated Diagnosis Comments MAMMO 3D PREM DIAGNOSTIC ARTI AT W OR WO CAD Routine 01/05/2016 from Last 3 Months or Most Recently Relevant to Health Maintenance Results * MAMMO DIG DIAG BILAT W 3D PREM (01/05/2016) Anatomical Region Laterality Modality Breast Bilateral Other Kari Kraus MD MAMMO ORDERABLES Edited Result - Final from Last 3 Months or Most Recently Relevant to Health Maintenance Insurance Advance Directives For more information, please contact: [phone] * Full Code (Latest Code Status on File) Date Activated Date Inactivated Comments 02/18/2016 10:51 AM 02/18/2016 4:08 PM * Full Code Date Activated Date Inactivated Comments 02/18/2016 10:48 AM 02/18/2016 10:51 AM Care Teams Wastewater Manager Relationship Specialty Start Date End Date Ady Bautista MD [address] [place] [address] PCP - General Internal Medicine 01/15/16
--- OUTSIDE RECORDS SUMMARY | 2025-06-11 12:30 | XMS_ITS | Clinical Summary ---
Author Organization [facility] Address [address] [place] [id number] Care Team Providers Care Video Effects Editor Name Role Phone Unavailable Primary Care Provider Unavailabl e Social History Tobacco Use Types Packs/Day Years Used Date Smoking Tobacco: Never Assessed Comments Unknown Sex and Gender Information Value Date Recorded Sex Assigned at Not on file Legal Sex Female 1:24 PM C.O.D. BILLER Gender Identity Not on file Sexual Orientation Not on file Plan of Treatment Health Maintenance Due Date Last Done Comments Hepatitis C Virus (HCV) Screening 1978 TdaP Immunization 1978 Hepatitis B Immunization (1 of 3 - 19+ 3-dose series) 1997 Pap Smear 1999 Cervical Cancer Screening (CCS) 2008 HPV/Cotest 2008 Cologuard 2023 Colonoscopy 2023 Colorectal Cancer Screening 2023 Immunochemical Fecal Occult Blood 2023 SARS-COV-2 Immunization ( season) 2024 Influenza Immunization (#1) 2025 Respiratory Syncytial Virus (RSV) Immunization (Adult) (1 - 1-dose 75+ series) 2053 Human Papillomavirus (HPV) Immunization Aged Out No longer eligible b ased on patient's age to complete this topic Meningococcal Immunization (ACWY) Aged Out No longer eligible based on patient's age to complete this topic Pneumococcal Immunization Combined Aged Out No longer eligible based on patient's age to complete this topic Rotavirus Immunization Aged Out No lo nger eligible based on patient's age to complete this topic Insurance [employer] on file
--- OUTSIDE RECORDS SUMMARY | 2025-06-11 12:31 | XMS_ITS | Clinical Summary ---
Author Organization [facility] Address [address] [place] [address] Care Team Providers Care Fit Model Name Role Phone Radha Layton Bolivar HORTON-RAM PRESS OPERATOR Primary Care Provider [phone] Source Comments [facility],non-owned Affiliates and Associated Physician Practices is amultiple site organization consisting of ambulatory clinics and hospital sitesin [place], [place], [place] and [place]. This disclosure is being madepursuant to the Care Everywhere program and may not contain all information available regarding this patient. Last updated 18.[facility] Allergies Active Allergy Reactions Criticality Noted Date Comments Oxycodone EXPORT SPECIALIST Dysfunction,Naus ea and/or Vomiting,Other Medium 02/18/2016 Diazepam Other,Psychiatric Medium 06/06/2013 Confusion Medications * Be aware that medications may not be up to date on this document. Alwaysverify current medications with the patient. levonorgestrel (Mirena) 20 MCG/DAY IUD by Intrauterine route. Active buPROPion XL 24hr (Wellbutrin-XL ) 150 MG tablet Take 1 (one) tablet by mouth every morning 5 Active atorvastatin (Lipitor) 10 MG tablet Take 1 (one) tablet by mouth at bedtime 5 Active Ozempic, 1 MG/DOSE, 4 MG/3ML pen Inject 1 (one) mg subcutaneously every 7 days (once a week) 5 Active venlafaxine XR 24hr (Effexor XR) 75 MG capsule Take 1 (one) capsule by mouth once daily 4 Active Active Problems Problem Noted Date Diagnosed Date Metabolic dysfunction-associ ated steatotic liver disease (MASLD) 2025 Overview (2025): 04/07/25 Fibroscan CAP 400, LSM 5.6 kPa Cyst of breast 06/06/2013 Cyst, ovarian 06/06/2013 Benign paroxysmal positional vertigo 06/06/2013 Headache 06/06/2013 Overview (09/06/2015): Dizziness Head ache Insomnia Encounters Date Type Department Care Team Description 04/18/2025 Telephone [facility] - [address] [phone] Junie Panda, TRANSPORT SPECIALIST-CARMINE Follow-up 2025 Orders Only [facility] - [address] [address] Junie Panda, TRANSPORT SPECIALIST-RAM PRESS OPERATOR Elevated liver enzymes ; Metabolic dysfunction-associa jose steatotic liver disease (MASLD) 2025 Results Follow-Up [facility] - [address] [address] Junie Panda, TRANSPORT SPECIALIST-RAM PRESS OPERATOR 04/07/2025 10:35 AM CDT - 04/07/2025 11:59 PM CDT Hospital Encounter [facility] [address] [place] [address] Discharge Disposition: Home or Self Care 04/07/2025 9:00 AM CDT Procedure visit [facility] - [address] [phone] Phong Ha MD NAFLD (nonalcoholic fatty liver disease) ; Elevated liver enzymes 04/07/2025 8:30 AM CDT Office Visit [facility] - [address] [phone] Phong Ha MD Swanson, Stephanie N, TRANSPORT SPECIALIST-RAM PRESS OPERATOR Elevated liver enzymes (Primary Dx); Metabolic dysfunction-associa jose steatotic liver disease (MASLD); Fatigue, unspecified type 04/07/2025 Travel from Last 3 Months Family History Relation Name Status Comments Father (Age 60) mva Mother Alive Social History Tobacco Use Types Packs/Day Years Used Date Smoking Tobacco: Former Cigarettes 0.3 10 1 996 - 2006 Tobacco Cessation:Counseling Given: Not Answered Comments:1 pack per week previous Alcohol Use Standard Drinks/Week Comments Yes 0 (1 standard drink = 0.6 oz pur e alcohol) casual drinker - quit 3 mo ago Comments No Sex and Gender Information Value Date Recorded Sex Assigned at Not on file Legal Sex Female 2:26 PM CDT Gender Identity Not on file Sexual Orientation Not on file Last Filed Vital Signs Vital Sign Reading Time Taken Comments Blood Pressure 111/74 04/07/2025 9:02 AM CDT Pulse 85 04/07/2025 9:02 AM CDT Temperature 37.2 C (98.9 F) 04/07/2025 9:02 AM CDT Respiratory Rate 16 06/06/2013 3:17 PM CDT Oxygen Saturation 96% 04/07/2025 9:02 AM CDT Inhaled Oxygen Concentration - - Weight 110 kg (242 lb 9.6 oz) 04/07/2025 9:02 AM CDT Height 172.7 cm (5' 8) 04/07/2025 9:02 AM CDT Body Mass Index 36.89 04/07/2025 9:02 AM CDT Plan of Treatment Upcoming Encounters Date Type Department Care Team (Late st Contact Info) Description 10/09/2025 8:30 AM NUMERICAL CONTROL ROUTER OPERATOR Office Visit [facility] [address] [facility] [place] [address] Junie Panda APRN-CNP [address] [place] [address] [id number] [place] [address] Health Maintenance Due Date Last Done Comments COLOGUARD (AGES 45-75) - COLON CA SCREENING 1978 COLON MONITORING 1978 COLONOSCOPY - COLON CA SCREENING 1978 CT COLONOGRAPHY - COLON CA SCREENING 1978 Colorectal Cancer Screening 1978 FIT - COLON CA SCREENING 1978 FLEX SIG - COLON CA SCREENING 1978 HIV SCREENING 1993 DTAP/TDAP/TD VACCINES (1 - Tdap) 1997 HEPATITIS B VACCINE (1 of 3 - 19+ 3-dose series) 1997 PAP SMEAR 1999 COVID-19 VACCINE ( season) 2024 DEPRESSION SCREENING 10/30/2024 INFLUENZA VACCINE (#1) 2025 08/12/2015 MAMMOGRAM 04/03/2027 04/03/2025, 0602/2025, 12/28/2023, Additional history exists SCREENING FOR DIABETES 04/07/2028 04/07/2025, 2012 ZOSTER VACCINE (1 of 2) 2028 HEPATITIS C SCREENING Completed 04/07/2025 HIB VACCINE Aged Out No longer eligi ble based on patient's age to complete this topic HPV VACCINE Aged Out No longer eligi ble based on patient's age to complete this topic MENINGOCOCCAL (Group B) VACCINE SHARED DECISION-MAKING Aged Out No longer eligible based on patient's age to complete this topic MENINGOCOCCAL GROUPS A/C/Y/W VACCINE Aged Out No longer eligible based on patient's age to complete this topic PNEUMOCOCCAL VACCINE Aged Out No long er eligible based on patient's age to complete this topic Goals Goal Patient Goal Type Associated Problems Recent Progress Patient-Stated? Author Medication Management General On track( 11:14 AM CDT) No Jia Bray, RN Note: Expected end date: ongoing Interventions: Take all medications as prescribed Let your doctor know right away about any changes in your medications Make sure to request a refill of your medication at least one week prior to your last dose Make and keep follow-up appointments General On track( 11:14 AM CDT) No Jia Bray, patient relations director Procedure Name Priority Date/Time Associated Diagnosis Comments YAQUELIN HEP-2 IGG BY IFA Routine 04/07/2025 11:54 AM CDT Elevated liver enzymes SMOOTH MUSCLE ANTIBODY W REFLEX TITER Routine 04/07/2025 11:54 AM CDT Elevated liver enzymes PHOSPHATIDYLETHANOL (PETH) Routine 04/07 11:54 AM CDT Elevated liver enzymes MICROSOMAL ANTIBODY LIVER/KIDNEY Routine 04/07/2025 11:54 AM CDT Elevated liver enzymes IRON + TRANSFERRIN PANEL Routine 025 11:54 AM CDT Elevated liver enzymes IMMUNOGLOBULINS IGG/IGM/IGA PANEL Routine 04/07/2025 11:54 AM CDT Elevated liver enzymes HEPATITIS C ANTIBODY Routine 04/07/2025 11:54 AM CDT Elevated liver enzymes HEPATITIS B SURFACE ANTIBODY QUANT Routine 04/07/2025 11:54 AM CDT Elevated liver enzymes HEPATITIS B CORE ANTIBODY TOTAL Routine 04/07/2025 11:54 AM CDT Elevated liver enzymes HEPATITIS A ANTIBODY Routine 04/07/2025 11:54 AM CDT Elevated liver enzymes FERRITIN Routine 04/07/2025 11:54 AM CDT Elevated liver enzymes GGT Routine 04/07/2025 11:54 AM CDT Elevated liver enzymes CERULOPLASMIN Routine 04/07/2025 11:54 AM CDT Elevated liver enzymes YAQUELIN BLOOD SCREEN W/REFLEX TITER Routine 04/07/2025 11:54 AM CDT Elevated liver enzymes [id number] BLOOD Routine 2024 11:54 AM CDT Elevated liver enzymes COMPREHENSIVE METABOLIC PANEL Routine 04/07/2025 11:54 AM CDT Elevated liver enzymes CBC W AUTO DIFFERENTIAL Routine 04/07/20 25 11:54 AM CDT Elevated liver enzymes AL LIVER ELASTOGRAPHY Routine 04/07/2025 9:52 AM CDT Elevated liver enzymes MAMMO BILAT SCREENING Routine 08/15/2013 2:01 PM CDT Family history of breast cancer from Last 3 Months or Most Recently Relevant to Health Maintenance Results * YAQUELIN HEP-2 IGG BY IFA (04/07/2025 11:54 AM CDT) YAQUELIN HEp-2 IgG <1:80 <1:80 2025 2:59 PM CDT [facility] ([facility]) YAQUELIN Interpretive Comment See Note 2025 2:59 PM CDT [facility] ([facility]) Comment: Antinuclear antibodies by IFA negative for homogeneous, speckled, nucleolar, centromere, and nuclear dots patterns. Cytoplasmic antibodies by IFA negative for reticular/AMA, discrete/GW body-like, polar/golgi-like, rods and rings, and cytoplasmic speckled patterns. INTERPRETIVE INFORMATION: YAQUELIN Interpretive Comment Presence of antinuclear antibodies (YAQUELIN) is a hallmark feature of systemic autoimmune rheumatic diseases (SARD). However, YAQUELIN lacks diagnostic specificity and is associated with a variety of diseases (cancers, autoimmune, infectious, and inflammatory conditions) and may also occur in healthy individuals in varying prevalence. The lack of diagnostic specificity requires confirmation of positive YAQUELIN by more specific serologic tests. YAQUELIN (nuclear reactivity) positive patterns reported include centromere, homogeneous, nuclear dots, nucleolar, or speckled. YAQUELIN (cytoplasmic reactivity) positive patterns reported include reticular/AMA, discrete/GW body-like, polar/golgi-like, cytoplasmic speckled or rods and rings. All positive patterns are reported to endpoint titers (1:2560). Reported patterns may help guide differential diagnosis, although they may not be specific for individual antibodies or diseases. Mitotic staining patterns not reported. Negative results do not necessarily rule out SARD. Performed By: [facility] [address] [place] [id number] Home Planning Consultant Salesperson: Zev Mendoza MD, PhD CLIA Number: [id number] Blood BLOOD SPECIMEN / Unknown Lab Venipuncture / Unknown 04/07/2025 11:54 AM CDT 04/07/2025 12:04 PM CDT us Junie Panda TRANSPORT SPECIALIST-RAM PRESS OPERATOR LAB - SEROLOGY KALINA SCHULZ Final Result [facility] ([facility]) [address] [id number], [facility] * PHOSPHATIDYLETHANOL (PETH) (04/07/2025 11:54 AM CDT) PEth 16:0/18.1 (POPEth) <10 ng/mL 04/09/2025 5:00 PM CDT [facility] ([facility]) Comment: PEth 16:0/18:1 (POPEth) Less than 10 ng/mL............Not detected Less than 20 ng/mL............Abstinence or light alcohol consumption 20 - 200 ng/mL................Moderate alcohol consumption Greater than 200 ng/mL........Heavy alcohol consumption or chronic alcohol use (Reference: Damion Sabillon and Mavis Pascal 2018 J. Forensic Sci) PEth 16:0/18.2 (PLPEth) <10 ng/mL 04/09/2025 5:00 PM CDT [facility] ([facility]) Comment:Reference ranges are not well established. EER Peth See Note 04/09/2025 5:00 PM CDT [facility] ([facility]) Comment: Authorized individuals can access the [facility] Enhanced Report with an [employer] Connect account using the following link. Your local lab can assist you in obtaining the patient report if you don't have a Connect account. [email or web address] Interpretation PEth See Comment 04/09/2025 5:00 PM CDT [facility] ([facility]) Comment: Phosphatidylethanol (PEth) is a group of phospholipids formed in the presence of ethanol, phospholipase D and phosphatidylcholine. PEth is known to be a direct alcohol biomarker. The predominant PEth homologues are PEth 16:0/18:1 (POPEth) and PEth 16:0/18:2 (PLPEth), which account for 37-46% and 26-28% of the total PEth homologues, respectively. PEth is incorporated into the phospholipid membrane of red blood cells and has a general half-life of 4-10 days and a window of detection of 2-4 weeks. However, the window of detection is longer in individuals who chronically or excessively consume alcohol. The limit of quantification is 10 ng/mL. Serial monitoring of PEth may be helpful in monitoring alcohol abstinence over time. PEth results should be interpreted in the context of the patient's clinical and behavioral history. Patients with advanced liver disease may have falsely elevated PEth concentrations (Cecilia BRICE et al 2018, Alcoholism Clinical & Experimental Research). This test was developed and its performance characteristics determined by [facility]. It has not been cleared or approved by the U.S. Food and Drug Administration. This test was performed in a CLIA-certified laboratory and is intended for clinical purposes. Performed By: [facility] [address] [place] [address] Home Planning Consultant Salesperson: Zev Mendoza MD, PhD CLIA Number: [id number] Blood BLOOD SPECIMEN / Unknown Lab Venipuncture / Unknown 04/07/2025 11:54 AM CDT 04/07/2025 12:03 PM CDT Junie Panda TRANSPORT SPECIALIST-RAM PRESS OPERATOR LAB - CHEMISTRY ORD ERABLES Final Result [facility]) [address] [place] [address] * SMOOTH MUSCLE ANTIBODY W REFLEX TITER (04/07/2025 11:54 AM CDT) F-Actin Antibody IgG 7 0 - 19 Units 04/09/2025 7:09 AM CDT [employer] [facility] ([facility]) Comment: If F-Actin (Smooth Muscle) Antibody, IgG is negative, the Smooth Muscle Antibody titer by IFA is not performed. REFERENCE INTERVAL: F-Actin (Smooth Muscle) Antibody, IgG by H[facility]Y 19 Units or less ....... Negative 20 - 30 Units .......... Weak Positive-Suggest repeat testing in two to three weeks with fresh specimen. 31 Units or greater..... Positive-Suggestive of autoimmune hepatitis type 1 or chronic active hepatitis. F-actin IgG antibodies have been shown to have increased sensitivity for autoimmune hepatitis (AIH) but lower specificity than smooth muscle antibodies (SMA). F-actin IgG antibodies can also be seen in SMA-negative disease controls (non-AIH), especially in patients with primary biliary cirrhosis and chronic hepatitis C infections. Some patients with AIH may be SMA-positive but negative for F-actin IgG. Consider testing for SMA by IFA if suspicion for AIH is strong. Performed By: [facility] [address] [place] [address] Home Planning Consultant Salesperson: Zev Mendoza MD, PhD CLIA Number: [id number] Blood BLOOD SPECIMEN / Unknown Lab Venipuncture / Unknown 04/07/2025 11:54 AM CDT 04/07/2025 12:03 PM CDT Junie Panda TRANSPORT SPECIALIST-RAM PRESS OPERATOR LAB - SEROLOGY ORDE JAZZ Final Result [facility] ([facility]) [address] [place] [address], [facility] * HEPATITIS B SURFACE ANTIBODY QUANT (04/07/2025 11:54 AM CDT) Hepatitis B Virus Surface Antibody Non-react idalmis Non-react idalmis 04/07/2025 2:19 PM CDT [facility] Comment: < 8 mIU/mL Hepatitis B surface Antibody (HBsAb). Nonreactive for HBsAb - individual is considered not immune to Hepatitis B Virus infection. Hepatitis B Surface Antibody Quantitative <3.0 <8.0 mIU/mL 04/07/2025 2:19 PM CDT [facility] Comment: Hepatitis B Surface Antibody Numeric Result Interpretation: Nonreactive: <8.0 mIU/mL Indeterminate: 8.0 - 12.0 mIU/mL Reactive: >12.0 mIU/mL Blood BLOOD SPECIMEN / Unknown Lab Venipuncture / Unknown 04/07/2025 11:54 AM CDT 04/07/2025 12:03 PM CDT Narrative [facility] - 04/07/2025 2:19 PM CDT This assay should not be used for blood, plasma, or tissue donor screening. This assay is not recommended for neonates born to HBV-infected or suspected HBV-infected mothers. Junie Panda [facility] LAB - SEROLOGY ORDE RABLES Final Result Performing Organization Address City/[facility]/ZIP Co de Phone Number [facility] [address] [place] [address], [facility] [phone] * (ABNORMAL) YAQUELIN BLOOD SCREEN W/REFLEX TITER (04/07/2025 11:54 AM CDT) YAQUELIN IgG Detected (A) None Detected 04/09/2025 7:34 AM CDT [facility] ([facility]) Comment: Anti-Nuclear Antibodies (YAQUELIN) detected by HONEY. Additional testing to follow. INTERPRETIVE INFORMATION: Anti-Nuclear Antibodies (YAQUELIN), IgG by HONEY Antinuclear Antibodies (YAQUELIN), IgG by HONEY: YAQUELIN specimens are screened using enzyme-linked immunosorbent assay (HONEY) methodology. All HONEY results reported as Detected are further tested by indirect fluorescent assay (IFA) using HEp-2 substrate with an IgG-specific conjugate. The YAQUELIN HONEY screen is designed to detect antibodies against dsDNA, histones, SS-A (Ro), SS-B (La), Pascal, Pascal/BOLT SAWYER, Scl-70, Autumn-1, centromeric proteins, other antigens extracted from the HEp-2 cell nucleus. YAQUELIN HONEY assays have been reported to have lower sensitivities than YAQUELIN IFA for systemic autoimmune rheumatic diseases (SARD). Negative results do not necessarily rule out SARD. Performed By: [facility] [address] [place] [address] Home Planning Consultant Salesperson: Zev Mendoza MD, PhD CLIA Number: [id number] Blood BLOOD SPECIMEN / Unknown Lab Venipuncture / Unknown 04/07/2025 11:54 AM CDT 04/07/2025 12:04 PM CDT Junie Panda TRANSPORT SPECIALIST-[facility] LAB - CHEMISTRY ORD ERABLES Final Result Performing Organization Address [facility]/ZIP Co de Phone Number [facility]) [address] [place] [address], [facility] * MICROSOMAL ANTIBODY LIVER/KIDNEY (04/07/2025 11:54 AM CDT) Liver/Kidney Microsomal Antibody IgG <1:20 <1:20 2025 6:49 AM CDT [facility] ([facility]) Comment: INTERPRETIVE INFORMATION: Wymha-Jzescg-Uwvkslxsh Abs, IgG Liver-Kidney Microsome IgG antibody (anti-LKM), as detected by indirect immunofluorescent antibody (IFA) techniques, may be observed in patients with autoimmune hepatitis type 2 (AIH-2), AIH-2 associated with autoimmune kdbeeixlniqxkhnjpw-zlbwjosdsgb-eordnuynle dystrophy (APECED), viral hepatitis C or D, and some forms of drug-induced hepatitis. This IFA does not differentiate among the four types of LKM antibodies (LKM-1, LKM-2, LKM-3, and a fourth type that recognizes CY and CY antigens). Of these, anti-LKM-1 (cytochrome [id number]) IgG antibodies are considered specific for AIH-2. This test was developed and its performance characteristics determined by [facility]. It has not been cleared or approved by the US Food and Drug Administration. This test was performed in a CLIA certified laboratory and is intended for clinical purposes. Performed By: [place] [address] Home Planning Consultant Salesperson: Zev Mendoza MD, PhD CLIA Number: [id number] Blood BLOOD SPECIMEN / Unknown Lab Venipuncture / Unknown 04/07/2025 11:54 AM CDT 04/07/2025 12:03 PM CDT us Junie Panda TRANSPORT SPECIALIST-RAM PRESS OPERATOR LAB - CHEMISTRY ORD ERABLES Final Result [facility]) [address] [place] [address] * CERULOPLASMIN (04/07/2025 11:54 AM CDT) Ceruloplasmin 30 20 - 60 mg/dL 04/07/2025 2:11 PM CDT [facility] Blood BLOOD SPECIMEN / Unknown Lab Venipuncture / Unknown 04/07/2025 11:54 AM CDT 04/07/2025 12:03 PM CDT Junie Panda TRANSPORT SPECIALIST-RAM PRESS OPERATOR LAB - CHEMISTRY ORD ERABLES Final Result [facility] [address] [place] [address], [facility] [phone] * SWKEB-7-WIZNCZSRPJY BLOOD (04/07/2025 11:54 AM CDT) Bdssx-5-Zfdohc ypsin 136 90 - 200 mg/dL 04/07/2025 10:09 PM CDT [facility] Blood BLOOD SPECIMEN / Unknown Lab Venipuncture / Unknown 04/07/2025 11:54 AM CDT 04/07/2025 12:03 PM CDT Junie Panda APRN-RAM PRESS OPERATOR LAB - CHEMISTRY ORD ERABLES Final Result [facility] [address] [place] [address], [facility] [phone] * CBC WITH DIFFERENTIAL (04/07/2025 11:54 AM CDT) WBC 10.2 4.0 - 10.7 x10E9/L 04/07/2025 12:13 PM CDT [facility] RBC Count 4.89 3.90 - 5.20 x10E12/L 04/07/2025 12:13 PM CDT [facility] Hemoglobin 15.5 11.9 - 15.8 g/dL 04/07/2025 12:13 PM T [facility] Hematocrit 45.8 34.8 - 46.1 % 04/07/2025 12:13 PM T [facility] MCV 93.7 80.0 - 98.0 fL 04/07/2025 12:13 PM T [facility] MCH 31.7 26.7 - 33.6 pg 04/07/2025 12:13 PM CDT [facility] MCHC 33.8 31.7 - 36.3 g/dL 04/07/2025 12:13 PM [facility] RDW-CV 13.5 11.3 - 14.8 % 04/07/2025 12:13 PM [facility] Platelet Count 310 150 - 420 x10E9/L 04/07/2025 12:13 PM [facility] MPV 8.5 7.8 - 11.4 fL 04/07/2025 12:13 PM [facility] Neutrophil % 61.6 41.0 - 74.0 % 04/07/2025 12:13 PM [facility] Lymphocyte % 29.6 17.0 - 47.0 % 04/07/2025 12:13 PM [facility] Monocyte % 6.5 3.0 - 11.0 % 04/07/2025 12:13 PM [facility] Eosinophil % 1.3 0.0 - 7.0 % 04/07/2025 12:13 PM [facility] Basophil % 0.5 0.0 - 1.6 % 04/07/2025 12:13 PM [facility] Immature Granulocytes % 0.5 0.0 - 1.0 % 04/07/2025 12:13 PM [facility] Neutrophil Absolute 6.28 1.60 - 7.50 x10E9/L 04/07/2025 12:13 PM [facility] Lymphocyte Absolute 3.02 1.00 - 4.40 x10E9/L 04/07/2025 12:13 PM [facility] Monocyte Absolute 0.66 0.15 - 1.00 x10E9/L 04/07/2025 12:13 PM [facility] Eosinophil Absolute 0.13 0.00 - 0.60 x10E9/L 04/07/2025 12:13 PM [facility] Basophil Absolute 0.05 0.00 - 0.13 x10E9/L 04/07/2025 12:13 PM [facility] Blood BLOOD SPECIMEN / Unknown Lab Venipuncture / Unknown 04/07/2025 11:54 AM CDT 04/07/2025 12:06 PM CDT us Junie Panda TRANSPORT SPECIALIST-RAM PRESS OPERATOR LAB - HEMATOLOGY OR DERABLES Final Result [facility] [address] [place] [address], [facility] [phone] * (ABNORMAL) COMPREHENSIVE METABOLIC PANEL (04/07/2025 11:54 AM CDT) BUN 17 7 - 26 mg/dL 04/07/2025 12:58 PM [facility] Creatinine 1.03(H) 0.56 - 0.96 mg/dL 04/07/2025 12:58 PM [facility] Sodium 141 136 - 145 mmol/L 04/07/2025 12:58 PM [facility] Potassium 4.5 3.5 - 4.5 mmol/L 04/07/2025 12:58 PM [facility] Chloride 105 98 - 107 mmol/L 04/07/2025 12:58 PM [facility] CO2 25 22 - 29 mmol/L 04/07/2025 12:58 PM [facility] Glucose 102(H) 70 - 99 mg/dL 04/07/2025 12:58 PM [facility] Calcium 10.5(H) 8.4 - 10.2 mg/dL 04/07/2025 12:58 PM [facility] Protein Total 8.1 6.0 - 8.3 g/dL 04/07/2025 12:58 PM [facility] Albumin 4.9 3.4 - 5.0 g/dL 04/07/2025 12:58 PM [facility] Bilirubin Total 0.8 0.2 - 1.2 mg/dL 04/07/2025 12:58 PM [facility] Alkaline Phosphatase 106 40 - 150 U/L 04/07/2025 12:58 PM [facility] ALT 85(H) 5 - 55 U/L 04/07/2025 12:58 PM [facility] AST 53(H) 5 - 34 U/L 04/07/2025 12:58 PM [facility] Anion Gap 11 6 - 16 04/07/2025 12:58 PM CDT [facility] BUN/Creatinine Ratio 17 7 - 23 04/07/2025 12:58 PM CDT [facility] Osmolality Calculated 294 275 - 295 mOsm/kg 04/07/2025 12:58 PM CDT [facility] Albumin/Globulin Ratio 1.5 1.1 - 2.3 04/07/2025 12:58 PM T [facility] eGFR by CKD-EPI 68(L) >=90 mL/min/1.7 3 m2 04/07/2025 12:58 PM CDT [facility] Blood BLOOD SPECIMEN / Unknown Lab Venipuncture / Unknown 04/07/2025 11:54 AM CDT 04/07/2025 12:06 PM CDT Narrative [facility] - 04/07/2025 12:58 PM CDT Estimated Glomerular Filtration Rate (eGFR) calculated using the CKD-EPI Creatinine Equation (2020), per the National Kidney Foundation and [place] [employer] Nephrology recommendations. Junie Panda [facility] LAB - CHEMISTRY ORD ERABLES Final Result [address] [address], [facility] [phone] * HEPATITIS B CORE ANTIBODY TOTAL (04/07/2025 11:54 AM CDT) HBc Antibody Total Non-reacti ve Non-reacti ve 04/07/2025 1:27 PM CDT [facility] Blood BLOOD SPECIMEN / Unknown Lab Venipuncture / Unknown 04/07/2025 11:54 AM CDT 04/07/2025 12:03 PM CDT Junie Panda TRANSPORT SPECIALIST-[facility] - CHEMISTRY ORD ERABLES Final Result [address] [address], [place] [phone] * (ABNORMAL) GGT (04/07/2025 11:54 AM CDT) GGT 83(H) 9 - 64 Units/L 04/07/2025 12:58 PM CDT [facility] Blood BLOOD SPECIMEN / Unknown Lab Venipuncture / Unknown 04/07/2025 11:54 AM CDT 04/07/2025 12:06 PM CDT Junie Panda TRANSPORT SPECIALIST-RAM PRESS OPERATOR LAB - CHEMISTRY ORD ERABLES Final Result [address] [address], [place] [phone] * IMMUNOGLOBULINS IGG/IGM/IGA PANEL (04/07/2025 11:54 AM CDT) Pathologist [facility] IgG 846 767 - 1,590 mg/dL 04/07/2025 2:11 PM CDT [facility] IgM 100 37 - 286 mg/dL 04/07/2025 2:11 PM CDT [facility] IgA 118 61 - 356 mg/dL 04/07/2025 2:11 PM CDT [facility] Blood BLOOD SPECIMEN / Unknown Lab Venipuncture / Unknown 04/07/2025 11:54 AM CDT 04/07/2025 12:03 PM CDT Junie Panda TRANSPORT SPECIALIST-RAM PRESS OPERATOR LAB - CHEMISTRY ORD ERABLES Final Result [address] [address], [place] [phone] * IRON + TRANSFERRIN PANEL (04/07/2025 11:54 AM CDT) Iron 99 40 - 150 ug/dL 04/07/2025 2:11 PM CDT [facility] Transferrin 337 174 - 382 mg/dL 04/07/2025 2:11 PM CDT [facility] Transferrin Saturation % 24 16 - 50 % 04/07/2025 2:11 PM CDT [facility] TIBC Calculated 421 240 - 450 ug/dL 04/07/2025 2:11 PM CDT [facility] Blood BLOOD SPECIMEN / Unknown Lab Venipuncture / Unknown 04/07/2025 11:54 AM CDT 04/07/2025 12:03 PM CDT Junie Cecilio Panda TRANSPORT SPECIALIST-RAM PRESS OPERATOR LAB - CHEMISTRY ORD ERABLES Final Result Performing Organization Address [facility] Co de Phone Number [address] [address], [facility] [phone] * HEPATITIS C ANTIBODY (04/07/2025 11:54 AM CDT) Pathologist [facility] Hepatitis C Antibody Non-react idalmis Non-reac tive 04/07/2025 1:27 PM CDT [facility] Comment:Hepatitis C Antibody screen indicates no serologic evidence of past or current infection with Hepatitis C Virus. Patients with unexplained liver disease who are immunocompromised or suspected of having acute Hepatitis C infection may benefit from Nucleic Acid Test (STEPHANE) for Hepatitis C Viral RNA to confirm Hepatitis C status. Blood BLOOD SPECIMEN / Unknown Lab Venipuncture / Unknown 04/07/2025 11:54 AM CDT 04/07/2025 12:03 PM CDT Junie Panda TRANSPORT SPECIALIST-RAM PRESS OPERATOR LAB - CHEMISTRY ORD ERABLES Final Result Performing Organization Address [facility] Co de Phone Number [address] [address], [facility] [phone] * (ABNORMAL) HEPATITIS A ANTIBODY (04/07/2025 11:54 AM CDT) Pathologist [facility] Hepatitis A Virus Antibody Total Positive( A) Negative 04/09/2025 8:39 PM CDT [employer] ([facility]) Comment: The positive anti-HAV is consistent with recent or remote Hepatitis A infection or antibody response to HAV vaccination. False positive anti-HAV can occur. Performed By: [employer] [address] [place] [address] Home Planning Consultant Salesperson: Zev Mendoza MD, PhD CLIA Number: [id number] Blood BLOOD SPECIMEN / Unknown Lab Venipuncture / Unknown 04/07/2025 11:54 AM CDT 04/07/2025 12:03 PM CDT Junie Panda APRN-RAM PRESS OPERATOR LAB - CHEMISTRY ORD ERABLES Final Result [facility], [facility] ([facility]) [address] [place] [address], [facility] * (ABNORMAL) FERRITIN (04/07/2025 11:54 AM CDT) Ferritin 446(H) 13 - 204 ng/mL 04/07/2025 1:27 PM CDT [facility] Blood BLOOD SPECIMEN / Unknown Lab Venipuncture / Unknown 04/07/2025 11:54 AM CDT 04/07/2025 12:03 PM CDT Junie Panda APRN-[facility] - CHEMISTRY ORD ERABLES Final Result Performing Organization Address City/[facility]/ZIP Co de Phone Number [facility] [address] [place] [address], [facility] [phone] * AL LIVER ELASTOGRAPHY (04/07/2025 9:52 AM CDT) Narrative Olivier Butterfield MD - 04/07/2025 9:52 AM CDT Olivier Butterfield MD 2025 7:04 PM Diagnosis: ESTEPHANIE RN verified patient NPO for prior 3 hours. Procedure explained. Date of Exam: 04/07/2025 Liver Stiffness: (LSM, kPa) median: 5.6 IQR/Median% (ideally < 30%): 7% CAP (controlled attenuation parameter): 400 Technical Difficulty: None Ordering Provider: Junie Panda APRN Phone Fax Fibroscan interpretation: I have personally reviewed the Fibroscan report and associated tracings. The calculated Liver Stiffness Measurement (LSM, kPa) indicates that: The probability of advanced liver fibrosis is: low. The loss of ultrasound signal, (controlled attenuation parameter, CAP [dB/m]), indicates that the probability of hepatic steatosis is: high. Olivier Zavala MD The following criteria are used to indicate the probability of advanced (stage 3-4) fibrosis: < 7.0 kPa: low 7.0-8.9 kPa: low to moderate 9.0-14.9 kPa: moderate 15-20 kPa: high > 20 kPa: very high Liver stiffness > 12 kPa is associated with an increased risk of cirrhosis-related complications over the next 3-5 years (Francisco, 2022). Liver stiffness > 20 kPa is also associated with a high probability of complications of portal hypertension including varices and ascites. Liver stiffness > 50 kPa is associated with a high risk of variceal bleeding. These interpretations are based on the following published data: Francisco J, Carlosr m H, Ekstsilvia M, Amos C, Bonaenzo M, Cure S, Lisao J, Carina P, Chelsy L, Candario CM, Ketarsha S, S rhiannon Y, Sera E, Leanna A, Mattie M, Ilda J, Romi A and Ashok-Armando M. Non-invasive tests accurately stratify patients with NAFLD based on their risk of liver-related events. J Hepatol (2021) 76: 6527-9913. Aguila PJ, Dorota M, Chichi M, et al. Accuracy of FibroScan controlled attenuation parameter and liver stiffness measurement in assessing steatosis and fibrosis in patients with nonalcoholic fatty liver disease. Gastroenterology 2019;156:3793-4502. Shireen HECTOR, Venita R, Van Guy GARCIA, et al. Vibration-controlled transient elastography to assess fibrosis and steatosis in patients with nonalcoholic fatty liver disease. Clin Gastroenterol Hepatol 2019;17:156-163. Note that scores have been developed that incorporate the Fibroscan liver stiffness measurement from large cohorts of patients with liver biopsies to further refine the ability of Fibroscan to identify patients with MASH and advanced fibrosis. These include the FAST (Fibroscan-AST) score (Vinod, 2022) and the Agile3+ and Agile4 scores (Dario, 2023; Selin, 2024). Vinod JACOBS, Van Nathayder GARCIA, Teena Montgomery, Isidro A, et al. Validation of the accuracy of the FAST score for detecting patients with at-risk nonalcoholic steatohepatitis (BRYANT) in a [place] cohort and comparison to other non-invasive algorithms. PLoS ONE (2021) 17: [id number]. Dario AJ, Carl J, Jes ZM, et al. Enhanced diagnosis of advanced fibrosis and cirrhosis in individuals with NAFLD using FibroScan-based Agile scores. J Hepatol (2022) 78: 247-259. Selin et al. Vibration-controlled transient elastography scores to predict liver-related events in steatotic liver disease. JOAN (2023) 331: 7667-1031 Fibroscan LSM can also be used with laboratory parameters without formulas to assess prognosis. According to the Baveno-VII criteria (de Dariel, 202), Fibroscan LSM <=15 kPa plus a platelet count of >=623s504/L rules out clinically significant portal hypertension (sensitivity and negative predictive value >90%) in patients with compensated advanced chronic liver disease. Alexis R, Thea J, Jeannine G, Aster T, Balaji Majano on behalf of the Baveno VII Faculty. Baveno VII--Renewing consensus in portal hypertension. J Hepatol (2021) 76: 959-974 Assessing the likelihood of advanced fibrosis in patients with intermediate liver stiffness measurement (LSM) by Fibroscan (e.g., 8-15 kPa) can be improved by also calculating the FIB-4 score (Placidoyduke et al. Hepatology Communications 2019;3:1846-3355) or NAFLD Fibrosis score (Titus et al. Clinical Gastroenterology and Hepatology 2019;17:9919-9592 using routine clinical data. Notes: 1. Fibroscan cannot reliably identify earlier stages of fibrosis (ie distinguish F0 from F1 and F2) and thus a histologic stage cannot be predicted from the Fibroscan reading. 2. Liver stiffness can be increased by factors other than fibrosis including passive congestion, infiltrative processes, active alcoholism, recent moderate alcohol consumption in the 2 weeks before the exam, biliary obstruction and marked inflammation. The interpretation of the Fibroscan result provided above may not have taken such clinical factors into account. 3. Identifying steatosis by an elevated CAP score (> 250 db/m) is useful for establishing a diagnosis of steatotic liver disease. However the severity of steatosis does not correlate with liver related outcomes. Disease etiology also influences Fibroscan cutoff values for fibrosis stages and the following cutoffs have been proposed (Katherine et al, Clin Gastro Hepatol 2015; 13:27-36): Cutoffs for Stage 3 and Stage 4 fibrosis respectively: Hepatitis B: >9 and >11.7 kPa Hepatitis C: >9.5 and >12.5 kPa HCV-HIV: >11 and >14 kPa Cholestatic liver diseases: >10 and >17.9 kPa MASLD/MASH: >10 and >14 kPa CAP estimates of steatosis: normal <200 dB/m mild 200 to 250 dB/m moderate 250-290 dB/m substantial > 290 dB/m (Note that Fibroscan is not a quantitative measure of liver fat.) These criteria are estimates and may change as additional supporting data becomes available. (This additional interpretive data was last updated 11/01/24.) [email or web address] Junie Panda TRANSPORT SPECIALIST-RAM PRESS OPERATOR PROCEDURE/MINOR RM GICAL ORDERABLES Final Result from Last 3 Months Insurance [address] [facility] [place] [id number] Care Teams Fit Model Relationship Specialty Start Date End Date Radha Layton, TRANSPORT SPECIALIST-RAM PRESS OPERATOR [address] [place] [address] PCP - General Nurse Practitioner 04/07/25
--- OUTSIDE RECORDS SUMMARY | 2025-06-11 12:31 | XMS_ITS | Encounter Summary ---
Author Organization [facility] Address [address] [place] [address] Phone Care Team Providers Care Long Term Care Phlebotomist Name Role Phone No, Physician Primary Care Provider [phone] Ady Bautista MD Primary Care Provider [phone] Radha Layton NP Primary Care Provider [phone] Encounter Details Date Type Department Care Team (Late st Contact Info) Description 01/11/2018 Orders Only [facility] ProviderAntonio MD [address] [place] [address] Social History Tobacco Use Types Packs/Day Years Used Date Smoking Tobacco: Never Assessed Comments Unknown Sex and Gender Information Value Date Recorded Sex Assigned at Not on file 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
[2025-06-11 12:33] VITALS: BP 149/79; PULSE 84; RESP 16; TEMP 36.6; O2SAT 99
[2025-06-11 12:59] LABS: Hematocrit 45.3 % (37.0-47.0); Hemoglobin 15.3 g/dL (12.0-15.0); Immature Granulocyte Percent A 0.3 % (0-0.5); Lymphocytes Absolute Auto 2.82 K/mm3 (0.9-3.2); Mean Corpuscular HGB Conc 33.8 g/dl (32-36); Mean Corpuscular Hemoglobin 31.2 pg (26-34); Mean Corpuscular Volume 92.3 fl (80-100); Nucleated Red Blood Cells Absolute Auto 0.000 K/mm3 (0.0-0.012); Nucleated Red Blood Cells Perc 0.0 % (0.0-0.2); Platelet Count Result 302 k/mm3 (150-375); Red Blood Count 4.91 M/mm3 (4.2-5.4); White Blood Count 12.7 K/mm3 (4.5-10.0)
[2025-06-11 13:07] LABS: Need Manual Microscopic Reviewed
[2025-06-11 13:11] LABS: Add Urine Microscopic? YES; Appearance Urine Turbid (Clear)
[2025-06-11 13:25] LABS: Alanine Aminotransferase 92 U/L (6-35); Albumin Level 4.7 g/dL (3.5-5.1); Alkaline Phosphatase 97 U/L (38-126); Anion Gap 13 mmol/L (4-12); Aspartate Amino Transferase 66 U/L (14-36); Bilirubin,Total 0.9 mg/dL (0.2-1.3); Blood Urea Nitrogen 16 mg/dL (7-17); Calcium 10.0 mg/dL (8.4-10.2); Carbon Dioxide 19 mmol/L (22-30); Chloride 106 mmol/L (98-107); Estimated CRCL calculation 82 ml/min; Estimated Glomerular Filt Rate > 60; Glucose 105 mg/dL (65-110); Potassium 4.2 mmol/L (3.4-5.0); Sodium 138 mmol/L (137-145); Total Protein 8.0 g/dL (6.3-8.2)
[2025-06-11 16:23] VITALS: BP 151/93; PULSE 110; RESP 20; O2SAT 96
[2025-06-11 16:28] LABS: BEDSIDEPREGUCG Negative (Negative)
--- NOTE | 2025-06-11 17:21 | ED.BACK ---
HPI - Back Pain/Injury General Chief Complaint: Back Pain/Injury Stated Complaint: kidney stones Time Seen by Provider: 06/11/25 16:54 Related Data Allergies Allergy/AdvReac Type Severity Reaction Status Date / Time No Known Allergies Allergy Verified 06/11/25 12:33 Review of Systems Review of Systems: Gen.: Denies fevers or chills Eyes: Denies eye pain or visual change ENT: Denies congestion Respiratory: Denies shortness of breath or cough CV: Denies chest pain or palpitations GI: Denies abdominal pain nausea, emesis or diarrhea : urinary urgency, left flank pain Musculoskeletal: Denies back pain or muscle pain Neuro: Denies numbness, tingling, weakness or focal weakness Skin: Denies rash Except as documented, all other systems reviewed and negative [facility] Past Medical History Medical History Fatty liver Hyperlipidemia Type 2 diabetes mellitus IBS (irritable bowel syndrome) Fracture of right elbow Anxiety Surgical History Surgical History Status post cholecystectomy lap dada 06/[address] Webber. H/O section x2 Family History Family History Other Ovarian cancer Social History Social History Smoking packs per day: 0.5 Smoking cigarettes per day: 10.0 Years smoked: 7 Smoking pack-years: 3.50 Smoking status: Former smoker Tobacco type: cigarettes Smoking end date: 10/30/05 Alcohol intake: never Drinks per week: 3 Substance use: never Substance use type: does not use Do You Feel Safe in your Home?: Yes Lack of Transportation: No Lack of Food: Never True Current Housing: I Have Housing Concerned About Future Housing: No Difficulty Paying Gas/Electric Bills: No Difficulty Paying for Meds: No Currently Unemployed: No Education: Bachelor's Degree Difficulty w/ Childcare or Family Care: No Living arrangements: with family Occupation/Education: occupation Gender identity (if verbalized by the patient): Female Spiritual care concerns: No Exam Narrative: APPEARANCE: No acute distress, nontoxic, resting in bed EYES: EOMI HEENT: Normocephalic, atraumatic, OMM RESPIRATORY: No respiratory distress Clear to auscultation bilaterally with no rhonchi wheezing or rales. CARDIOVASCULAR: Regular rate and rhythm without murmurs rubs or gallops. ABDOMINAL: Soft, nontender, nondistended, no rebound or guarding. mild CVA ttp to the left. TTP to the suprapubic region MUSCULOSKELETAl: Moves all extremities. No clubbing, cyanosis or edema. NEURO: Awake and alert. Following commands, speech normal, no focal deficits SKIN:: Warm, dry. No rashes lesions or abrasions PSYCHIATRIC: Normal affect/mood, Course Vital Signs Vital signs: Vital Signs Temperature 97.8 F 06/11/25 12:33 Pulse Rate 84 06/11/25 12:33 Respiratory Rate 16 06/11/25 12:33 Blood Pressure 149/79 H 06/11/25 12:33 Pulse Oximetry 99 06/11/25 12:33 Oxygen Delivery Room Air 06/11/25 12:33 Temperature 97.8 F 06/11/25 12:33 Pulse Rate 95 06/11/25 18:34 Respiratory Rate 14 06/11/25 18:34 Blood Pressure 130/71 06/11/25 18:34 Pulse Oximetry 96 06/11/25 18:34 Oxygen Delivery Room Air 06/11/25 12:33 MDM - Back Pain/Injury MDM Narrative Medical decision making narrative: 45-year-old female presented to the ED for back pain in the setting of a recent left ureteral stent placement. Patient was rather uncomfortable on initial evaluation. She had mild CVA tenderness on the left with mild suprapubic tenderness to palpation. She has a mild leukocytosis at 12.7. CT abdomen/pelvis showed ureteral stent in place on the left with no evidence of ureterolithiasis, left mild hydronephrosis. Patient was given Toradol. On re-evaluation, patient was feeling significantly better. She has a follow-up with her urologist tomorrow which I encouraged her to go to. She will be given prescription for Toradol. She already has Flomax at home. Patient agreeable to plan. Given strict return precautions. Differential Diagnosis Differential diagnosis: Likely renal colic, pyelonephritis and thoracic back pain Lab Data Attestation: I reviewed the patient's lab results. 06/11/25 12:50 06/11/25 12:50 Labs: Lab Results 06/11/25 06/11/25 Range/Units 12:50 16:26 WBC 12.7 H (4.5-10.0) K/mm3 RBC 4.91 (4.2-5.4) M/mm3 Hgb 15.3 H (12.0-15.0) g/dL Hct 45.3 (37.0-47.0) % MCV 92.3 (80-100) fl MCH 31.2 (26-34) pg MCHC 33.8 (32-36) g/dl RDW 13.2 (11.5-14.5) % Plt Count 302 (150-375) k/mm3 MPV 8.3 (7.4-10.4) fl Immature Gran % (Auto) 0.3 (0-0.5) % Neut % (Auto) 69.3 (45.5-73.1) % Lymph % (Auto) 22.2 (18.3-44.2) % Maverick % (Auto) 6.7 (2.6-8.5) % Eos % (Auto) 1.1 (0-4.4) % Baso % (Auto) 0.4 (0.2-1.2) % Lymph # (Auto) 2.82 (0.9-3.2) K/mm3 Maverick # (Auto) 0.9 H (0.1-0.6) K/mm3 Eos # (Auto) 0.1 (0-0.3) K/mm3 Baso # (Auto) 0.1 (0.0-0.1) K/mm3 Abs Immat Gran (auto) 0.04 H (0.00-0.031) K/mm3 Absolute Neuts (auto) 8.8 H (1.3-6.7) K/mm3 Absolute Nucleated RBC 0.000 (0.0-0.012) K/mm3 Nucleated RBC % 0.0 (0.0-0.2) % Sodium 138 (137-145) mmol/L Potassium 4.2 (3.4-5.0) mmol/L Chloride 106 (98-107) mmol/L Carbon Dioxide 19 L (22-30) mmol/L Anion Gap 13 H (4-12) mmol/L BUN 16 (7-17) mg/dL Creatinine 0.98 (0.7-1.0) mg/dL Estim Creat Clear Calc 82 ml/min Estimated GFR > 60 (59 - ) Glucose 105 (65-110) mg/dL Calcium 10.0 (8.4-10.2) mg/dL Total Bilirubin 0.9 (0.2-1.3) mg/dL AST 66 H (14-36) U/L ALT 92 H (6-35) U/L Alkaline Phosphatase 97 (38-126) U/L Total Protein 8.0 (6.3-8.2) g/dL Albumin 4.7 (3.5-5.1) g/dL Urine Color Cherry H (Yellow) Urine Appearance Turbid H (Clear) Urine pH TNP Ur Specific Clinton TNP Urine Protein TNP Urine Glucose (UA) TNP Urine Ketones TNP Ur Blood (Man) TNP Urine Nitrate TNP Urine Bilirubin TNP Urine Urobilinogen TNP Add Ur Microanalysis Reviewed Leukocyte Esterase Rfl TNP Urine RBC >100 H (0-2) /hpf Urine WBC 21-50 H (0-3) /hpf Ur Squamous Epith Cells Few (Few) /hpf Urine Bacteria None seen /hpf Urine Casts 3-5 POC Urine HCG, Qual Negative (Negative) Imaging Data Radiologist's impression: Impressions Abdomen/Pelvis CT 06/11/25 13:24 IMPRESSION: 1. There is a double-J ureteral stent with the proximal loop in the left renal pelvis and the distal loop in the bladder. Mild left-sided hydronephrosis. No ureteral stones identified. 2. The right ureteral stent has been removed since the prior study from 02/18/2025. 3. Moderate concentric thickening of the wall of a mildly distended bladder with a small amount of surrounding fat stranding. Cystitis is possible in the appropriate clinical setting. Discharge Plan Discharge Clinical Impression: Renal colic on left side Patient Disposition: Home Condition: Stable Instructions: Antibiotic Form, Kidney Stones (ED) Patient Language: Amharic Prescriptions: New ketorolac 10 mg tablet 10 mg PO Q8H PRN (Reason: pain) Qty: 9 0RF Rx Instructions: maximum total duration of 5 days from all oral, intranasal, or parenteral formulations No Action atorvastatin [Lipitor] 10 mg tablet 10 mg PO QHS Qty: 90 0RF venlafaxine 75 mg capsule,extended release 24hr 75 mg PO DAILY Qty: 90 3RF bupropion HCl [Wellbutrin XL] 150 mg tablet extended release 24 hr 150 mg PO QAM Qty: 90 1RF Ozempic 2 mg/dose (8 mg/3 mL) pen injector 2 mg subcut WEEKLY Qty: 3 0RF Follow-up/Referrals: Reinier Santos MD [Physician] - 06/12/25 Radha Layton NP [Primary Care Provider] -
--- OUTSIDE RECORDS SUMMARY | 2025-06-11 17:39 | XMS_ITS | Clinical Summary ---
Author Organization [facility] Address [address] [place] [address] Care Team Providers Care Musical Instruments Assembler Name Role Phone Radha Layton Bolivar HORTON-CRIME SCENE ANALYST Primary Care Provider [phone] Source Comments [facility],non-owned Affiliates and Associated Physician Practices is amultiple site organization consisting of ambulatory clinics and hospital sitesin [place], [place], [place] and [place]. This disclosure is being madepursuant to the Care Everywhere program and may not contain all information available regarding this patient. Last updated 18.[facility] Allergies Active Allergy Reactions Criticality Noted Date Comments Oxycodone COMPUTER GRAPHIC ARTIST Dysfunction,Naus ea and/or Vomiting,Other Medium 02/18/2016 Diazepam [...] Type Department Care Team Description 04/18/2025 Telephone [facility] - [address] [address] Junie Panda, LIFE SCIENCE TECHNICAL OFFICER-CARMINE Follow-up 2025 Orders Only [facility] - [address] [address] Junie Panda, LIFE SCIENCE TECHNICAL OFFICER-CRIME SCENE ANALYST Elevated liver enzymes ; Metabolic dysfunction-associa jose steatotic liver disease (MASLD) 2025 Results Follow-Up [facility] - [address] [address] Junie Panda, LIFE SCIENCE TECHNICAL OFFICER-CRIME SCENE ANALYST 04/07/2025 10:35 AM CDT - 04/07/2025 11:59 PM CDT Hospital Encounter [facility] DRAW STATION [address] [place] [address] Discharge Disposition: Home or Self Care 04/07/2025 9:00 AM CDT Procedure visit [facility] - [address] [phone] Phong Ha MD NAFLD (nonalcoholic fatty liver disease) ; Elevated liver enzymes 04/07/2025 8:30 AM CDT Office Visit [facility] - [address] [address] Phong Ha MD Swanson, Stephanie N, LIFE SCIENCE TECHNICAL OFFICER-CRIME SCENE ANALYST Elevated liver enzymes (Primary Dx); Metabolic dysfunction-associa [...] st Contact Info) Description 10/09/2025 8:30 AM COLLEGE PROFESSOR Office Visit [facility] [place] [address] [facility] [place] [address] Junie Panda APRN-CNP [address] [place] [address] [facility] [place] [address] Health Maintenance Due Date Last Done Comments [...] track( 11:14 AM CDT) No Jia Bray, manager contact Procedure Name Priority Date/Time Associated Diagnosis Comments [...] 04/07/2025 11:54 AM CDT Elevated liver enzymes [id number] BLOOD Routine 2024 11:54 AM CDT Elevated liver enzymes COMPREHENSIVE METABOLIC PANEL Routine 04/07/2025 11:54 AM CDT Elevated liver enzymes CBC W AUTO DIFFERENTIAL Routine 04/07/20 25 11:54 AM CDT Elevated liver enzymes OR LIVER ELASTOGRAPHY Routine 04/07/2025 9:52 AM CDT Elevated liver enzymes MAMMO BILAT SCREENING Routine 08/15/2013 2:01 PM CDT Family history of breast cancer from Last 3 Months or Most Recently Relevant to Health Maintenance Results * YAQUELIN HEP-2 IGG BY IFA (04/07/2025 11:54 AM CDT) YAQUELIN HEp-2 IgG <1:80 <1:80 2025 2:59 PM CDT [facility] ([facility]) YAQUELIN Interpretive Comment See Note 2025 2:59 PM CDT [facility] ([facility]) Comment: Antinuclear antibodies by IFA negative for [...] not necessarily rule out SARD. Performed By: [facility] [employer] [facility] [address] [place] [address] Ore Digger: Zev Mendoza MD, PhD CLIA Number: [id number] Blood BLOOD SPECIMEN / Unknown Lab Venipuncture / Unknown 04/07/2025 11:54 AM CDT 04/07/2025 12:04 PM CDT us Junie Panda LIFE SCIENCE TECHNICAL OFFICER-CRIME SCENE ANALYST LAB - SEROLOGY KALINA SCHULZ Final Result [employer] ([facility]) [address] [id number], [facility] * PHOSPHATIDYLETHANOL (PETH) (04/07/2025 11:54 AM CDT) PEth 16:0/18.1 (POPEth) <10 ng/mL 04/09/2025 5:00 PM CDT [facility] ([facility]) Comment: PEth 16:0/18:1 (POPEth) Less than 10 ng/mL............Not detected Less than 20 ng/mL............Abstinence or light alcohol consumption 20 - 200 ng/mL................Moderate alcohol consumption Greater than 200 ng/mL........Heavy alcohol consumption or chronic alcohol use (Reference: Damion Sabillon and Mavis Pascal 2018 J. Forensic Sci) PEth 16:0/18.2 (PLPEth) <10 ng/mL 04/09/2025 5:00 PM CDT [facility] ([facility]) Comment:Reference ranges are not well established. EER Peth See Note 04/09/2025 5:00 PM CDT [facility] ([facility]) Comment: Authorized individuals can access the [facility] Enhanced Report with an [employer] Connect account using the following link. Your local lab can assist you in obtaining the patient report if you don't have a Connect account. [email or web address] Interpretation PEth See Comment 04/09/2025 5:00 PM CDT [facility] ([facility]) Comment: Phosphatidylethanol (PEth) is a group of [...] developed and its performance characteristics determined by [employer] [facility]. It has not been cleared or approved by the U.S. Food and Drug Administration. This test was performed in a CLIA-certified laboratory and is intended for clinical purposes. Performed By: [facility] [address] [place] [address] Ore Digger: Zev Mendoza MD, PhD CLIA Number: [id number] Blood BLOOD SPECIMEN / Unknown Lab Venipuncture / Unknown 04/07/2025 11:54 AM CDT 04/07/2025 12:03 PM CDT Junie Panda LIFE SCIENCE TECHNICAL OFFICER-CRIME SCENE ANALYST LAB - CHEMISTRY ORD ERABLES Final Result [facility]) [address] [place] [address] * SMOOTH MUSCLE ANTIBODY W REFLEX TITER (04/07/2025 11:54 AM CDT) F-Actin Antibody IgG 7 0 - 19 Units 04/09/2025 7:09 AM CDT [facility] [email or web address] ([facility]) Comment: If F-Actin (Smooth Muscle) Antibody, IgG [...] suspicion for AIH is strong. Performed By: [facility] Keep Your Pharmacy Open [address] [place] [address] Ore Digger: Zev Mendoza MD, PhD CLIA Number: [id number] Blood BLOOD SPECIMEN / Unknown Lab Venipuncture / Unknown 04/07/2025 11:54 AM CDT 04/07/2025 12:03 PM CDT Junie Panda LIFE SCIENCE TECHNICAL OFFICER-CRIME SCENE ANALYST LAB - SEROLOGY ORDE JAZZ Final Result [facility] ([facility]) [address] [place] [address], [facility] * HEPATITIS B SURFACE ANTIBODY QUANT (04/07/2025 11:54 AM CDT) Hepatitis B Virus Surface Antibody Non-react idalmis Non-react idalmis 04/07/2025 2:19 PM CDT [facility] Comment: < 8 mIU/mL Hepatitis B surface Antibody (HBsAb). Nonreactive for HBsAb - individual is considered not immune to Hepatitis B Virus infection. Hepatitis B Surface Antibody Quantitative <3.0 <8.0 mIU/mL 04/07/2025 2:19 PM CDT [facility] Comment: Hepatitis B Surface Antibody Numeric Result Interpretation: Nonreactive: <8.0 mIU/mL Indeterminate: 8.0 - 12.0 mIU/mL Reactive: >12.0 mIU/mL Blood BLOOD SPECIMEN / Unknown Lab Venipuncture / Unknown 04/07/2025 11:54 AM CDT 04/07/2025 12:03 PM CDT Narrative [facility] - 04/07/2025 2:19 PM CDT This assay should not be used for blood, plasma, or tissue donor screening. This assay is not recommended for neonates born to HBV-infected or suspected HBV-infected mothers. Junie Panda [facility] - SEROLOGY ORDE RABLES Final Result Performing Organization Address City/[facility]/ZIP Co de Phone Number [facility] [address] [place] [address], [facility] [phone] * (ABNORMAL) YAQUELIN BLOOD SCREEN W/REFLEX TITER (04/07/2025 11:54 AM CDT) YAQUELIN IgG Detected (A) None Detected 04/09/2025 7:34 AM CDT [facility] ([facility]) Comment: Anti-Nuclear Antibodies (YAQUELIN) detected by HONEY. [...] dsDNA, histones, SS-A (Ro), SS-B (La), Pascal, Pascal/HOSPITAL ADMITTING CLERK, Scl-70, Autumn-1, centromeric proteins, other antigens extracted from the HEp-2 cell nucleus. YAQUELIN HONEY assays have been reported to have lower sensitivities than YAQUELIN IFA for systemic autoimmune rheumatic diseases (SARD). Negative results do not necessarily rule out SARD. Performed By: [facility] [address] [place] [address] Ore Digger: Zev Mendoza MD, PhD CLIA Number: [id number] Blood BLOOD SPECIMEN / Unknown Lab Venipuncture / Unknown 04/07/2025 11:54 AM CDT 04/07/2025 12:04 PM CDT Junie Panda LIFE SCIENCE TECHNICAL OFFICER-[facility] - CHEMISTRY ORD ERABLES Final Result Performing Organization Address [facility]/ZIP Co de Phone Number [facility]) [address] [place] [address], [facility] * MICROSOMAL ANTIBODY LIVER/KIDNEY (04/07/2025 11:54 AM CDT) Liver/Kidney Microsomal Antibody IgG <1:20 <1:20 2025 6:49 AM CDT [facility] ([facility]) Comment: INTERPRETIVE INFORMATION: Glanm-Odoczf-Gxrxqvblo Abs, IgG Liver-Kidney Microsome IgG antibody (anti-LKM), as detected by indirect immunofluorescent antibody (IFA) techniques, may be observed in patients with autoimmune hepatitis type 2 (AIH-2), AIH-2 associated with autoimmune ozpyywcdygqerthjqu-ztifcowhdsc-tkirdzxoii dystrophy (APECED), viral hepatitis C or D, and some forms of drug-induced hepatitis. This IFA does not differentiate among the four types of LKM antibodies (LKM-1, LKM-2, LKM-3, and a fourth type that recognizes CY and CY antigens). Of these, anti-LKM-1 (cytochrome [id number]) IgG antibodies are considered specific for AIH-2. This test was developed and its performance characteristics determined by [facility]. It has not been cleared or approved by the US Food and Drug Administration. This test was performed in a CLIA certified laboratory and is intended for clinical purposes. Performed By: [place] [address] Ore Digger: Zev Mendoza MD, PhD CLIA Number: [id number] Blood BLOOD SPECIMEN / Unknown Lab Venipuncture / Unknown 04/07/2025 11:54 AM CDT 04/07/2025 12:03 PM CDT us Junie Panda LIFE SCIENCE TECHNICAL OFFICER-CRIME SCENE ANALYST LAB - CHEMISTRY ORD ERABLES Final Result [facility]) [address] [place] [address] * CERULOPLASMIN (04/07/2025 11:54 AM CDT) Ceruloplasmin 30 20 - 60 mg/dL 04/07/2025 2:11 PM CDT [facility] Blood BLOOD SPECIMEN / Unknown Lab Venipuncture / Unknown 04/07/2025 11:54 AM CDT 04/07/2025 12:03 PM CDT Junie Panda LIFE SCIENCE TECHNICAL OFFICER-CRIME SCENE ANALYST LAB - CHEMISTRY ORD ERABLES Final Result [facility] [address] [place] [address], [facility] [phone] * NKTKE-7-RHSDTQTZADG BLOOD (04/07/2025 11:54 AM CDT) Lkhsw-4-Upvzda ypsin 136 90 - 200 mg/dL 04/07/2025 10:09 PM CDT [facility] Blood BLOOD SPECIMEN / Unknown Lab Venipuncture / Unknown 04/07/2025 11:54 AM CDT 04/07/2025 12:03 PM CDT Junie Panda APRN-CRIME SCENE ANALYST LAB - CHEMISTRY ORD ERABLES Final Result [facility] [address] [place] [address], [facility] [phone] * CBC WITH DIFFERENTIAL (04/07/2025 11:54 AM CDT) WBC 10.2 4.0 - 10.7 x10E9/L 04/07/2025 12:13 PM CDT [facility] RBC Count 4.89 3.90 - 5.20 x10E12/L 04/07/2025 12:13 PM CDT [facility] Hemoglobin 15.5 11.9 - 15.8 g/dL 04/07/2025 12:13 PM T [facility] Hematocrit 45.8 34.8 - 46.1 % 04/07/2025 12:13 PM T [facility] MCV 93.7 80.0 - 98.0 fL 04/07/2025 12:13 PM T [facility] MCH 31.7 26.7 - 33.6 pg 04/07/2025 12:13 PM CDT [facility] MCHC 33.8 31.7 - 36.3 g/dL 04/07/2025 12:13 PM [facility] RDW-CV 13.5 11.3 - 14.8 % 04/07/2025 12:13 PM [facility] Platelet Count 310 150 - 420 x10E9/L 04/07/2025 12:13 PM [facility] MPV 8.5 7.8 - 11.4 fL 04/07/2025 12:13 PM [facility] Neutrophil % 61.6 41.0 - 74.0 % 04/07/2025 12:13 PM [facility] Lymphocyte % 29.6 17.0 - 47.0 % 04/07/2025 12:13 PM [facility] Monocyte % 6.5 3.0 - 11.0 % 04/07/2025 12:13 PM [facility] Eosinophil % 1.3 0.0 - 7.0 % 04/07/2025 12:13 PM [facility] Basophil % 0.5 0.0 - 1.6 % 04/07/2025 12:13 PM [facility] Immature Granulocytes % 0.5 0.0 - 1.0 % 04/07/2025 12:13 PM [facility] Neutrophil Absolute 6.28 1.60 - 7.50 x10E9/L 04/07/2025 12:13 PM [facility] Lymphocyte Absolute 3.02 1.00 - 4.40 x10E9/L 04/07/2025 12:13 PM [facility] Monocyte Absolute 0.66 0.15 - 1.00 x10E9/L 04/07/2025 12:13 PM [facility] Eosinophil Absolute 0.13 0.00 - 0.60 x10E9/L 04/07/2025 12:13 PM [facility] Basophil Absolute 0.05 0.00 - 0.13 x10E9/L 04/07/2025 12:13 PM [facility] Blood BLOOD SPECIMEN / Unknown Lab Venipuncture / Unknown 04/07/2025 11:54 AM CDT 04/07/2025 12:06 PM CDT us Junie Panda LIFE SCIENCE TECHNICAL OFFICER-CRIME SCENE ANALYST LAB - HEMATOLOGY OR DERABLES Final Result [facility] [address] [place] [address], [facility] [phone] * (ABNORMAL) COMPREHENSIVE METABOLIC PANEL (04/07/2025 11:54 AM CDT) BUN 17 7 - 26 mg/dL 04/07/2025 12:58 PM [facility] Creatinine 1.03(H) 0.56 - 0.96 mg/dL 04/07/2025 12:58 PM [facility] Sodium 141 136 - 145 mmol/L 04/07/2025 12:58 PM [facility] Potassium 4.5 3.5 - 4.5 mmol/L 04/07/2025 12:58 PM [facility] Chloride 105 98 - 107 mmol/L 04/07/2025 12:58 PM [facility] CO2 25 22 - 29 mmol/L 04/07/2025 12:58 PM [facility] Glucose 102(H) 70 - 99 mg/dL 04/07/2025 12:58 PM [facility] Calcium 10.5(H) 8.4 - 10.2 mg/dL 04/07/2025 12:58 PM [facility] Protein Total 8.1 6.0 - 8.3 g/dL 04/07/2025 12:58 PM [facility] Albumin 4.9 3.4 - 5.0 g/dL 04/07/2025 12:58 PM [facility] Bilirubin Total 0.8 0.2 - 1.2 mg/dL 04/07/2025 12:58 PM [facility] Alkaline Phosphatase 106 40 - 150 U/L 04/07/2025 12:58 PM [facility] ALT 85(H) 5 - 55 U/L 04/07/2025 12:58 PM [facility] AST 53(H) 5 - 34 U/L 04/07/2025 12:58 PM [facility] Anion Gap 11 6 - 16 04/07/2025 12:58 PM CDT [facility] BUN/Creatinine Ratio 17 7 - 23 04/07/2025 12:58 PM CDT [facility] Osmolality Calculated 294 275 - 295 mOsm/kg 04/07/2025 12:58 PM CDT [facility] Albumin/Globulin Ratio 1.5 1.1 - 2.3 04/07/2025 12:58 PM T [facility] eGFR by CKD-EPI 68(L) >=90 mL/min/1.7 3 m2 04/07/2025 12:58 PM CDT [facility] Blood BLOOD SPECIMEN / Unknown Lab Venipuncture / Unknown 04/07/2025 11:54 AM CDT 04/07/2025 12:06 PM CDT Narrative [facility] - 04/07/2025 12:58 PM CDT Estimated Glomerular Filtration Rate (eGFR) calculated using the CKD-EPI Creatinine Equation (2020), per the National Kidney Foundation and [place] Society of Nephrology recommendations. Junie [facility] - CHEMI[facility] ORD ERABLES Final Result [address] [address], [facility] [phone] * HEPATITIS B CORE ANTIBODY TOTAL (04/07/2025 11:54 AM CDT) HBc Antibody Total Non-reacti ve Non-reacti ve 04/07/2025 1:27 PM CDT [facility] Blood BLOOD SPECIMEN / Unknown Lab Venipuncture / Unknown 04/07/2025 11:54 AM CDT 04/07/2025 12:03 PM CDT Junie Panda LIFE SCIENCE TECHNICAL OFFICER-[facility] - CHEMISTRY ORD ERABLES Final Result [address] [address], [place] [phone] * (ABNORMAL) GGT (04/07/2025 11:54 AM CDT) GGT 83(H) 9 - 64 Units/L 04/07/2025 12:58 PM CDT [facility] Blood BLOOD SPECIMEN / Unknown Lab Venipuncture / Unknown 04/07/2025 11:54 AM CDT 04/07/2025 12:06 PM CDT Junie Panda LIFE SCIENCE TECHNICAL OFFICER-CRIME SCENE ANALYST LAB - CHEMISTRY ORD ERABLES Final Result [address] [address], [place] [phone] * IMMUNOGLOBULINS IGG/IGM/IGA PANEL (04/07/2025 11:54 AM CDT) Pathologist [facility] IgG 846 767 - 1,590 mg/dL 04/07/2025 2:11 PM CDT [facility] IgM 100 37 - 286 mg/dL 04/07/2025 2:11 PM CDT [facility] IgA 118 61 - 356 mg/dL 04/07/2025 2:11 PM CDT [facility] Blood BLOOD SPECIMEN / Unknown Lab Venipuncture / Unknown 04/07/2025 11:54 AM CDT 04/07/2025 12:03 PM CDT Junie Panda LIFE SCIENCE TECHNICAL OFFICER-CRIME SCENE ANALYST LAB - CHEMISTRY ORD ERABLES Final Result [address] [address], [place] [phone] * IRON + TRANSFERRIN PANEL (04/07/2025 11:54 AM CDT) Iron 99 40 - 150 ug/dL 04/07/2025 2:11 PM CDT [facility] Transferrin 337 174 - 382 mg/dL 04/07/2025 2:11 PM CDT [facility] Transferrin Saturation % 24 16 - 50 % 04/07/2025 2:11 PM CDT [facility] TIBC Calculated 421 240 - 450 ug/dL 04/07/2025 2:11 PM CDT [facility] Blood BLOOD SPECIMEN / Unknown Lab Venipuncture / Unknown 04/07/2025 11:54 AM CDT 04/07/2025 12:03 PM CDT Junie Cecilio Panda LIFE SCIENCE TECHNICAL OFFICER-CRIME SCENE ANALYST LAB - CHEMISTRY ORD ERABLES Final Result Performing Organization Address [facility] Co de Phone Number [address] [address], [facility] [phone] * HEPATITIS C ANTIBODY (04/07/2025 11:54 AM CDT) Pathologist [facility] Hepatitis C Antibody Non-react idalmis Non-reac tive 04/07/2025 1:27 PM CDT [facility] Comment:Hepatitis C Antibody screen indicates no serologic [...] CDT 04/07/2025 12:03 PM CDT Junie Panda LIFE SCIENCE TECHNICAL OFFICER-CRIME SCENE ANALYST LAB - CHEMISTRY ORD ERABLES Final Result Performing Organization Address [facility] Co de Phone Number [address] [address], [facility] [phone] * (ABNORMAL) HEPATITIS A ANTIBODY (04/07/2025 11:54 AM CDT) Pathologist [facility] Hepatitis A Virus Antibody Total Positive( A) Negative 04/09/2025 8:39 PM CDT [facility] ([facility]) Comment: The positive anti-HAV is consistent with recent or remote Hepatitis A infection or antibody response to HAV vaccination. False positive anti-HAV can occur. Performed By: [facility] [employer] [facility] [address] [place] [address] Ore Digger: Zev Mendoza MD, PhD CLIA Number: [id number] Blood BLOOD SPECIMEN / Unknown Lab Venipuncture / Unknown 04/07/2025 11:54 AM CDT 04/07/2025 12:03 PM CDT Junie Panda APRN-CRIME SCENE ANALYST LAB - CHEMISTRY ORD ERABLES Final Result [facility] ([facility]) [address] [place] [address], [facility] * (ABNORMAL) FERRITIN (04/07/2025 11:54 AM CDT) Ferritin 446(H) 13 - 204 ng/mL 04/07/2025 1:27 PM CDT [facility] [employer] [facility] Blood BLOOD SPECIMEN / Unknown Lab Venipuncture / Unknown 04/07/2025 11:54 AM CDT 04/07/2025 12:03 PM CDT Junie Panda APRN-[facility] - CHEMISTRY ORD ERABLES Final Result Performing Organization Address City/[facility]/ZIP Co de Phone Number [facility] [address] [place] [address], [facility] [phone] * OR LIVER ELASTOGRAPHY (04/07/2025 9:52 AM CDT) Narrative [...] of liver-related events. J Hepatol (2021) 76: 2803-1162. Aguila PJ, Dorota M, Chichi M, et al. Accuracy of FibroScan controlled attenuation parameter and liver stiffness measurement in assessing steatosis and fibrosis in patients with nonalcoholic fatty liver disease. Gastroenterology 2019;156:3914-9660. Shireen HECTOR, Venita R, Van Guy GARCIA, [...] at-risk nonalcoholic steatohepatitis (BRYANT) in a [place] cohort and comparison to other non-invasive algorithms. PLoS ONE (2021) 17: b4873657. Dario AJ, Carl J, Jes ZM, et al. Enhanced diagnosis of advanced fibrosis and cirrhosis in individuals with NAFLD using FibroScan-based Agile scores. J Hepatol (2022) 78: 247-259. Selin et al. Vibration-controlled transient elastography scores to predict liver-related events in steatotic liver disease. JOAN (2023) 331: 8354-7518 Fibroscan LSM can also be used with laboratory parameters without formulas to assess prognosis. According to the Baveno-VII criteria (de Dariel, 202), Fibroscan LSM <=15 kPa plus a platelet count of >=527t818/L rules out clinically significant portal hypertension (sensitivity [...] FIB-4 score (Placidoyduke et al. Hepatology Communications 2019;3:6535-3517) or NAFLD Fibrosis score (Titus et al. Clinical Gastroenterology and Hepatology 2019;17:2271-2972 using routine clinical data. Notes: 1. Fibroscan [...] additional interpretive data was last updated 11/01/24.) [email or web address] Junie Panda LIFE SCIENCE TECHNICAL OFFICER-CRIME SCENE ANALYST PROCEDURE/MINOR RM GICAL ORDERABLES Final Result from Last 3 Months Insurance [address] [facility] [place] [address] Care Teams Musical Instruments Assembler Relationship Specialty Start Date End Date Radha Layton, LIFE SCIENCE TECHNICAL OFFICER-CRIME SCENE ANALYST [address] [place] [address] PCP - General Nurse Practitioner 04/07/25
--- OUTSIDE RECORDS SUMMARY | 2025-06-11 17:39 | XMS_ITS | Clinical Summary ---
Author Organization [facility] Address [address] [place] [address] Phone Care Team Providers Care Mechanical Engineering Officer Name Role Phone Ady Bautista MD Primary Care Provider [phone] Allergies Active Allergy Reactions Criticality Noted Date [...] be different from the original. 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
--- OUTSIDE RECORDS SUMMARY | 2025-06-11 17:39 | XMS_ITS | Encounter Summary ---
Author Organization [facility] Address [address] [place] [address] Phone Care Team Providers Care Conventions Assistant Name Role Phone No, Physician Primary Care Provider [phone] Ady Bautista MD Primary Care Provider [phone] Radha Layton NP Primary Care Provider [phone] Encounter Details Date Type Department Care Team (Late st Contact Info) Description 01/11/[address] 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
--- OUTSIDE RECORDS SUMMARY | 2025-06-11 17:39 | XMS_ITS | Clinical Summary ---
Author Organization [facility] Address [address] [place] [address] Care Team Providers Care Six Pack Loader Operator Name Role Phone Radha Layton NP Primary Care Provider [phone] Allergies Active Allergy Reactions Criticality Noted Date [...] - 04/03/2025 11:59 PM CDT Hospital Encounter [facility] - Imaging [address] [place] [address] Screening mammogram, encounter for Discharge Disposition: Discharge to home or self care 04/03/2025 Results Follow-Up [facility] [address] [place] [address] Marcela Bell MD Screening Mammogram [...] on file Legal Sex Female 9:10 AM COUNTER FORMER Gender Identity Not on file Sexual Orientation [...] AM CDT Pulse 78 01/05/2024 9:00 AM COUNTER FORMER Temperature 36.1 C (97 F) 05/21/2020 11:45 [...] this topic Medical Devices Implanted Type Area Employee Relations Specialist Device Identifier Shelf Expiration Date Model / Serial / Lot [employer] Mammomark 8ga Bowtie Identifier Biopsy Site [id number] - [id number] Implanted:Qty: 1 on 01/05/2024 at [facility] Right: Breast [employer] [id number] 12/23/2024 [id number] / / [id number] D Procedures Procedure Name Priority Date/Time Associated [...] HR 18 Not Detected Not Detected [facility] HPV HR Non 16/18 Not Detected Not Detected [facility] Comment: Interpretive Data Nucleic acid [...] CDT 04/22/2024 10:06 PM CDT Narrative [facility] - 04/25/2024 8:17 PM CDT Clinical history and diagnosis->screening Testing type->Screening Last menstrual period (date if known)->IUD in placec Marcela Bell MD LAB BODY FLUIDS AND ST OOLS ORDERABLES Final Result [facility] [address] [place] [address] from Last 3 Months or Most Recently Relevant to Health Maintenance Insurance [facility] [employer] CHO[employer] Member Subscriber Plan / Payer (Ef fective 2022-Present) Name:Marcelina Haque Relation to Subscriber:Self Name:Marcelina Haque Payer ID:[id number] ([facility]) Type:[employer] Address: [address] Care Teams Six Pack Loader Operator Relationship Specialty Start Date End Date Radha Layton NP [address] [place] [address] [place] [id number] PCP - General Internal Medicine 02/17/25
--- OUTSIDE RECORDS SUMMARY | 2025-06-11 17:39 | XMS_ITS | Clinical Summary ---
Author Organization [facility] Address [address] [place] [id number] Care Team Providers Care Delivery Recruiter Name Role Phone Unavailable Primary Care Provider Unavailabl e Social History Tobacco Use Types Packs/Day Years Used Date Smoking Tobacco: Never Assessed Comments Unknown Sex and Gender Information Value Date Recorded Sex Assigned at Not on file Legal Sex Female 1:24 PM DIRECTOR OF NEIGHB[facility]HOOD [facility] Gender Identity Not on file Sexual Orientation [...]
[2025-06-11] MEDS: KETOROLAC 30 MG/ML VIAL (*BKC) IV PUSH (17:41)
[2025-06-11] MEDS: ONDANSETRON INJ 4 MG/2 ML VIAL IV PUSH (17:41)
[2025-06-11 18:34] VITALS: BP 130/71; PULSE 95; RESP 14; O2SAT 96
== END 2025-06-11 18:38 | disposition home or self-care (01) ==
PROVIDERS: Registered Nurse; Emergency Provider Student in an Organized Health Care Education/Training Program; PCP Nurse Practitioner
DX: N20.0 Calculus of kidney (principal); Z87.891 Personal history of nicotine dependence; E78.5 Hyperlipidemia, unspecified; E11.9 Type 2 diabetes mellitus without complications
CPT/HCPCS: 36415; 74176; 80053; 81001; 81025; 85025; 87086; 96374; 96375; 99284; J1885; J2405

== ENCOUNTER 2025-06-14 07:32 | Outpatient (CLI) | payer BC, OTHER, SELFPAY ==
--- OUTSIDE RECORDS SUMMARY | 2025-06-14 07:37 | XMS_ITS | Clinical Summary ---
Author Organization [facility] [employer] Address [address] [place] [address] Care Team Providers Care Prime Broker Name Role Phone Radha Layton Bolivar HORTON-CLIENT SERVICE AND CONSULTING MANAGER Primary Care Provider [phone] [facility] [employer] [facility] [facility],non-owned Affiliates and Associated Physician Practices is amultiple site organization consisting of ambulatory clinics and hospital sitesin [place], [place], [place] and [place]. This disclosure is being madepursuant to the Care Everywhere program and may not contain all information available regarding this patient. Last updated 18.[facility] [employer] [facility] [employer] Allergies Active Allergy Reactions Criticality Noted Date Comments Oxycodone BOILER TECHNICIAN Dysfunction,Naus ea and/or Vomiting,Other Medium 02/18/2016 Diazepam [...] Type Department Care Team Description 04/18/2025 Telephone [facility] - [address] [address] Junie Panda, REINFORCED IRONWORKER-CARMINE Follow-up 2025 Orders Only [facility] - [address] [address] Junie Panda, REINFORCED IRONWORKER-CLIENT SERVICE AND CONSULTING MANAGER Elevated liver enzymes ; Metabolic dysfunction-associa jose steatotic liver disease (MASLD) 2025 Results Follow-Up [facility] - [address] [address] Junie Panda, REINFORCED IRONWORKER-CLIENT SERVICE AND CONSULTING MANAGER 04/07/2025 10:35 AM CDT - 04/07/2025 11:59 PM CDT Hospital Encounter [facility] OP DRAW STATION [address] [place] [address] Discharge Disposition: Home or Self Care 04/07/2025 9:00 AM CDT Procedure visit [facility] - [address] [phone] Phong Ha MD NAFLD (nonalcoholic fatty liver disease) ; Elevated liver enzymes 04/07/2025 8:30 AM CDT Office Visit [facility] - [address] [address] Phong Ha MD Swanson, Stephanie N, REINFORCED IRONWORKER-CLIENT SERVICE AND CONSULTING MANAGER Elevated liver enzymes (Primary Dx); Metabolic dysfunction-associa [...] st Contact Info) Description 10/09/2025 8:30 AM COMPLIANCE REVIEW SPECIALIST Office Visit [facility] GI [address] [facility], [place] [address] Junie Panda APRN-CNP [address] [place] [address] [facility] [place] [address] Health Maintenance Due Date Last Done Comments [...] track( 11:14 AM CDT) No Jia Bray, health editor Procedure Name Priority Date/Time Associated Diagnosis Comments [...] 04/07/2025 11:54 AM CDT Elevated liver enzymes [id number] BLOOD Routine 2024 11:54 AM CDT Elevated liver enzymes COMPREHENSIVE METABOLIC PANEL Routine 04/07/2025 11:54 AM CDT Elevated liver enzymes CBC W AUTO DIFFERENTIAL Routine 04/07/20 25 11:54 AM CDT Elevated liver enzymes NC LIVER ELASTOGRAPHY Routine 04/07/2025 9:52 AM CDT Elevated liver enzymes MAMMO BILAT SCREENING Routine 08/15/2013 2:01 PM CDT Family history of breast cancer from Last 3 Months or Most Recently Relevant to Health Maintenance Results * YAQUELIN HEP-2 IGG BY IFA (04/07/2025 11:54 AM CDT) YAQUELIN HEp-2 IgG <1:80 <1:80 2025 2:59 PM CDT [facility] ([facility]) YAQUELIN Interpretive Comment See Note 2025 2:59 PM CDT [facility] ([facility]) Comment: Antinuclear antibodies by IFA negative for [...] not necessarily rule out SARD. Performed By: [facility] [address] [place] [address] Coding Clerks Supervisor: Zev Mendoza MD, PhD CLIA Number: [id number] Blood BLOOD SPECIMEN / Unknown Lab Venipuncture / Unknown 04/07/2025 11:54 AM CDT 04/07/2025 12:04 PM CDT us Junie Panda REINFORCED IRONWORKER-CLIENT SERVICE AND CONSULTING MANAGER LAB - SEROLOGY KALINA SCHULZ Final Result [facility] ([facility]) [address] [id number], [facility] * PHOSPHATIDYLETHANOL (PETH) (04/07/2025 11:54 AM CDT) PEth 16:0/18.1 (POPEth) <10 ng/mL 04/09/2025 5:00 PM CDT [facility] ([facility]) Comment: PEth 16:0/18:1 (POPEth) Less than 10 ng/mL............Not detected Less than 20 ng/mL............Abstinence or light alcohol consumption 20 - 200 ng/mL................Moderate alcohol consumption Greater than 200 ng/mL........Heavy alcohol consumption or chronic alcohol use (Reference: Damion Sabillon and Mavis Pascal 2018 J. Forensic Sci) PEth 16:0/18.2 (PLPEth) <10 ng/mL 04/09/2025 5:00 PM CDT [facility] ([facility]) Comment:Reference ranges are not well established. EER Peth See Note 04/09/2025 5:00 PM CDT [facility] ([facility]) Comment: Authorized individuals can access the [facility] Enhanced Report with an [email or web address] Connect account using the following link. Your local lab can assist you in obtaining the patient report if you don't have a Connect account. [email or web address] Interpretation PEth See Comment 04/09/2025 5:00 PM CDT [facility] ([facility]) Comment: Phosphatidylethanol (PEth) is a group of [...] developed and its performance characteristics determined by [facility]. It has not been cleared or approved by the U.S. Food and Drug Administration. This test was performed in a CLIA-certified laboratory and is intended for clinical purposes. Performed By: [facility] [address] [place] [address] Coding Clerks Supervisor: Zev Mendoza MD, PhD CLIA Number: [id number] Blood BLOOD SPECIMEN / Unknown Lab Venipuncture / Unknown 04/07/2025 11:54 AM CDT 04/07/2025 12:03 PM CDT Junie Panda REINFORCED IRONWORKER-CLIENT SERVICE AND CONSULTING MANAGER LAB - CHEMISTRY ORD ERABLES Final Result [facility]) [address] [place] [address] * SMOOTH MUSCLE ANTIBODY W REFLEX TITER (04/07/2025 11:54 AM CDT) F-Actin Antibody IgG 7 0 - 19 Units 04/09/2025 7:09 AM CDT [employer] ([facility]) Comment: If F-Actin (Smooth Muscle) Antibody, IgG [...] suspicion for AIH is strong. Performed By: [facility] [address] [place] [address] Coding Clerks Supervisor: Zev Mendoza MD, PhD CLIA Number: [id number] Blood BLOOD SPECIMEN / Unknown Lab Venipuncture / Unknown 04/07/2025 11:54 AM CDT 04/07/2025 12:03 PM CDT Junie Panda REINFORCED IRONWORKER-CLIENT SERVICE AND CONSULTING MANAGER LAB - SEROLOGY ORDE JAZZ Final Result [facility] ([facility]) [address] [place] [address], [facility] * HEPATITIS B SURFACE ANTIBODY QUANT (04/07/2025 11:54 AM CDT) Hepatitis B Virus Surface Antibody Non-react idalmis Non-react idalmis 04/07/2025 2:19 PM CDT [facility] Comment: < 8 mIU/mL Hepatitis B surface Antibody (HBsAb). Nonreactive for HBsAb - individual is considered not immune to Hepatitis B Virus infection. Hepatitis B Surface Antibody Quantitative <3.0 <8.0 mIU/mL 04/07/2025 2:19 PM CDT [facility] Comment: Hepatitis B Surface Antibody Numeric Result Interpretation: Nonreactive: <8.0 mIU/mL Indeterminate: 8.0 - 12.0 mIU/mL Reactive: >12.0 mIU/mL Blood BLOOD SPECIMEN / Unknown Lab Venipuncture / Unknown 04/07/2025 11:54 AM CDT 04/07/2025 12:03 PM CDT Narrative [facility] - 04/07/2025 2:19 PM CDT This assay should not be used for blood, plasma, or tissue donor screening. This assay is not recommended for neonates born to HBV-infected or suspected HBV-infected mothers. Junie Panda [facility] - SEROLOGY ORDE RABLES Final Result Performing Organization Address City/[facility]/ZIP Co de Phone Number [facility] [address] [place] [address], [facility] [phone] * (ABNORMAL) YAQUELIN BLOOD SCREEN W/REFLEX TITER (04/07/2025 11:54 AM CDT) YAQUELIN IgG Detected (A) None Detected 04/09/2025 7:34 AM CDT [facility] ([facility]) Comment: Anti-Nuclear Antibodies (YAQUELIN) detected by HONEY. [...] dsDNA, histones, SS-A (Ro), SS-B (La), Pascal, Pascal/FLUX TUBE ATTENDANT, Scl-70, Autumn-1, centromeric proteins, other antigens extracted from the HEp-2 cell nucleus. YAQUELIN HONEY assays have been reported to have lower sensitivities than YAQUELIN IFA for systemic autoimmune rheumatic diseases (SARD). Negative results do not necessarily rule out SARD. Performed By: [facility] [address] [place] [address] Coding Clerks Supervisor: Zev Mendoza MD, PhD CLIA Number: [id number] Blood BLOOD SPECIMEN / Unknown Lab Venipuncture / Unknown 04/07/2025 11:54 AM CDT 04/07/2025 12:04 PM CDT Junie Panda REINFORCED IRONWORKER-[facility] - CHEMISTRY ORD ERABLES Final Result Performing Organization Address [facility]/ZIP Co de Phone Number [facility]) [address] [place] [address], [facility] * MICROSOMAL ANTIBODY LIVER/KIDNEY (04/07/2025 11:54 AM CDT) Liver/Kidney Microsomal Antibody IgG <1:20 <1:20 2025 6:49 AM CDT [facility] ([facility]) Comment: INTERPRETIVE INFORMATION: Hacim-Vxgpcl-Qbbhyhjhp Abs, IgG Liver-Kidney Microsome IgG antibody (anti-LKM), as detected by indirect immunofluorescent antibody (IFA) techniques, may be observed in patients with autoimmune hepatitis type 2 (AIH-2), AIH-2 associated with autoimmune vtvxybhgurqbssyjfc-jlyaoflweya-zgrbdpgwma dystrophy (APECED), viral hepatitis C or D, and some forms of drug-induced hepatitis. This IFA does not differentiate among the four types of LKM antibodies (LKM-1, LKM-2, LKM-3, and a fourth type that recognizes CY and CY antigens). Of these, anti-LKM-1 (cytochrome [id number]) IgG antibodies are considered specific for AIH-2. This test was developed and its performance characteristics determined by [facility]. It has not been cleared or approved by the US Food and Drug Administration. This test was performed in a CLIA certified laboratory and is intended for clinical purposes. Performed By: [place] [address] Coding Clerks Supervisor: Zev Mendoza MD, PhD CLIA Number: [id number] Blood BLOOD SPECIMEN / Unknown Lab Venipuncture / Unknown 04/07/2025 11:54 AM CDT 04/07/2025 12:03 PM CDT us Junie Panda REINFORCED IRONWORKER-CLIENT SERVICE AND CONSULTING MANAGER LAB - CHEMISTRY ORD ERABLES Final Result [facility]) [address] [place] [address] * CERULOPLASMIN (04/07/2025 11:54 AM CDT) Ceruloplasmin 30 20 - 60 mg/dL 04/07/2025 2:11 PM CDT [facility] Blood BLOOD SPECIMEN / Unknown Lab Venipuncture / Unknown 04/07/2025 11:54 AM CDT 04/07/2025 12:03 PM CDT Junie Panda REINFORCED IRONWORKER-CLIENT SERVICE AND CONSULTING MANAGER LAB - CHEMISTRY ORD ERABLES Final Result [facility] [address] [place] [address], [facility] [phone] * MEGAA-0-RKFMPNDVBOD BLOOD (04/07/2025 11:54 AM CDT) Tqqko-0-Jorskp ypsin 136 90 - 200 mg/dL 04/07/2025 10:09 PM CDT [facility] Blood BLOOD SPECIMEN / Unknown Lab Venipuncture / Unknown 04/07/2025 11:54 AM CDT 04/07/2025 12:03 PM CDT Junie Panda APRN-CLIENT SERVICE AND CONSULTING MANAGER LAB - CHEMISTRY ORD ERABLES Final Result [facility] [address] [place] [address], [facility] [phone] * CBC WITH DIFFERENTIAL (04/07/2025 11:54 AM CDT) WBC 10.2 4.0 - 10.7 x10E9/L 04/07/2025 12:13 PM CDT [facility] RBC Count 4.89 3.90 - 5.20 x10E12/L 04/07/2025 12:13 PM CDT [facility] Hemoglobin 15.5 11.9 - 15.8 g/dL 04/07/2025 12:13 PM T [facility] Hematocrit 45.8 34.8 - 46.1 % 04/07/2025 12:13 PM T [facility] MCV 93.7 80.0 - 98.0 fL 04/07/2025 12:13 PM T [facility] MCH 31.7 26.7 - 33.6 pg 04/07/2025 12:13 PM CDT [facility] MCHC 33.8 31.7 - 36.3 g/dL 04/07/2025 12:13 PM [facility] RDW-CV 13.5 11.3 - 14.8 % 04/07/2025 12:13 PM [facility] Platelet Count 310 150 - 420 x10E9/L 04/07/2025 12:13 PM [facility] MPV 8.5 7.8 - 11.4 fL 04/07/2025 12:13 PM [facility] Neutrophil % 61.6 41.0 - 74.0 % 04/07/2025 12:13 PM [facility] Lymphocyte % 29.6 17.0 - 47.0 % 04/07/2025 12:13 PM [facility] Monocyte % 6.5 3.0 - 11.0 % 04/07/2025 12:13 PM [facility] Eosinophil % 1.3 0.0 - 7.0 % 04/07/2025 12:13 PM [facility] Basophil % 0.5 0.0 - 1.6 % 04/07/2025 12:13 PM [facility] Immature Granulocytes % 0.5 0.0 - 1.0 % 04/07/2025 12:13 PM [facility] Neutrophil Absolute 6.28 1.60 - 7.50 x10E9/L 04/07/2025 12:13 PM [facility] Lymphocyte Absolute 3.02 1.00 - 4.40 x10E9/L 04/07/2025 12:13 PM [facility] Monocyte Absolute 0.66 0.15 - 1.00 x10E9/L 04/07/2025 12:13 PM [facility] Eosinophil Absolute 0.13 0.00 - 0.60 x10E9/L 04/07/2025 12:13 PM [facility] Basophil Absolute 0.05 0.00 - 0.13 x10E9/L 04/07/2025 12:13 PM [facility] Blood BLOOD SPECIMEN / Unknown Lab Venipuncture / Unknown 04/07/2025 11:54 AM CDT 04/07/2025 12:06 PM CDT us Junie Panda REINFORCED IRONWORKER-CLIENT SERVICE AND CONSULTING MANAGER LAB - HEMATOLOGY OR DERABLES Final Result [facility] [address] [place] [address], [facility] [phone] * (ABNORMAL) COMPREHENSIVE METABOLIC PANEL (04/07/2025 11:54 AM CDT) BUN 17 7 - 26 mg/dL 04/07/2025 12:58 PM [facility] Creatinine 1.03(H) 0.56 - 0.96 mg/dL 04/07/2025 12:58 PM [facility] Sodium 141 136 - 145 mmol/L 04/07/2025 12:58 PM [facility] Potassium 4.5 3.5 - 4.5 mmol/L 04/07/2025 12:58 PM [facility] Chloride 105 98 - 107 mmol/L 04/07/2025 12:58 PM [facility] CO2 25 22 - 29 mmol/L 04/07/2025 12:58 PM [facility] Glucose 102(H) 70 - 99 mg/dL 04/07/2025 12:58 PM [facility] Calcium 10.5(H) 8.4 - 10.2 mg/dL 04/07/2025 12:58 PM [facility] Protein Total 8.1 6.0 - 8.3 g/dL 04/07/2025 12:58 PM [facility] Albumin 4.9 3.4 - 5.0 g/dL 04/07/2025 12:58 PM [facility] Bilirubin Total 0.8 0.2 - 1.2 mg/dL 04/07/2025 12:58 PM [facility] Alkaline Phosphatase 106 40 - 150 U/L 04/07/2025 12:58 PM [facility] ALT 85(H) 5 - 55 U/L 04/07/2025 12:58 PM [facility] AST 53(H) 5 - 34 U/L 04/07/2025 12:58 PM [facility] Anion Gap 11 6 - 16 04/07/2025 12:58 PM CDT [facility] BUN/Creatinine Ratio 17 7 - 23 04/07/2025 12:58 PM CDT [facility] Osmolality Calculated 294 275 - 295 mOsm/kg 04/07/2025 12:58 PM CDT [facility] Albumin/Globulin Ratio 1.5 1.1 - 2.3 04/07/2025 12:58 PM T [facility] eGFR by CKD-EPI 68(L) >=90 mL/min/1.7 3 m2 04/07/2025 12:58 PM CDT [facility] Blood BLOOD SPECIMEN / Unknown Lab Venipuncture / Unknown 04/07/2025 11:54 AM CDT 04/07/2025 12:06 PM CDT Narrative [facility] - 04/07/2025 12:58 PM CDT Estimated Glomerular Filtration Rate (eGFR) calculated using the CKD-EPI Creatinine Equation (2020), per the National Kidney Foundation and [employer] Society of Nephrology recommendations. [facility] - CHEMISTRY ORD ERABLES Final Result [address] [address], [facility] [phone] * HEPATITIS B CORE ANTIBODY TOTAL (04/07/2025 11:54 AM CDT) HBc Antibody Total Non-reacti ve Non-reacti ve 04/07/2025 1:27 PM CDT [facility] Blood BLOOD SPECIMEN / Unknown Lab Venipuncture / Unknown 04/07/2025 11:54 AM CDT 04/07/2025 12:03 PM CDT Junie Panda REINFORCED IRONWORKER-[facility] - CHEMISTRY ORD ERABLES Final Result [address] [address], [place] [phone] * (ABNORMAL) GGT (04/07/2025 11:54 AM CDT) GGT 83(H) 9 - 64 Units/L 04/07/2025 12:58 PM CDT [facility] Blood BLOOD SPECIMEN / Unknown Lab Venipuncture / Unknown 04/07/2025 11:54 AM CDT 04/07/2025 12:06 PM CDT Junie Panda REINFORCED IRONWORKER-CLIENT SERVICE AND CONSULTING MANAGER LAB - CHEMISTRY ORD ERABLES Final Result [address] [address], [place] [phone] * IMMUNOGLOBULINS IGG/IGM/IGA PANEL (04/07/2025 11:54 AM CDT) Pathologist [facility] IgG 846 767 - 1,590 mg/dL 04/07/2025 2:11 PM CDT [facility] IgM 100 37 - 286 mg/dL 04/07/2025 2:11 PM CDT [facility] IgA 118 61 - 356 mg/dL 04/07/2025 2:11 PM CDT [facility] Blood BLOOD SPECIMEN / Unknown Lab Venipuncture / Unknown 04/07/2025 11:54 AM CDT 04/07/2025 12:03 PM CDT Junie Panda REINFORCED IRONWORKER-CLIENT SERVICE AND CONSULTING MANAGER LAB - CHEMISTRY ORD ERABLES Final Result [address] [address], [place] [phone] * IRON + TRANSFERRIN PANEL (04/07/2025 11:54 AM CDT) Iron 99 40 - 150 ug/dL 04/07/2025 2:11 PM CDT [facility] Transferrin 337 174 - 382 mg/dL 04/07/2025 2:11 PM CDT [facility] Transferrin Saturation % 24 16 - 50 % 04/07/2025 2:11 PM CDT [facility] TIBC Calculated 421 240 - 450 ug/dL 04/07/2025 2:11 PM CDT [facility] Blood BLOOD SPECIMEN / Unknown Lab Venipuncture / Unknown 04/07/2025 11:54 AM CDT 04/07/2025 12:03 PM CDT Junie Cecilio Panda REINFORCED IRONWORKER-CLIENT SERVICE AND CONSULTING MANAGER LAB - CHEMISTRY ORD ERABLES Final Result Performing Organization Address [facility] Co de Phone Number [address] [address], [facility] [phone] * HEPATITIS C ANTIBODY (04/07/2025 11:54 AM CDT) Pathologist [facility] Hepatitis C Antibody Non-react idalmis Non-reac tive 04/07/2025 1:27 PM CDT [facility] Comment:Hepatitis C Antibody screen indicates no serologic [...] CDT 04/07/2025 12:03 PM CDT Junie Panda REINFORCED IRONWORKER-CLIENT SERVICE AND CONSULTING MANAGER LAB - CHEMISTRY ORD ERABLES Final Result Performing Organization Address [facility] Co de Phone Number [address] [address], [facility] [phone] * (ABNORMAL) HEPATITIS A ANTIBODY (04/07/2025 11:54 AM CDT) Pathologist [facility] Hepatitis A Virus Antibody Total Positive( A) Negative 04/09/2025 8:39 PM CDT [facility] ([facility]) Comment: The positive anti-HAV is consistent with recent or remote Hepatitis A infection or antibody response to HAV vaccination. False positive anti-HAV can occur. Performed By: [facility] [address] [place] [address] Coding Clerks Supervisor: Zev Mendoza MD, PhD CLIA Number: [id number] Blood BLOOD SPECIMEN / Unknown Lab Venipuncture / Unknown 04/07/2025 11:54 AM CDT 04/07/2025 12:03 PM CDT Junie Panda APRN-CLIENT SERVICE AND CONSULTING MANAGER LAB - CHEMISTRY ORD ERABLES Final Result [facility] ([facility]) [address] [place] [address], [facility] * (ABNORMAL) FERRITIN (04/07/2025 11:54 AM CDT) Ferritin 446(H) 13 - 204 ng/mL 04/07/2025 1:27 PM CDT [facility] Blood BLOOD SPECIMEN / Unknown Lab Venipuncture / Unknown 04/07/2025 11:54 AM CDT 04/07/2025 12:03 PM CDT Junie Panda APRN-[facility] LAB - CHEMISTRY ORD ERABLES Final Result Performing Organization Address City/[facility]/ZIP Co de Phone Number [facility] [address] [place] [address], [facility] [phone] * NC LIVER ELASTOGRAPHY (04/07/2025 9:52 AM CDT) Narrative [...] of liver-related events. J Hepatol (2021) 76: 4148-7129. Aguila PJ, Dorota M, Chichi M, et al. Accuracy of FibroScan controlled attenuation parameter and liver stiffness measurement in assessing steatosis and fibrosis in patients with nonalcoholic fatty liver disease. Gastroenterology 2019;156:9778-2735. Shireen HECTOR, Venita R, Van Guy GARCIA, [...] 2023; Selin, 2024). Vinod JACOBS, Van Nathayder AGRCIA, Teena Montgomery, Isidro A, et al. Validation of the accuracy of the FAST score for detecting patients with at-risk nonalcoholic steatohepatitis (BRYANT) in a [place] cohort and comparison to other non-invasive algorithms. PLoS ONE (2021) 17: [id number]. Dario AJ, Carl J, Jes ZM, et al. Enhanced diagnosis of advanced fibrosis and cirrhosis in individuals with NAFLD using FibroScan-based Agile scores. J Hepatol (2022) 78: 247-259. Selin et al. Vibration-controlled transient elastography scores to predict liver-related events in steatotic liver disease. JOAN (2023) 331: 0435-2743 Fibroscan LSM can also be used with laboratory parameters without formulas to assess prognosis. According to the Baveno-VII criteria (de Dariel, 202), Fibroscan LSM <=15 kPa plus a platelet count of >=080p472/L rules out clinically significant portal hypertension (sensitivity [...] FIB-4 score (Placidoyduke et al. Hepatology Communications 2019;3:4789-4992) or NAFLD Fibrosis score (Titus et al. Clinical Gastroenterology and Hepatology 2019;17:6630-6189 using routine clinical data. Notes: 1. Fibroscan [...] additional interpretive data was last updated 11/01/24.) [email or web address] Junie Panda REINFORCED IRONWORKER-CLIENT SERVICE AND CONSULTING MANAGER PROCEDURE/MINOR RM GICAL ORDERABLES Final Result from Last 3 Months Insurance [address] [facility] [place] [phone] Care Teams Prime Broker Relationship Specialty Start Date End Date Radha Layton, REINFORCED IRONWORKER-CLIENT SERVICE AND CONSULTING MANAGER [address] [place] [address] PCP - General Nurse Practitioner 04/07/25
--- OUTSIDE RECORDS SUMMARY | 2025-06-14 07:37 | XMS_ITS | Clinical Summary ---
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
--- OUTSIDE RECORDS SUMMARY | 2025-06-14 07:37 | XMS_ITS | Encounter Summary ---
Author Organization [facility] [employer] [facility] Address [address] [place] [address] Phone Care Team Providers Care Primary Teacher Name Role Phone No, Physician Primary Care Provider [phone] Ady Bautista MD Primary Care Provider [phone] Radha Layton NP Primary Care Provider [phone] Encounter Details Date Type Department Care Team (Late st Contact Info) Description 01/11/2018 Orders Only [facility] ProviderAntonio MD [address] [place] [address] Social History Tobacco Use Types Packs/Day Years Used Date Smoking Tobacco: Never Assessed Comments Unknown Sex and Gender Information Value Date Recorded Sex Assigned at Not on file 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
--- OUTSIDE RECORDS SUMMARY | 2025-06-14 07:37 | XMS_ITS | Clinical Summary ---
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
--- OUTSIDE RECORDS SUMMARY | 2025-06-14 07:37 | XMS_ITS | Clinical Summary ---
Author Organization [facility] Address [address] [place] [address] Care Team Providers Care Mold Bunch Trimmer Name Role Phone Radha Layton NP Primary Care Provider [phone] Allergies Active Allergy Reactions Criticality Noted Date [...] - 04/03/2025 11:59 PM CDT Hospital Encounter [facility] - Imaging [address] [place] [address] Screening mammogram, encounter for Discharge Disposition: Discharge to home or self care 04/03/2025 Results Follow-Up [facility] [address] [place] [address] Marcela Bell MD Screening Mammogram [...] on file Legal Sex Female 9:10 AM COMBO WELDER Gender Identity Not on file Sexual Orientation [...] AM CDT Pulse 78 01/05/2024 9:00 AM COMBO WELDER Temperature 36.1 C (97 F) 05/21/2020 11:45 [...] this topic Medical Devices Implanted Type Area Barrel Assembler Helper Device Identifier Shelf Expiration Date Model / Serial / Lot Property Partner Inc Mammomark 8ga Bowtie Identifier Biopsy Site [id number] - [id number] Implanted:Qty: 1 on 01/05/2024 at [facility] Right: Breast [employer] [id number] 12/23/2024 [id number] / / [id number] D Procedures Procedure Name Priority Date/Time Associated [...] HPV HR 18 Not Detected Not Detected [facility] HPV HR Non 16/18 Not Detected Not Detected [facility] Comment: Interpretive Data Nucleic acid [...] this test have been verified by the [facility]. Correlate with separately reported cytology results, as applicable. Interpretive data last revised 23 Endocervical 04/22/2024 5:07 PM CDT 04/22/2024 10:06 PM CDT Narrative [facility] - 04/25/2024 8:17 PM CDT Clinical history and diagnosis->screening Testing type->Screening Last menstrual period (date if known)->IUD in placec Marcela Bell MD LAB BODY FLUIDS AND ST OOLS ORDERABLES Final Result [facility] [address] Department [place] [address] from Last 3 Months or Most Recently Relevant to Health Maintenance Insurance [facility] H[facility]/PPO Address: [address] [address] [facility] H[facility]/PPO Address: [address] [address] [place] [address] [employer] [facility] ACC[employer] CHO[employer] Member Subscriber Plan / Payer (Ef fective 2022-Present) Name:Marcelina Haque Relation to Subscriber:Self Name:Marcelina Haque Payer ID:[id number] ([facility]) Type:[place] Address: [id number] [facility] HMO/PPO Address: [address] [address] [place] [address] Care Teams Mold Bunch Trimmer Relationship Specialty Start Date End Date Radha Layton NP [address] [facility] [address] C[address] [place] [address] PCP - General Internal Medicine 02/17/25
--- NOTE | 2025-06-14 07:40 | ECG_ITS ---
Test Date: 2025-06-14 07:49:44 Measurements Intervals [place] Rate: 71 P: 40 WA: 133 QRS: 47 QRSD: 94 T: 73 QT: 396 QTc: 430 Interpretive Statements SINUS RHYTHM MINIMAL Q WAVES- INFERIOR LEADS BASELINE ARTIFACT- I, II, III, AVR, AVL, AVF BORDERLINE ECG No previous ECG available for comparison Electronically Signed On 06-14-2025 08:40:51 CDT by Laron Dimas D.O.
== END 2025-06-14 07:33 | disposition home or self-care (01) ==
LOC: ANHCARD 07:35
PROVIDERS: PCP Nurse Practitioner; Visit Provider Anesthesiology
DX: E78.5 Hyperlipidemia, unspecified (principal); E11.9 Type 2 diabetes mellitus without complications; R94.31 Abnormal electrocardiogram [ECG] [EKG]
CPT/HCPCS: 93005

== ENCOUNTER 2025-06-16 01:38 | Day surgery (SDC) | payer BC, OTHER, SELFPAY ==
[2025-06-13 09:39] VITALS: BMI 35.0
--- NOTE | 2025-06-13 09:41 | PC.NURSE ---
Report to the Outpatient Waiting Room, entrance under the green pavilion located off [facility], at time _1100_ on date _[id number]_. Planned Procedure Time: _1pm_.? Time changes happen often and if your time is changed the preop area will call you the afternoon before. - You and your visitor will be asked to self-screen and do not enter if you have any COVID symptoms. Please call surgeon if you need to reschedule. - A mask is optional within the hospital at this time. Patients may have clear liquids (water, carbonated beverages, clear teas, apple juice) until 3 hours prior to surgery with a maximum of 20 ounces. - No food from midnight until time of surgery and no smoking, or chewing tobacco (or any form of nicotine). No chewing gum, candy or mints. Take only the following medications with a SIP of water on the morning of surgery: __Venlafaxine, Bupropion___ DO NOT STOP ANY OF YOUR OTHER PRESCRIPTION MEDICATIONS PRIOR TO SURGERY EXCEPT THE FOLLOWING Hold all vitamins and supplements for 3 days per anesthesiologist. Medications to discontinue per physician Please ask Dr Santos office before taking any more Ketorolac. Date to take last dose Please no make-up, nail kinyarwanda, hairspray, perfume, deodorant, or body powder the day of surgery.? No jewelry (including any body piercings) or valuables the day of surgery, leave them at home.? Please take a shower or bath the night before, or the morning of, surgery with an antibacterial soap.? Wear comfortable, loose fitting clothing.? - Jewelry must be removed prior to entering the operating room.? Rings and piercings that are not removed may be cut off. - The hospital will not accept responsibility for valuables.? - Please leave all valuables, including medications, at home the day of surgery. If you are going home after surgery, a licensed coach tour driver must drive you home.? - NO public transportation without another adult if you receive anesthesia. - We recommend that an adult stay with you for 24 hours following discharge. - We also recommend that you do not drive, make important decision, drink alcoholic beverages, or take any drugs that were not prescribed by your health care provider for at least 24 hours after your discharge time. Follow any additional instructions given to you from your surgeon. Telephone instructions given to ___Marcelina__and asked if any additional questions and then verbalized understanding. Patient advised to call surgeon office or pre surgery nurse liaison [phone] if any additional questions.
--- NOTE | ~2025-06-16 | XR_ITS ---
EXAM: XR retrograde pyelo w/stent LT - 06/16/2025 13:10 CDT History: 45 years old Female with LEFT RETRO STENT/RETRO Fluoroscopy time: 11.8 seconds FINDINGS/ IMPRESSION: Multiple fluoroscopic images of double-J ureteral stent placement in the left collecting system. Reviewed, dictated and finalized at location A.
--- OUTSIDE RECORDS SUMMARY | 2025-06-16 01:41 | XMS_ITS | Clinical Summary ---
Author Organization [facility] Address [address] [place] [address] Care Team Providers Care Service Captain Name Role Phone Radha Layton Bolivar HORTON-BLOCKMAN Primary Care Provider [phone] Source Comments [facility],non-owned Affiliates and Associated Physician Practices is amultiple site organization consisting of ambulatory clinics and hospital sitesin [place], [place], [place] and [place]. This disclosure is being madepursuant to the Care Everywhere program and may not contain all information available regarding this patient. Last updated 18.[facility] Allergies Active Allergy Reactions Criticality Noted Date Comments Oxycodone TACTICAL AIR CONTROL PARTY Dysfunction,Naus ea and/or Vomiting,Other Medium 02/18/2016 Diazepam [...] Type Department Care Team Description 04/18/2025 Telephone [facility] - [address] [address] Junie Panda, NETWORK TECHNOLOGY INSTRUCTOR-CARMINE Follow-up 2025 Orders Only [facility] - [address] [address] Junie Panda, NETWORK TECHNOLOGY INSTRUCTOR-BLOCKMAN Elevated liver enzymes ; Metabolic dysfunction-associa jose steatotic liver disease (MASLD) 2025 Results Follow-Up [facility] - [address] [address] Junie Panda, NETWORK TECHNOLOGY INSTRUCTOR-BLOCKMAN 04/07/2025 10:35 AM CDT - 04/07/2025 11:59 PM CDT Hospital Encounter [facility] OP DRAW STATION [address] [place] [address] Discharge Disposition: Home or Self Care 04/07/2025 9:00 AM CDT Procedure visit [facility] - [address] [phone] Phong Ha MD NAFLD (nonalcoholic fatty liver disease) ; Elevated liver enzymes 04/07/2025 8:30 AM CDT Office Visit [facility] - [address] [address] Phong Ha MD Swanson, Stephanie N, NETWORK TECHNOLOGY INSTRUCTOR-BLOCKMAN Elevated liver enzymes (Primary Dx); Metabolic dysfunction-associa [...] st Contact Info) Description 10/09/2025 8:30 AM BELLOWS CHARGER ASSEMBLER Office Visit [facility] - GI [address] [facility], [place] [address] Junie Panda APRN-CNP [address] [place] [address] [address] [place] [address] Health Maintenance Due Date Last Done Comments [...] track( 11:14 AM CDT) No Jia Bray, body finisher Procedure Name Priority Date/Time Associated Diagnosis Comments [...] 04/07/2025 11:54 AM CDT Elevated liver enzymes IPTMA-1-KOSQMQNAMKH BLOOD Routine 2024 11:54 AM CDT Elevated liver enzymes COMPREHENSIVE METABOLIC PANEL Routine 04/07/2025 11:54 AM CDT Elevated liver enzymes CBC W AUTO DIFFERENTIAL Routine 04/07/20 25 11:54 AM CDT Elevated liver enzymes MD LIVER ELASTOGRAPHY Routine 04/07/2025 9:52 AM CDT Elevated liver enzymes MAMMO BILAT SCREENING Routine 08/15/2013 2:01 PM CDT Family history of breast cancer from Last 3 Months or Most Recently Relevant to Health Maintenance Results * YAQUELIN HEP-2 IGG BY IFA (04/07/2025 11:54 AM CDT) YAQUELIN HEp-2 IgG <1:80 <1:80 2025 2:59 PM CDT [facility] ([facility]) YAQUELIN Interpretive Comment See Note 2025 2:59 PM CDT [facility] ([facility]) Comment: Antinuclear antibodies by IFA negative [...] not necessarily rule out SARD. Performed By: [facility] [address] [place] [address] Carrier Loader: Zev Mendoza MD, PhD CLIA Number: [id number] Blood BLOOD SPECIMEN / Unknown Lab Venipuncture / Unknown 04/07/2025 11:54 AM CDT 04/07/2025 12:04 PM CDT us Junie Panda NETWORK TECHNOLOGY INSTRUCTOR-BLOCKMAN LAB - SEROLOGY KALINA SCHULZ Final Result [facility] ([facility]) [address] [id number], [facility] * PHOSPHATIDYLETHANOL (PETH) (04/07/2025 11:54 AM CDT) PEth 16:0/18.1 (POPEth) <10 ng/mL 04/09/2025 5:00 PM CDT [facility] ([facility]) Comment: PEth 16:0/18:1 (POPEth) Less than 10 ng/mL............Not detected Less than 20 ng/mL............Abstinence or light alcohol consumption 20 - 200 ng/mL................Moderate alcohol consumption Greater than 200 ng/mL........Heavy alcohol consumption or chronic alcohol use (Reference: Damion Sabillon and Mavis Pascal 2018 J. Forensic Sci) PEth 16:0/18.2 (PLPEth) <10 ng/mL 04/09/2025 5:00 PM CDT [facility] ([facility]) Comment:Reference ranges are not well established. EER Peth See Note 04/09/2025 5:00 PM CDT [facility] ([facility]) Comment: Authorized individuals can access the [facility] Enhanced Report with an [email or web address] Connect account using the following link. Your local lab can assist you in obtaining the patient report if you don't have a Connect account. [email or web address] Interpretation PEth See Comment 04/09/2025 5:00 PM CDT [facility] ([facility]) Comment: Phosphatidylethanol (PEth) is a group [...] developed and its performance characteristics determined by [facility]. It has not been cleared or approved by the U.S. Food and Drug Administration. This test was performed in a CLIA-certified laboratory and is intended for clinical purposes. Performed By: [facility] [address] [place] [address] Carrier Loader: Zev Mendoza MD, PhD CLIA Number: [id number] Blood BLOOD SPECIMEN / Unknown Lab Venipuncture / Unknown 04/07/2025 11:54 AM CDT 04/07/2025 12:03 PM CDT Junie Panda NETWORK TECHNOLOGY INSTRUCTOR-BLOCKMAN LAB - CHEMISTRY ORD ERABLES Final Result [facility]) [address] [place] [address] * SMOOTH MUSCLE ANTIBODY W REFLEX TITER (04/07/2025 11:54 AM CDT) F-Actin Antibody IgG 7 0 - 19 Units 04/09/2025 7:09 AM CDT [facility] ([facility]) Comment: If F-Actin (Smooth Muscle) Antibody, [...] suspicion for AIH is strong. Performed By: [facility] [address] [place] [address] Carrier Loader: Zev Mendoza MD, PhD CLIA Number: [id number] Blood BLOOD SPECIMEN / Unknown Lab Venipuncture / Unknown 04/07/2025 11:54 AM CDT 04/07/2025 12:03 PM CDT Junie Panda NETWORK TECHNOLOGY INSTRUCTOR-BLOCKMAN LAB - SEROLOGY ORDE JAZZ Final Result [facility] ([facility]) [address] [place] [address], [facility] * [...] HBV-infected or suspected HBV-infected mothers. Junie Panda [facility] - SEROLOGY ORDE RABLES Final Result Performing Organization Address City/[facility] [address]/ZIP Co de Phone Number [facility] [address] [place] [address], [facility] [phone] * (ABNORMAL) YAQUELIN BLOOD SCREEN W/REFLEX TITER (04/07/2025 11:54 AM CDT) YAQUELIN IgG Detected (A) None Detected 04/09/2025 7:34 AM CDT [facility] ([facility]) Comment: Anti-Nuclear Antibodies (YAQUELIN) detected by [...] dsDNA, histones, SS-A (Ro), SS-B (La), Pascal, Pascal/PRODUCTION LINE SOLDERER, Scl-70, Autumn-1, centromeric proteins, other antigens extracted from the HEp-2 cell nucleus. YAQUELIN HONEY assays have been reported to have lower sensitivities than YAQUELIN IFA for systemic autoimmune rheumatic diseases (SARD). Negative results do not necessarily rule out SARD. Performed By: [facility] [address] [place] [address] Carrier Loader: Zev Mendoza MD, PhD CLIA Number: [id number] Blood BLOOD SPECIMEN / Unknown Lab Venipuncture / Unknown 04/07/2025 11:54 AM CDT 04/07/2025 12:04 PM CDT Junie Panda NETWORK TECHNOLOGY INSTRUCTOR-[facility] LAB - CHEMISTRY ORD ERABLES Final Result Performing Organization Address [facility] [address]/ZIP Co de Phone Number [facility]) [address] [place] [address], [facility] * MICROSOMAL ANTIBODY LIVER/KIDNEY (04/07/2025 11:54 AM CDT) Liver/Kidney Microsomal Antibody IgG <1:20 <1:20 2025 6:49 AM CDT [facility] ([facility]) Comment: INTERPRETIVE INFORMATION: Ccihe-Hcbomq-Awwnnmmjg Abs, IgG Liver-Kidney Microsome IgG antibody (anti-LKM), as detected by indirect immunofluorescent antibody (IFA) techniques, may be observed in patients with autoimmune hepatitis type 2 (AIH-2), AIH-2 associated with autoimmune prxxebkvnvhufcdyoc-tcvjhyvaxrd-mklgxfkncb dystrophy (APECED), viral hepatitis C or D, and some forms of drug-induced hepatitis. This IFA does not differentiate among the four types of LKM antibodies (LKM-1, LKM-2, LKM-3, and a fourth type that recognizes CY and CY antigens). Of these, anti-LKM-1 (cytochrome [id number]) IgG antibodies are considered specific for AIH-2. This test was developed and its performance characteristics determined by [facility]. It has not been cleared or approved by the US Food and Drug Administration. This test was performed in a CLIA certified laboratory and is intended for clinical purposes. Performed By: [place] [address] Carrier Loader: Zev Mendoza MD, PhD CLIA Number: [id number] Blood BLOOD SPECIMEN / Unknown Lab Venipuncture / Unknown 04/07/2025 11:54 AM CDT 04/07/2025 12:03 PM CDT us Junie Panda NETWORK TECHNOLOGY INSTRUCTOR-BLOCKMAN LAB - CHEMISTRY ORD ERABLES Final Result [facility]) [address] [place] [address] * CERULOPLASMIN (04/07/2025 11:54 AM CDT) Ceruloplasmin 30 20 - 60 mg/dL 04/07/2025 2:11 PM CDT [facility] Blood BLOOD SPECIMEN / Unknown Lab Venipuncture / Unknown 04/07/2025 11:54 AM CDT 04/07/2025 12:03 PM CDT Junie Panda NETWORK TECHNOLOGY INSTRUCTOR-BLOCKMAN LAB - CHEMISTRY ORD ERABLES Final Result [facility] [address] [place] [address], [facility] [phone] * GILYA-1-GNRYTVSODTK BLOOD (04/07/2025 11:54 AM CDT) Jiwsn-1-Idsyze ypsin 136 90 - 200 mg/dL 04/07/2025 10:09 PM CDT [facility] Blood BLOOD SPECIMEN / Unknown Lab Venipuncture / Unknown 04/07/2025 11:54 AM CDT 04/07/2025 12:03 PM CDT Junie Panda APRN-BLOCKMAN LAB - CHEMISTRY ORD ERABLES Final Result [facility] [address] [place] [address], [facility] [phone] * CBC WITH DIFFERENTIAL (04/07/2025 11:54 AM [...] 04/07/2025 12:06 PM CDT us Junie Panda NETWORK TECHNOLOGY INSTRUCTOR-BLOCKMAN LAB - HEMATOLOGY OR DERABLES Final Result [facility] [address] [place] [address], [facility] [phone] * (ABNORMAL) COMPREHENSIVE METABOLIC PANEL (04/07/2025 11:54 [...] (2020), per the National Kidney Foundation and [place] Society of Nephrology recommendations. Junie [facility] - CHEMISTRY ORD ERABLES Final Result [address] [address], [facility] [phone] * HEPATITIS B CORE ANTIBODY TOTAL (04/07/2025 11:54 AM CDT) HBc Antibody Total Non-reacti ve Non-reacti ve 04/07/2025 1:27 PM CDT [facility] Blood BLOOD SPECIMEN / Unknown Lab Venipuncture / Unknown 04/07/2025 11:54 AM CDT 04/07/2025 12:03 PM CDT Junie Panda NETWORK TECHNOLOGY INSTRUCTOR-[facility] LAB - CHEMISTRY ORD ERABLES Final Result [address] [address], [place] [phone] * (ABNORMAL) GGT (04/07/2025 11:54 AM CDT) GGT 83(H) 9 - 64 Units/L 04/07/2025 12:58 PM CDT [facility] Blood BLOOD SPECIMEN / Unknown Lab Venipuncture / Unknown 04/07/2025 11:54 AM CDT 04/07/2025 12:06 PM CDT Junie Panda NETWORK TECHNOLOGY INSTRUCTOR-BLOCKMAN LAB - CHEMISTRY ORD ERABLES Final Result [address] [address], [place] [phone] * IMMUNOGLOBULINS IGG/IGM/IGA PANEL (04/07/2025 11:54 AM [...] CDT 04/07/2025 12:03 PM CDT Junie Panda NETWORK TECHNOLOGY INSTRUCTOR-BLOCKMAN LAB - CHEMISTRY ORD ERABLES Final Result [address] [address], [place] [phone] * IRON + TRANSFERRIN PANEL (04/07/2025 11:54 [...] 04/07/2025 12:03 PM CDT Junie Cecilio Panda NETWORK TECHNOLOGY INSTRUCTOR-BLOCKMAN LAB - CHEMISTRY ORD ERABLES Final Result Performing Organization Address [facility] Co de Phone Number [address] [address], [facility] [phone] * HEPATITIS C ANTIBODY (04/07/2025 11:54 AM [...] CDT 04/07/2025 12:03 PM CDT Junie Panda NETWORK TECHNOLOGY INSTRUCTOR-BLOCKMAN LAB - CHEMISTRY ORD ERABLES Final Result Performing Organization Address [facility] Co de Phone Number [address] [address], [facility] [phone] * (ABNORMAL) HEPATITIS A ANTIBODY (04/07/2025 11:54 AM CDT) Pathologist [facility] Hepatitis A Virus Antibody Total Positive( A) Negative 04/09/2025 8:39 PM CDT [facility] ([facility]) Comment: The positive anti-HAV is consistent with recent or remote Hepatitis A infection or antibody response to HAV vaccination. False positive anti-HAV can occur. Performed By: [facility] [address] [place] [address] Carrier Loader: Zev Mendoza MD, PhD CLIA Number: [id number] Blood BLOOD SPECIMEN / Unknown Lab Venipuncture / Unknown 04/07/2025 11:54 AM CDT 04/07/2025 12:03 PM CDT Junie Panda APRN-BLOCKMAN LAB - CHEMISTRY ORD ERABLES Final Result [facility] ([facility]) [address] [place] [address], [facility] * (ABNORMAL) FERRITIN (04/07/2025 11:54 AM CDT) Ferritin 446(H) 13 - 204 ng/mL 04/07/2025 1:27 PM CDT [facility] Blood BLOOD SPECIMEN / Unknown Lab Venipuncture / Unknown 04/07/2025 11:54 AM CDT 04/07/2025 12:03 PM CDT Junie Panda APRN-[facility] LAB - CHEMISTRY ORD ERABLES Final Result Performing Organization Address City/[facility] [address] [facility]/ZIP Co de Phone Number [facility] [address] [place] [address], [facility] [phone] * MD LIVER ELASTOGRAPHY (04/07/2025 9:52 AM CDT) Narrative [...] of liver-related events. J Hepatol (2021) 76: 2924-5671. Aguila PJ, Dorota M, Chichi M, et al. Accuracy of FibroScan controlled attenuation parameter and liver stiffness measurement in assessing steatosis and fibrosis in patients with nonalcoholic fatty liver disease. Gastroenterology 2019;156:8353-2281. Shireen HECTOR, Venita R, Van Guy GARICA, et al. Vibration-controlled transient elastography to assess [...] at-risk nonalcoholic steatohepatitis (BRYANT) in a [place] cohort and comparison to other non-invasive algorithms. PLoS ONE (2021) 17: [id number]. Dario AJ, Carl J, Jes ZM, et al. Enhanced diagnosis of advanced fibrosis and cirrhosis in individuals with NAFLD using FibroScan-based Agile scores. J Hepatol (2022) 78: 247-259. Selin et al. Vibration-controlled transient elastography scores to predict liver-related events in steatotic liver disease. JOAN (2023) 331: 1322-8200 Fibroscan LSM can also be used with laboratory parameters without formulas to assess prognosis. According to the Baveno-VII criteria (de Dariel, 202), Fibroscan LSM <=15 kPa plus a platelet count of >=641g452/L rules out clinically significant portal hypertension (sensitivity [...] FIB-4 score (Placidoyduke et al. Hepatology Communications 2019;3:3029-9792) or NAFLD Fibrosis score (Titus et al. Clinical Gastroenterology and Hepatology 2019;17:2106-2436 using routine clinical data. Notes: 1. Fibroscan [...] additional interpretive data was last updated 11/01/24.) [email or web address] Junie Panda NETWORK TECHNOLOGY INSTRUCTOR-BLOCKMAN PROCEDURE/MINOR RM GICAL ORDERABLES Final Result from Last 3 Months Insurance [address] [facility] [place] [address] Care Teams Service Captain Relationship Specialty Start Date End Date Radha Layton, NETWORK TECHNOLOGY INSTRUCTOR-BLOCKMAN [address] [place] [address] PCP - General Nurse Practitioner 04/07/25
--- OUTSIDE RECORDS SUMMARY | 2025-06-16 01:41 | XMS_ITS | Clinical Summary ---
Author Organization [facility] Address [address] [place] [address] Care Team Providers Care Background Investigator Name Role Phone Unavailable Primary Care Provider Unavailabl e Social History Tobacco Use Types Packs/Day Years Used Date Smoking Tobacco: Never Assessed Comments Unknown Sex and Gender Information Value Date Recorded Sex Assigned at Not on file Legal Sex Female 1:24 PM STRATEGY CONSULTANT Gender Identity Not on file Sexual Orientation [...]
--- OUTSIDE RECORDS SUMMARY | 2025-06-16 01:41 | XMS_ITS | Clinical Summary ---
Author Organization [facility] Address [address] [place] [address] Care Team Providers Care Glassware Selector Name Role Phone Radha Layton NP Primary Care Provider [phone] Allergies Active Allergy Reactions Criticality Noted Date [...] - 04/03/2025 11:59 PM CDT Hospital Encounter [facility] - Imaging [address] [place] [address] Screening mammogram, encounter for Discharge Disposition: Discharge to home or self care 04/03/2025 Results Follow-Up [facility] [address] [place] [address] Marcela Bell MD Screening Mammogram [...] file Legal Sex Female 9:10 AM MANAGER VAN Gender Identity Not on file Sexual Orientation [...] CDT Pulse 78 01/05/2024 9:00 AM MANAGER VAN Temperature 36.1 C (97 F) 05/21/2020 11:45 [...] this topic Medical Devices Implanted Type Area Wallpaper Remover Steam Device Identifier Shelf Expiration Date Model / Serial / Lot [employer] Mammomark 8ga Bowtie Identifier Biopsy Site [id number] - [id number] Implanted:Qty: 1 on 01/05/2024 at [facility] Right: Breast Cloudamizer [employer] [id number] 12/23/2024 [id number] / / [id number] Procedures Procedure Name Priority Date/Time Associated [...] HPV HR 18 Not Detected Not Detected [facility] HPV HR Non 16/18 Not Detected Not Detected [facility] Comment: Interpretive Data Nucleic acid amplification [...] this test have been verified by the [facility]. Correlate with separately reported cytology results, as applicable. Interpretive data last revised 23 Endocervical 04/22/2024 5:07 PM CDT 04/22/2024 10:06 PM CDT Narrative [facility] - 04/25/2024 8:17 PM CDT Clinical history and diagnosis->screening Testing type->Screening Last menstrual period (date if known)->IUD in placec Marcela Bell MD LAB BODY FLUIDS AND ST OOLS ORDERABLES Final Result [facility] [address] [place] [address] from Last 3 Months or Most Recently Relevant to Health Maintenance Insurance [facility] H[facility]/PPO Address: [address] [address] [facility] HMO/PPO Address: [address] [address] [place] [address] [facility] Member Subscriber Plan / Payer (Ef fective 2022-Present) Name:Marcelina Haque Relation to Subscriber:Self Name:Marcelina Haque Payer ID:[id number] ([facility]) Type:[place] Address: [address] [facility] H[facility]/PPO Address: [address] [address] [place] [address] Care Teams Glassware Selector Relationship Specialty Start Date End Date Radha Layton NP [address] [facility] [address] [place] [address] PCP - General Internal Medicine 02/17/25
--- OUTSIDE RECORDS SUMMARY | 2025-06-16 01:41 | XMS_ITS | Clinical Summary ---
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
--- OUTSIDE RECORDS SUMMARY | 2025-06-16 01:41 | XMS_ITS | Encounter Summary ---
Author Organization [facility] Address [address] [place] [address] Phone Care Team Providers Care Cherry Dipper Name Role Phone No, Physician Primary Care Provider [phone] Ady Bautista MD Primary Care Provider [phone] Radha Layton NP Primary Care Provider [phone] Encounter Details Date Type Department Care Team (Late st Contact Info) Description 01/11/2018 Orders Only [facility] ProviderAntonio MD [address] [place] [address] Social History Tobacco Use Types Packs/Day Years Used Date Smoking Tobacco: Never Assessed Comments Unknown Sex and Gender Information Value Date Recorded Sex Assigned at Not on file Legal Sex Female 9:[address]LER Gender Identity Not on file Sexual Orientation [...] on filedocumented in this encounter Care Teams Cherry Dipper Relationship Specialty Start Date End Date No, Physician PCP - General 01/11/18 06/18/20 Ady Bautista MD PCP - General 06/19/20 02/16/25 Radha Layton NP [address] [place] [address] DR [address] [place] [address] PCP - General Internal Medicine 02/17/25 documented as of this encounter
--- NOTE | 2025-06-16 11:07 | P.PNAN_ITS ---
Anes - Initial Pre Proc Eval Procedure: Operation Date: 06/16/25 13:00 Proposed Procedures p Cystoscopy, Left Ureteroscopy, Possible Left Retrograde Pyelogram, Possible Left Stone Extraction, Possible Left Stent Removal/Exchange, Possible Holmium Laser Procedure - Reinier Santos MD Date/Time: 06/16/25 11:07 Surgeon: Reinier Santos MD Pre Op Diagnosis: left ureteral stone Patient Data Age: 45 Gender: F Height: 1.75 m Weight: 107.7 kg Allergies Allergy/AdvReac Type Severity Reaction Status Date / Time No Known Allergies Allergy Verified 06/13/25 09:32 Home Medications ?Medication ?Instructions ?Recorded ?Confirmed ?Type venlafaxine 75 mg capsule,extended 75 mg PO DAILY #90 caps 11/22/24 06/13/25 Rx release 24 hr atorvastatin 10 mg tablet (Lipitor) 10 mg PO QHS #90 tabs 12/20/24 06/13/25 Rx bupropion HCl 150 mg 24 hr tablet, 150 mg PO QAM #90 tabs 02/26/25 06/13/25 Rx extended release (Wellbutrin XL) semaglutide 2 mg/dose (8 mg/3 mL) 2 mg (0.75 mL) subcut WEEKLY #3 mL 06/05/25 06/13/25 Rx subcutaneous pen injector (Ozempic) ketorolac 10 mg tablet 10 mg PO Q8H PRN pain #9 tabs 06/11/25 06/13/25 Rx Patient hx anesthesia problems: none Family hx anesthesia problems: none Results Review: All pre-operative results and documents have been reviewed as part of the pre- operative evaluation. [facility] Past Medical History Medical History Fatty liver Hyperlipidemia Type 2 diabetes mellitus IBS (irritable bowel syndrome) Fracture of right elbow Anxiety Surgical History Surgical History Status post cholecystectomy lap dada 06/[address] Webber. H/O section x2 Family History Family History Other Ovarian cancer Social History Social History Smoking packs per day: 0.5 Smoking cigarettes per day: 10.0 Years smoked: 7 Smoking pack-years: 3.50 Smoking status: Never smoker Tobacco type: cigarettes Smoking end date: 10/30/05 Alcohol intake: never Drinks per week: 3 Substance use: never Substance use type: does not use Do You Feel Safe in your Home?: Yes Lack of Transportation: No Lack of Food: Never True Current Housing: I Have Housing Concerned About Future Housing: No Difficulty Paying Gas/Electric Bills: No Difficulty Paying for Meds: No Currently Unemployed: No Education: Bachelor's Degree Difficulty w/ Childcare or Family Care: No Living arrangements: with family Occupation/Education: occupation Gender identity (if verbalized by the patient): Female Spiritual care concerns: No Anes - Eval Final PreProcedure Day of Procedure 06/16/25 11:07 Patient weight: obese Heart: regular rate and rhythm Lungs: clear to auscultation Airway: Mallampati scale class II Neurological: alert and oriented Last oral intake: >/= 8 hours ASA classification: III Emergent: no Anesthetic plan: proceed Anesthesia type and monitoring: general LMA and standard monitoring Results Review: All pre-operative results and documents have been reviewed as part of the pre- operative evaluation. Informed Consent: The patient's anesthetic plan and its attendant risks and benefits were discussed with the patient/family/POA. Questions were solicited and answers provided to the satisfaction of the patient/family/POA.
[2025-06-16 11:30] VITALS: BP 118/68; PULSE 77; RESP 16; TEMP 36.7; O2SAT 96
--- NOTE | 2025-06-16 11:52 | WPDHPUPDATE1 ---
History and Physical Update Update Date/Time: 06/16/25 11:52 History and Physical has been reviewed, including an updated exam of the patient. There are NO changes in the patient's condition. Risks, benefits, and alternatives have been discussed and questions answered. Patient agrees to proceed with procedure.
[2025-06-16] MEDS: LACTATED RINGERS 1,000 ML 30 ML IV CONT (12:26)
[2025-06-16] MEDS: ceFAZolin 2 GM in SODIUM CHLORIDE 0.9% IV 50 ML 100 ML IVPB (13:14)
[2025-06-16] MEDS: LIDOCAINE 2% GEL UROJET 10 ML PKG MUCOUS MEM (13:14)
--- NOTE | 2025-06-16 13:41 | S_PTH ---
PATIENT: Marcelina Weaver LOC: [facility] U#:[id number] AGE/SX: 45/F ROOM: RE06/16/[address]: Reinier Santos, : 1980 BED: DIS: 06/16/2025 SPEC #: [id number] RECD: 06/17/25 08:06 STATUS: MITRA REArchie #: [id number] CORI: 06/16/25 13:[address]: Tom,Reinier Valentin DEPT: [facility] Surgical RECD BY: Omaira Samaniego ENTERED: 06/17/25 08:06 SP TYPE: Surgical OTHR DR: Radha Layton, SOL Tissues: A - Stone Procedures: Gross Exam Level 1 Crystalline Analysis
--- NOTE | 2025-06-16 13:47 | P.OP_ITS ---
Procedure Note - Detailed Date of Procedure 06/16/25 Pre-op Diagnosis left ureteral stone x2 Post-op Diagnosis Same Procedure Performed Cystoscopy, left retrograde, left ureteroscopy with stone extraction x2, left ureteral stent exchange 4.8 Georgian contour Surgeon Reinier Santos MD Anesthesia General Description of Procedure Patient was taken to the operative suite correctly identified. Once anesthesia was obtained she was placed in the dorsal lithotomy position and prepped and draped usual sterile fashion. Nineteen Georgian scope was inserted the bladder. The prior stent was grasped and brought out to the meatus. Sensor wire was passed through the stent. Ureteral access sheath was then placed. Mini flexible ureteral scope was inserted. She had 2 stones in the proximal ureter. Using escape basket were able to retrieve both stones. These were sent for analysis. Reinspection revealed no residual stones at this time. Pyelogram was then performed to confirm placement of the stent. 4.8 Georgian contour stent was placed with the proximal end coiled in the left renal pelvis and the distal in the bladder. Bladder was drained. 2% viscous lidocaine was inserted into the urethra and patient was taken recovery stable condition. She will follow-up possibly later in the week for stent removal if she is not tolerating it. This completes dictation. Please send a copy of op note to my office. Estimated Blood Loss 0 Drains Yes Packing No Pathology Yes Complications No immediate complications Condition Stable Disposition PACU
[2025-06-16 13:51] VITALS: BP 115/50; PULSE 84; RESP 10; TEMP 37.1; O2SAT 99
[2025-06-16 14:05] VITALS: BP 121/66; PULSE 85; RESP 18; O2SAT 99
[2025-06-16 14:20] VITALS: BP 123/62; PULSE 80; RESP 18; O2SAT 99
[2025-06-16 14:31] VITALS: BP 150/77; PULSE 80; RESP 18
[2025-06-16] MEDS: oxyCODONE HCL (*CRX) 5 MG TAB IR PO (14:43)
[2025-06-16 15:00] VITALS: BP 146/55; PULSE 79; RESP 16
== END 2025-06-16 15:20 | disposition home or self-care (01) ==
PROVIDERS: PCP Nurse Practitioner; Visit Provider Urology
PROC: (CPT 52352; principal; 2025-06-16 13:00)
DX: N20.1 Calculus of ureter (principal); E78.5 Hyperlipidemia, unspecified; E11.9 Type 2 diabetes mellitus without complications; K58.9 Irritable bowel syndrome, unspecified; F41.9 Anxiety disorder, unspecified; E66.9 Obesity, unspecified; Z68.35 Body mass index [BMI] 35.0-35.9, adult; Z79.85 Long-term (current) use of injectable non-insulin antidiabetic drugs; Z98.890 Other specified postprocedural states; Z90.49 Acquired absence of other specified parts of digestive tract; Z87.891 Personal history of nicotine dependence; Z80.3 Family history of malignant neoplasm of breast; Z80.41 Family history of malignant neoplasm of ovary
CPT/HCPCS: 52356; 74420; 82365; 82948; 88300; J0690; A9270; C1769; C1894; C2617; J1100; J2250; J2405; J2704; J3010; J7120; Q9966

== ENCOUNTER 2025-07-22 08:35 | Outpatient (CLI) | payer BC, OTHER, SELFPAY ==
--- OUTSIDE RECORDS SUMMARY | 2025-07-22 08:53 | XMS_ITS | Clinical Summary ---
Author Organization [facility] Address [address] [place] [address] Care Team Providers Care Assistant Art Director Name Role Phone Radha Layton Bolivar HORTON-TOOLMAKER GRADE THREE Primary Care Provider [phone] Source Comments [facility],non-owned Affiliates and Associated Physician Practices is amultiple site organization consisting of ambulatory clinics and hospital sitesin [place], [place], [place] and [place]. This disclosure is being madepursuant to the Care Everywhere program and may not contain all information available regarding this patient. Last updated 18.[facility] Allergies Active Allergy Reactions Criticality Noted Date Comments Oxycodone EMPLOYMENT AGENCY MANAGER Dysfunction,Naus ea and/or Vomiting,Other Medium 02/18/2016 Diazepam [...] Former Cigarettes 0.3 10 1 996 - 2005 Tobacco Cessation:Counseling Given: Not Answered Comments:1 pack [...] st Contact Info) Description 10/09/2025 8:30 AM RN DOCUMENTATION SPECIALIST Office Visit [facility] - [address] [place] [address] Junie Panda, SPOOL WORKER-TOOLMAKER GRADE THREE [address] [address] Health Maintenance Due Date Last Done Comments [...] 19+ 3-dose series) 1997 PAP SMEAR 1999 DEPRESSION SCREENING 10/30/2024 COVID-19 VACCINE ( - season) 2025 INFLUENZA VACCINE (#1) 2025 08/12/2015 MAMMOGRAM 04/03/2027 [...] Patient-Stated? Author Medication Management General On track( 025 11:14 AM CDT) Jia Khan, RN Note: Expected end date: ongoing Interventions: Take all medications as prescribed Let your doctor know right away about any changes in your medications Make sure to request a refill of your medication at least one week prior to your last dose Make and keep follow-up appointments General On track( 025 11:14 AM CDT) No Jai Bray RN Procedures Procedure Name Priority Date/Time Associated Diagnosis Comments COMPREHENSIVE METABOLIC PANEL Routine 04/07/2025 11:54 AM CDT Elevated liver enzymes HEPATITIS C ANTIBODY Routine 04/07/2025 11:54 AM CDT Elevated liver enzymes MAMMO BILAT SCREENING Routine 08/15/2013 2:01 PM CDT Family history of breast cancer from Last 3 Months or Most Recently Relevant to Health Maintenance Results * (ABNORMAL) COMPREHENSIVE METABOLIC PANEL (04/07/2025 11:54 AM CDT) BUN 17 7 - 26 mg/dL 04/07/2025 12:58 PM [facility] Creatinine 1.03(H) 0.56 - 0.96 mg/dL 04/07/2025 12:[address] [facility] Sodium 141 136 - 145 mmol/L 04/07/2025 12:58 PM [facility] Potassium 4.5 3.5 - 4.5 mmol/L 04/07/2025 12:58 PM [facility] Chloride 105 98 - 107 mmol/L 04/07/2025 12:58 PM [facility] CO2 25 22 - 29 mmol/L 04/07/2025 12:58 PM [facility] Glucose 102(H) 70 - 99 mg/dL 04/07/2025 12:58 PM [facility] Calcium 10.5(H) 8.4 - 10.2 mg/dL 04/07/2025 12:58 PM [facility] Protein Total 8.1 6.0 - 8.3 g/dL 04/07/2025 12:58 PM [facility] Albumin 4.9 3.4 - 5.0 g/dL 04/07/2025 12:58 PM [facility] Bilirubin Total 0.8 0.2 - 1.2 mg/dL 04/07/2025 12:58 PM [facility] Alkaline Phosphatase 106 40 - 150 U/L 04/07/2025 12:58 PM [facility] ALT 85(H) 5 - 55 U/L 04/07/2025 12:58 PM [facility] AST 53(H) 5 - 34 U/L 04/07/2025 12:58 PM [facility] Anion Gap 11 6 - 16 04/07/2025 12:58 PM [facility] BUN/Creatinine Ratio 17 7 - 23 04/07/2025 12:58 PM [facility] Osmolality Calculated 294 275 - 295 mOsm/kg 04/07/2025 12:58 PM [facility] Albumin/Globulin Ratio 1.5 1.1 - 2.3 04/07/2025 12:58 PM [facility] eGFR by CKD-EPI 68(L) >=90 mL/min/1.7 3 m2 04/07/2025 12:58 PM [facility] Blood BLOOD SPECIMEN / Unknown Lab Venipuncture / Unknown 04/07/2025 11:54 AM T 04/07/2025 12:06 PM [facility] - 04/07/2025 12:58 PM [facility] Estimated Glomerular Filtration Rate (eGFR) calculated using the CKD-EPI Creatinine Equation (2020), per the National Kidney Foundation and [place] Society of Nephrology recommendations. Junie Panda SPOOL WORKER-TOOLMAKER GRADE THREE LAB - CHEMISTRY ORD ERABLES Final Result [facility] [address] [place] [address] [phone] * HEPATITIS C ANTIBODY (04/07/2025 11:54 AM [facility]) Hepatitis C Antibody Non-react idalmis Non-reac tive 04/07/2025 1:27 PM [facility] Comment:Hepatitis C Antibody screen indicates no [...] CDT 04/07/2025 12:03 PM CDT Junie Panda SPOOL WORKER-TOOLMAKER GRADE THREE LAB - CHEMISTRY ORD ERABLES Final Result Performing Organization Address City/[facility]/ZIP Co de Phone Number [facility] [address] [place] [address], [facility] [phone] * SUSIE SCREENING DIGITAL IMAGE BILATERAL [id number] [...] Spot image left breast with possible sonogram. [facility][note 3] utilizes Ziipa as a reminder system to notify patients [...] Spot image left breast with possible sonogram. [facility][note 3] utilizes Ziipa as a reminder system to notify patients of their next recommended mammogram. Naldo Meraz MD MAMMO ORDERABLES Final Resu lt from Last 3 Months or Most Recently Relevant to Health Maintenance Insurance [facility] Care Teams Assistant Art Director Relationship Specialty Start Date End Date Radha Layton, SPOOL WORKER-TOOLMAKER GRADE THREE [address] [place] [address] PCP - General Nurse Practitioner 04/07/25
--- OUTSIDE RECORDS SUMMARY | 2025-07-22 08:53 | XMS_ITS | Clinical Summary ---
Author Organization [facility] Address [address] [place] [address] Care Team Providers Care Payroll Human Resources Assistant Name Role Phone Radha Layton NP Primary Care Provider [phone] Allergies Active Allergy Reactions Criticality Noted Date [...] on file Legal Sex Female 9:10 AM DISPLAY CARD WRITER Gender Identity Not on file Sexual Orientation [...] AM CDT Pulse 78 01/05/2024 9:00 AM DISPLAY CARD WRITER Temperature 36.1 C (97 F) 05/21/2020 11:45 [...] - Tdap) 1989 Hepatitis B Screening 1996 Cervical Cancer Screening 04/22/2025 04/22/2024, Regular Well Visit/Exam 18-64 04/22/2025 04/22/2024, 06/23/2022, 06/07/2021, Additional history exists Covid-19 Vaccine ( - season) 2025 10/06/2021 Influenza Vaccine (#1) 2025 08/12/2015 Breast Cancer Screening-Mammogram 04/03/2026 04/03/2025, 12/28/2023, 02/16/2022, Additional history exists Pneumococcal vaccine <65 Aged Out No longer eligible based on patient's age to complete this topic Medical Devices Implanted Type Area Pilates Instructor Device Identifier Shelf Expiration Date Model / Serial / Lot [employer]e Inc Mammomark 8ga Bowtie Identifier Biopsy Site [id number] - [id number] Implanted:Qty: 1 on 01/05/2024 at [facility] Right: Breast [id number] [id number] 12/23/2024 [id number] / / [id number] Procedures Procedure Name Priority Date/Time Associated [...] HPV HR 18 Not Detected Not Detected [facility] HPV HR Non 16/18 Not Detected Not Detected [facility] Comment: Interpretive Data Nucleic acid amplification [...] this test have been verified by the [facility]. Correlate with separately reported cytology results, as applicable. Interpretive data last revised 23 Endocervical 04/22/2024 5:07 PM CDT 04/22/2024 10:06 PM CDT Narrative [facility] - 04/25/2024 8:17 PM CDT Clinical history and diagnosis->screening Testing type->Screening Last menstrual period (date if known)->IUD in placec Marcela Bell MD LAB BODY FLUIDS AND ST OOLS ORDERABLES Final Result [facility] [address] [place] [address] from Last 3 Months or Most Recently Relevant to Health Maintenance Insurance [facility] H[facility]/PPO Address: [id number] [place] [address] [facility] H[facility]/PPO Address: [address] [address] [facility] Address: [address] [place] [address] [facility] Address: [address] [facility] H[facility]/PPO Address: [address] [address] [place] [address] Care Teams Payroll Human Resources Assistant Relationship Specialty Start Date End Date Radha Layton NP [address] [place] [address] [address] PCP - General Internal Medicine 02/17/25
--- OUTSIDE RECORDS SUMMARY | 2025-07-22 08:53 | XMS_ITS | Clinical Summary ---
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
--- OUTSIDE RECORDS SUMMARY | 2025-07-22 08:53 | XMS_ITS | Clinical Summary ---
Author Organization [facility] Address [address] [place] [address] Phone Care Team Providers Care Carpet Jack Name Role Phone dAy Bautista MD Primary Care Provider [phone] Allergies Active Allergy Reactions Criticality Noted Date [...] Bautista MD Referring Provider: Ady Bautista MD [address] [place] [address] Other: Problem Noted Date Diagnosed Date Fibrocystic [...] on file Legal Sex Female 5:55 AM DIRECTOR CPG Gender Identity Not on file Sexual Orientation [...] Advance Directives For more information, please contact: [phone] * Full Code (Latest Code Status on File) Date Activated Date Inactivated Comments 02/18/2016 10:51 AM 02/18/2016 4:08 PM * Full Code Date Activated Date Inactivated Comments 02/18/2016 10:48 AM 02/18/2016 10:51 AM Care Teams Carpet Jack Relationship Specialty Start Date End Date Ady Bautista MD [address] [place] [address] PCP - General Internal Medicine 01/15/16
--- OUTSIDE RECORDS SUMMARY | 2025-07-22 08:53 | XMS_ITS | Encounter Summary ---
Author Organization [facility] Address [address] [place] [address] Phone Care Team Providers Care Polyethylene Bag Machine Operator Name Role Phone No, Physician Primary Care Provider [phone] Ady Bautista MD Primary Care Provider [phone] Radha Layton NP Primary Care Provider [phone] Encounter Details Date Type Department Care Team (Late st Contact Info) Description 01/11/2018 Orders Only [facility] ProviderAntonio MD [address] [place] [address] Social History Tobacco Use Types Packs/Day Years Used Date Smoking Tobacco: Never Assessed Comments Unknown Sex and Gender Information Value Date Recorded Sex Assigned at Not on file Legal Sex Female 9:10 AM TRIMMER BUFFING WHEEL Gender Identity Not on file Sexual Orientation [...] on filedocumented in this encounter Care Teams Polyethylene Bag Machine Operator Relationship Specialty Start Date End Date No, Physician PCP - General 01/11/18 06/18/20 Ady Bautista MD PCP - General 06/19/20 02/16/25 Radha Layton NP [address] [place] [address] [address] [place] [address] PCP - General Internal Medicine 02/17/25 documented as of this encounter
[2025-07-22 11:10] LABS: Anion Gap 11 mmol/L (4-12); Blood Urea Nitrogen 16 mg/dL (7-17); Calcium 9.1 mg/dL (8.4-10.2); Carbon Dioxide 23 mmol/L (22-30); Chloride 106 mmol/L (98-107); Cholesterol 236 mg/dL (0-200); Estimated Glomerular Filt Rate 58; Glucose 127 mg/dL (65-110); HDL Direct 40 mg/dL; Potassium 4.2 mmol/L (3.4-5.0); Sodium 140 mmol/L (137-145); Triglycerides 320 mg/dL (<150)
[2025-07-22 13:02] LABS: Hemoglobin A1C 6.1 % (<5.7)
== END 2025-07-22 08:36 | disposition home or self-care (01) ==
LOC: ANHGOSHLAB 08:36
PROVIDERS: PCP Nurse Practitioner; Visit Provider Nurse Practitioner
DX: E78.5 Hyperlipidemia, unspecified (principal); E11.9 Type 2 diabetes mellitus without complications
CPT/HCPCS: 36415; 80048; 80061; 83036

== ENCOUNTER 2025-07-25 09:13 | Outpatient (CLI) | payer BC, OTHER, SELFPAY ==
--- OUTSIDE RECORDS SUMMARY | 2025-07-25 09:17 | XMS_ITS | Clinical Summary ---
Author Organization [facility] Address [address] [place] [address] Care Team Providers Care Manager Support Name Role Phone Unavailable Primary Care Provider Unavailabl e Social History Tobacco Use Types Packs/Day Years Used Date Smoking Tobacco: Never Assessed Comments Unknown Sex and Gender Information Value Date Recorded Sex Assigned at Not on file Legal Sex Female 1:24 PM WOUND/OSTOMY NURSE Gender Identity Not on file Sexual Orientation [...]
--- OUTSIDE RECORDS SUMMARY | 2025-07-25 09:17 | XMS_ITS | Clinical Summary ---
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
--- OUTSIDE RECORDS SUMMARY | 2025-07-25 09:17 | XMS_ITS | Clinical Summary ---
Author Organization [facility] Address [address] [place] [address] Care Team Providers Care Dye Worker Name Role Phone Radha Layton NP Primary Care Provider [phone] Allergies Active Allergy Reactions Criticality Noted Date [...] on file Legal Sex Female 9:10 AM PROJECT ENGINEER CHEMICALS Gender Identity Not on file Sexual Orientation [...] AM CDT Pulse 78 01/05/2024 9:00 AM PROJECT ENGINEER CHEMICALS Temperature 36.1 C (97 F) 05/21/2020 11:45 [...] this topic Medical Devices Implanted Type Area Automatic Fancy Machine Operator Device Identifier Shelf Expiration Date Model / Serial / Lot dVentus Technologies Inc Mammomark 8ga Bowtie Identifier Biopsy Site [id number] - [id number] Implanted:Qty: 1 on 01/05/2024 at [facility] Right: Breast [employer] [id number] 12/23/2024 [id number] / / [id number] Procedures Procedure Name Priority Date/Time Associated [...] HPV HR 18 Not Detected Not Detected [facility] HPV HR Non 16/18 Not Detected Not Detected [facility] Comment: Interpretive Data Nucleic [...] test have been verified by the [facility]. Correlate with separately reported cytology results, as applicable. Interpretive data last revised 23 Endocervical 04/22/2024 5:07 PM CDT 04/22/2024 10:06 PM CDT Narrative [facility] - 04/25/2024 8:17 PM CDT Clinical history and diagnosis->screening Testing type->Screening Last menstrual period (date if known)->IUD in placec Marcela Bell MD LAB BODY FLUIDS AND ST OOLS ORDERABLES Final Result [facility] [address] [place] [address] from Last 3 Months or Most Recently Relevant to Health Maintenance Insurance [facility] ANTHEM ACCESS CHOICE ANTHEM ACCESS CHOICE Member Subscriber Plan / Payer (Ef fective 2022-Present) Name:Marcelina Haque Relation to Subscriber:Self Name:JaiMarcelina mitchell Payer ID:[id number] (NAIC) Type:[facility] Address: [address] Care Teams Dye Worker Relationship Specialty Start Date End Date Radha Layton NP [address] [place] [address] [address] PCP - General Internal Medicine 02/17/25
--- OUTSIDE RECORDS SUMMARY | 2025-07-25 09:18 | XMS_ITS | Encounter Summary ---
Author Organization [facility] Address [address] [place] [address] Phone Care Team Providers Care Bin Filler Name Role Phone No, Physician Primary Care Provider [phone] Ady Bautista MD Primary Care Provider [phone] Radha Layton NP Primary Care Provider [phone] Encounter Details Date Type Department Care Team (Late st Contact Info) Description 01/11/2018 Orders Only [facility] ProviderAntonio MD [address] [place] [address] Social History Tobacco Use Types Packs/Day Years Used Date Smoking Tobacco: Never Assessed Comments Unknown Sex and Gender Information Value Date Recorded Sex Assigned at Not on file Legal Sex Female 9:10 AM SOUND EFFECTS MANAGER Gender Identity Not on file Sexual [...] on filedocumented in this encounter Care Teams Bin Filler Relationship Specialty Start Date End Date No, Physician PCP - General 01/11/18 06/18/20 Ady Bautista MD PCP - General 06/19/20 02/16/25 Radha Layton NP [address] [place] [address] [address] [place] [address] PCP - General Internal Medicine 02/17/25 documented as of this encounter
--- OUTSIDE RECORDS SUMMARY | 2025-07-25 09:18 | XMS_ITS | Clinical Summary ---
Author Organization [facility] Address [address] [place] [address] Care Team Providers Care Crime Victim Specialist Name Role Phone Radha Layton Bolivar HORTON-COPY PREPARER Primary Care Provider [phone] Source Comments [facility],non-owned Affiliates and Associated Physician Practices is amultiple site organization consisting of ambulatory clinics and hospital sitesin [place], [place] and [place]. This disclosure is being madepursuant to the Care Everywhere program and may not contain all information available regarding this patient. Last updated 18.[facility] Allergies Active Allergy Reactions Criticality Noted Date Comments Oxycodone CAKE CUTTER MACHINE Dysfunction,Naus ea and/or Vomiting,Other Medium 02/18/2016 Diazepam [...] st Contact Info) Description 10/09/2025 8:30 AM RACE STARTER Office Visit [facility] - [address] [facility], [place] [address] Junie Panda, PHILOSOPHY FACULTY-COPY PREPARER [address] [place] [address] Health Maintenance Due Date Last Done Comments [...] On track( 025 11:14 AM CDT) No Jia Bray RN Procedures Procedure Name Priority Date/Time [...] 7 - 26 mg/dL 04/07/2025 12:58 PM [facility] Creatinine 1.03(H) 0.56 - 0.96 mg/dL 04/07/2025 12:58 PM [facility] Sodium 141 136 - 145 mmol/L 04/07/2025 12:58 PM [facility] Potassium 4.5 3.5 - 4.5 mmol/L 04/07/2025 12:58 PM [facility] Chloride 105 98 - 107 mmol/L 04/07/2025 12:58 PM [facility] CO2 25 22 - 29 mmol/L 04/07/2025 12:58 PM [facility] Glucose 102(H) 70 - 99 mg/dL 04/07/2025 12:58 PM [facility] Calcium 10.5(H) 8.4 - 10.2 mg/dL 04/07/2025 12:58 PM [facility] Protein Total 8.1 6.0 - 8.3 g/dL 04/07/2025 12:58 PM [facility] Albumin 4.9 3.4 - 5.0 g/dL 04/07/2025 12:58 PM [facility] Bilirubin Total 0.8 0.2 - 1.2 mg/dL 04/07/2025 12:58 PM [facility] Alkaline Phosphatase 106 40 - 150 U/L 04/07/2025 12:58 PM [facility] ALT 85(H) 5 - 55 U/L 04/07/2025 12:58 PM [facility] AST 53(H) 5 - 34 U/L 04/07/2025 12:58 PM [facility] Anion Gap 11 6 - 16 04/07/2025 12:58 PM [facility] BUN/Creatinine Ratio 17 7 - 23 04/07/2025 12:58 PM [facility] Osmolality Calculated 294 275 - 295 mOsm/kg 04/07/2025 12:58 PM [facility] Albumin/Globulin Ratio 1.5 1.1 - 2.3 04/07/2025 12:58 PM [facility] eGFR by CKD-EPI 68(L) >=90 mL/min/1.7 3 m2 04/07/2025 12:58 PM [facility] Blood BLOOD SPECIMEN / Unknown Lab Venipuncture / Unknown 04/07/2025 11:54 AM T 04/07/2025 12:06 PM [facility] - 04/07/2025 12:58 PM [facility] Estimated Glomerular Filtration Rate (eGFR) calculated using the CKD-EPI Creatinine Equation (2020), per the National Kidney Foundation and [place] Society of Nephrology recommendations. Junie Panda PHILOSOPHY FACULTY-COPY PREPARER LAB - CHEMISTRY ORD ERABLES Final Result [facility] [address] [place] [address] [phone] * HEPATITIS C ANTIBODY (04/07/2025 11:54 AM [facility]) Hepatitis C Antibody Non-react idalmis Non-reac tive 04/07/2025 1:27 PM [facility] Comment:Hepatitis C Antibody screen indicates no [...] CDT 04/07/2025 12:03 PM CDT Junie Panda PHILOSOPHY FACULTY-COPY PREPARER LAB - CHEMISTRY ORD ERABLES Final Result Performing Organization Address City/[facility]/ZIP Co de Phone Number [facility] [address] [place] [address], [facility] [phone] * SUSIE SCREENING DIGITAL IMAGE BILATERAL G0202 [...] left breast with possible sonogram. [facility] utilizes Tour Raiser as a reminder system to notify patients [...] left breast with possible sonogram. [facility] utilizes Tour Raiser as a reminder system to notify patients of their next recommended mammogram. Naldo Meraz MD MAMMO ORDERABLES Final Resu lt from Last 3 Months or Most Recently Relevant to Health Maintenance Insurance [facility] Care Teams Crime Victim Specialist Relationship Specialty Start Date End Date Radha Layton, PHILOSOPHY FACULTY-COPY PREPARER [address] [place] [address] PCP - General Nurse Practitioner 04/07/25
[2025-07-25 18:15] LABS: Add Urine Microscopic? YES; Appearance Urine Cloudy (Clear); Glucose Urine UA Negative (Negative); Leukocyte Esterase Ur 2+ LEU/UL (Negative); Nitrate Urine Negative (Negative); Specific Grav Ur 1.015 (1.001-1.035)
== END 2025-07-25 09:14 | disposition home or self-care (01) ==
LOC: ANHGOSHLAB 09:15
PROVIDERS: PCP Internal Medicine; Visit Provider Nurse Practitioner
DX: R82.90 Unspecified abnormal findings in urine (principal)
CPT/HCPCS: 81001; 87086; 87186

== ENCOUNTER 2025-08-12 12:36 | Outpatient (CLI) | payer BC, OTHER, SELFPAY ==
--- NOTE | ~2025-08-12 | XR_ITS ---
EXAMINATION: XR abdomen/kub 1V, 08/12/2025 12:58 CDT HISTORY: LEFT URETERAL STONE COMPARISON: No comparisons available. Technique: 3 view. Findings: Bowel gas pattern unremarkable. No obstruction. Moderate fecal content, questionable right renal calculi the largest 3 mm, there is no definite left ureteral calculus identified. No acute osseous abnormality. Impression: 1. No definite left ureteral calculus. Correlation with CT suggested as clinically warranted Reviewed, dictated and finalized at location P. Impression: 1. No definite left ureteral calculus. Correlation with CT suggested as clinica lly warranted
--- NOTE | ~2025-08-12 | US_ITS ---
EXAMINATION: US retroperitoneal comp DATE: 08/12/2025 13:03 INDICATION: Left ureteral stone TECHNIQUE: Multiple ultrasound grayscale images of the kidneys were obtained. COMPARISON: CT dated 06/11/2025 FINDINGS: The right kidney measures 12.2 x 5.4 x 4.7 cm. The left kidney measures 11.6 x 5.5 x 5.8 cm. The kidneys demonstrate normal echogenicity. No evident shadowing nephrolithiasis. Mild left hydronephrosis. No hydronephrosis the right kidney. The bladder is normal. Normal anteverted uterus measuring 8.3 x 3.8 cm. IMPRESSION: 1. Persistent mild left hydronephrosis. Small stone seen on prior CT are unable be clearly distinguished on the current ultrasound likely due to their small size. Reviewed, dictated and finalized at location A. IMPRESSION: 1. Persistent mild left hydronephrosis. Small stone seen on prior CT are unabl e be clearly distinguished on the current ultrasound likely due to their small size.
== END 2025-08-12 12:37 | disposition home or self-care (01) ==
LOC: GOSHIMG 12:36
PROVIDERS: PCP Nurse Practitioner; Visit Provider Physician Assistant
DX: N20.1 Calculus of ureter (principal); N13.30 Unspecified hydronephrosis
CPT/HCPCS: 74018; 76770

== ENCOUNTER 2025-10-27 08:30 | Outpatient (CLI) | payer BC, OTHER, SELFPAY ==
--- OUTSIDE RECORDS SUMMARY | 2025-10-27 08:36 | XMS_ITS | Clinical Summary ---
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
--- OUTSIDE RECORDS SUMMARY | 2025-10-27 08:36 | XMS_ITS | Clinical Summary ---
Author Organization [facility] [place] Address [address] [place] [address] Phone Care Team Providers Care Spray Applicator Name Role Phone Ady Bautista MD Primary Care Provider [phone] Allergies Active Allergy Reactions Criticality Noted Date [...] Bautista MD Referring Provider: Ady Bautista MD [address] [place] [address] Other: Problem Noted Date Diagnosed Date Fibrocystic [...] Years Used Date Smoking Tobacco: Former Cigarettes 0 Q uit: 01/14/2009 Smokeless Tobacco: Never Comments:5yrs ago Alcohol Use Standard Drinks/Week Comments Yes 3 (1 standard drink = 0.6 oz pur e alcohol) moderate Comments No Sex and Gender Information Value Date Recorded Sex Assigned at Not on file Legal Sex Female 5:55 AM PLUMBING MANAGER Gender Identity Not on file Sexual [...] Recently Relevant to Health Maintenance Insurance [facility] OPTIONS PPO [id number] Advance Directives For more information, please contact: [phone] * Full Code (Latest Code Status on File) Date Activated Date Inactivated Comments 02/18/2016 10:51 AM 02/18/2016 4:08 PM * Full Code Date Activated Date Inactivated Comments 02/18/2016 10:48 AM 02/18/2016 10:51 AM Care Teams Spray Applicator Relationship Specialty Start Date End Date Ady Bautista MD [address] [place] [address] PCP - General Internal Medicine 01/15/16
--- OUTSIDE RECORDS SUMMARY | 2025-10-27 08:36 | XMS_ITS | Clinical Summary ---
Author Organization [facility] Address [address] [place] [address] Care Team Providers Care Teacher Of The Visually Impaired Name Role Phone Radha Layton NP Primary Care Provider [phone] Allergies Active Allergy Reactions Criticality Noted Date [...] on file Legal Sex Female 9:10 AM RAT CULTURIST Gender Identity Not on file Sexual Orientation [...] AM CDT Pulse 78 01/05/2024 9:00 AM RAT CULTURIST Temperature 36.1 C (97 F) 05/21/2020 11:45 [...] this topic Medical Devices Implanted Type Area Authorization Rep Device Identifier Shelf Expiration Date Model / Serial / Lot D square nv Inc Mammomark 8ga Bowtie Identifier Biopsy Site [id number] - [id number] Implanted:Qty: 1 on 01/05/2024 at [facility] Right: Breast [employer] [id number] 12/23/2024 [id number] / / [id number] Procedures Procedure Name Priority Date/Time Associated [...] HPV HR 18 Not Detected Not Detected [facility] HPV HR Non 16/18 Not Detected Not Detected [facility] Comment: Interpretive Data Nucleic acid amplification for [...] PM CDT 04/22/2024 10:06 PM CDT Narrative [facility] - 04/25/2024 8:17 PM CDT Clinical history and diagnosis->screening Testing type->Screening Last menstrual period (date if known)->IUD in placec Marcela Bell MD LAB BODY FLUIDS AND ST OOLS ORDERABLES Final Result [facility] [address] [place] [address] from Last 3 Months or Most Recently Relevant to Health Maintenance Insurance [facility] ANTHEM ACCESS CHOICE ANTHEM ACCESS CHOICE Member Subscriber Plan / Payer (Ef fective 2022-Present) Name:Marcelina Haque Relation to Subscriber:Self Name:JaiMarcelina mitchell Payer ID:[id number] (NAIC) Type:[facility] Address: [id number] Care Teams Teacher Of The Visually Impaired Relationship Specialty Start Date End Date Radha Layton NP [address] [place] [address] [address] PCP - General Internal Medicine 02/17/25
--- OUTSIDE RECORDS SUMMARY | 2025-10-27 08:36 | XMS_ITS | Clinical Summary ---
Author Organization [facility] Address [address] [place] [address] Care Team Providers Care Tester Wafer Substrate Name Role Phone Radha Layton Bolivar HORTON-MANAGER TRAVEL Primary Care Provider [phone] Source Comments [facility],non-owned Affiliates and Associated Physician Practices is amultiple site organization consisting of ambulatory clinics and hospital sitesin [place], [place], [place] and [place]. This disclosure is being madepursuant to the Care Everywhere program and may not contain all information available regarding this patient. Last updated 18.[facility] Allergies Active Allergy Reactions Criticality Noted Date Comments Oxycodone TIRE REPAIRER Dysfunction,Naus ea and/or Vomiting,Other Medium 02/18/2016 Diazepam [...] Care Team (Late st Contact Info) Description 11/06/2025 1:00 PM SPREADER BOX OPERATOR Office Visit [facility] - [address] [facility] [place] [address] Junie Panda, AUTO ELECTRICIAN-MANAGER TRAVEL [address] [place] [address] Health Maintenance Due Date Last Done Comments [...] SMEAR 1999 DEPRESSION SCREENING 10/30/2024 COVID-19 VACCINE (2 - season) 2025 10/06/2021 INFLUENZA VACCINE (#1) 2025 08/12/2015 MAMMOGRAM 04/03/2027 04/03/2025, 06/0 02/2025, 12/28/2023, Additional history exists SCREENING FOR DIABETES [...] On track( 025 11:14 AM CDT) Jia Khan RN Procedures Procedure Name Priority Date/Time Associated [...] 7 - 26 mg/dL 04/07/2025 12:58 PM [facility] Creatinine 1.03(H) 0.56 - 0.96 mg/dL 04/07/2025 12:58 PM [facility] Sodium 141 136 - 145 mmol/L 04/07/2025 12:58 PM [facility] Potassium 4.5 3.5 - 4.5 mmol/L 04/07/2025 12:58 PM [facility] Chloride 105 98 - 107 mmol/L 04/07/2025 12:58 PM [facility] CO2 25 22 - 29 mmol/L 04/07/2025 12:58 PM [facility] Glucose 102(H) 70 - 99 mg/dL 04/07/2025 12:58 PM [facility] Calcium 10.5(H) 8.4 - 10.2 mg/dL 04/07/2025 12:58 PM [facility] Protein Total 8.1 6.0 - 8.3 g/dL 04/07/2025 12:58 PM [facility] Albumin 4.9 3.4 - 5.0 g/dL 04/07/2025 12:58 PM [facility] Bilirubin Total 0.8 0.2 - 1.2 mg/dL [...] 04/07/2025 11:54 AM T 04/07/2025 12:06 PM [facility] - 04/07/2025 12:58 PM [facility] Estimated Glomerular Filtration Rate (eGFR) calculated using the CKD-EPI Creatinine Equation (2020), per the National Kidney Foundation and [place] Society of Nephrology recommendations. Junie Panda AUTO ELECTRICIAN-MANAGER TRAVEL LAB - CHEMISTRY ORD ERABLES Final Result [facility] [address] [place] [address], [facility] [phone] * HEPATITIS C ANTIBODY (04/07/2025 11:54 AM T) Hepatitis C Antibody Non-react idalmis Non-reac tive [...] CDT 04/07/2025 12:03 PM CDT Junie Panda AUTO ELECTRICIAN-MANAGER TRAVEL LAB - CHEMISTRY ORD ERABLES Final Result [address] [address], [facility] [phone] * SUSIE SCREENING DIGITAL IMAGE BILATERAL G0202 [...] Spot image left breast with possible sonogram. [facility] utilizes Inuvo as a reminder system to notify patients [...] Spot image left breast with possible sonogram. [facility] utilizes Inuvo as a reminder system to notify patients of their next recommended mammogram. Naldo Meraz MD MAMMO ORDERABLES Final Resu lt from Last 3 Months or Most Recently Relevant to Health Maintenance Insurance [facility] [place] [id number] Care Teams Tester Wafer Substrate Relationship Specialty Start Date End Date Radha Layton, AUTO ELECTRICIAN-MANAGER TRAVEL [address] [place] [address] PCP - General Nurse Practitioner 04/07/25
--- OUTSIDE RECORDS SUMMARY | 2025-10-27 08:37 | XMS_ITS | Encounter Summary ---
Author Organization [facility] Address [address] [place] [address] Phone Care Team Providers Care Merchandise Marker Name Role Phone No, Physician Primary Care Provider [phone] Ady Bautista MD Primary Care Provider [phone] Radha Layton NP Primary Care Provider [phone] Encounter Details Date Type Department Care Team (Late st Contact Info) Description 01/11/2018 Orders Only [facility] ProviderAntonio MD [address] [place] [address] Social History Tobacco Use Types Packs/Day Years Used Date Smoking Tobacco: Never Assessed Comments Unknown Sex and Gender Information Value Date Recorded Sex Assigned at Not on file Legal Sex Female 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
[2025-10-27 14:02] LABS: Anion Gap 8 mmol/L (4-12); Blood Urea Nitrogen 18 mg/dL (7-17); Calcium 9.7 mg/dL (8.4-10.2); Carbon Dioxide 24 mmol/L (22-30); Chloride 108 mmol/L (98-107); Cholesterol 250 mg/dL (0-200); Estimated Glomerular Filt Rate 52; Glucose 103 mg/dL (65-110); HDL Direct 38 mg/dL; Potassium 4.0 mmol/L (3.4-5.0); Sodium 140 mmol/L (137-145); Triglycerides 354 mg/dL (<150)
[2025-10-27 14:19] LABS: MALB Creatinine Ratio 12.3 mg/g (0-30)
[2025-10-27 17:16] LABS: Hemoglobin A1C 6.0 % (<5.7)
== END 2025-10-27 08:31 | disposition home or self-care (01) ==
LOC: ANHGOSHLAB 08:31
PROVIDERS: PCP Nurse Practitioner; Visit Provider Nurse Practitioner
DX: E11.9 Type 2 diabetes mellitus without complications (principal); E78.5 Hyperlipidemia, unspecified
CPT/HCPCS: 36415; 80048; 80061; 82043; 83036